=== PATIENT | female | born 1955 | race Caucasian/White ===

== ENCOUNTER → 2017-07-29 | Outpatient (CLI) | payer OTHER | END | disposition home or self-care (01) | LOC: OIH 08:16 | PROVIDERS: ATTEND Family Medicine | DX: I10 Essential (primary) hypertension (principal) | CPT/HCPCS: 71046 ==

== ENCOUNTER → 2019-12-27 | Outpatient (CLI) | payer OTHER | END | disposition home or self-care (01) | LOC: SHCH 14:41 | PROVIDERS: ATTEND Internal Medicine Cardiovascular Disease | DX: I87.2 Venous insufficiency (chronic) (peripheral) (principal); R06.00 Dyspnea, unspecified | CPT/HCPCS: 93306; 93356; 93970 ==

== ENCOUNTER → 2024-03-01 | Outpatient (CLI) | payer OTHER ==
[~2024-03-01] MED LIST: ATOR10 PO; CHOL200074 PO; CYAN-35 PO; HYDR12.54 PO; LOSA100T59 PO; MU-V1TAB28 PO; VITA-348 PO
--- NOTE | 2024-03-01 15:57 | HMCIMG ---
CT CORONARY CALCIFICATION SCORING: Anatomic images were reviewed. The calcium score is being generated and reported separately. This report is for the visualized anatomy only. Visualized portions of the lungs are clear. Hilar and mediastinal structures appear normal. Osseous structures are unremarkable. Impression: 1. Negative noncardiac anatomic findings. 2. The calcium score is 38.9 consistent with a mild degree of calcified plaque. This is 50th percentile for a patient this age. CT was performed with one or more following dose reduction techniques: automated exposure control, adjustment of the mA and kv according to patient's size, or use of a iterative reconstruction technique.
== END | disposition home or self-care (01) ==
LOC: RAH 14:52
PROVIDERS: ATTEND Internal Medicine Cardiovascular Disease
DX: Z13.6 Encounter for screening for cardiovascular disorders (principal)
CPT/HCPCS: 75571

== ENCOUNTER → 2024-10-05 | Outpatient (CLI) | payer OTHER ==
[2024-10-05 13:57] LABS: CREATININE 0.7 mg/dL (0.5-1.0); GLOMERULAR FILTR. RATE CALC 92.0 mL/min (>90); UREA NITROGEN, BLOOD 23.0 mg/dL (7-18)
== END | disposition home or self-care (01) ==
LOC: LAB 13:01
PROVIDERS: ATTEND Internal Medicine Gastroenterology
DX: R19.04 Left lower quadrant abdominal swelling, mass and lump (principal)
CPT/HCPCS: 36415; 82565; 84520

== ENCOUNTER → 2024-10-12 | Outpatient (CLI) | payer OTHER ==
[~2024-10-12] MED LIST changes: +IOHEXOL-350 75 ML VIAL IV ONE
--- NOTE | 2024-10-12 12:20 | HMCIMG ---
EXAM: CT Abdomen and Pelvis with Intravenous Contrast CLINICAL HISTORY: Left lower abdominal swelling mass and lump. TECHNIQUE: Axial computed tomography images of the abdomen and pelvis with intravenous contrast. Dose reduction technique was used including one or more of the following: automated exposure control, adjustment of mA and kV according to patient size, and/or iterative reconstruction. CONTRAST: With 75.0 mL of IV contrast; COMPARISON: 01/23/2024 FINDINGS: LUNG BASES: No basilar airspace consolidation or pleural effusion. LIVER: Unremarkable. GALLBLADDER AND BILE DUCTS: Cholecystectomy clips seen. PANCREAS: Unremarkable. SPLEEN: Unremarkable. ADRENAL GLANDS: Bilateral adrenal hyperplasia seen. KIDNEYS, URETERS, AND BLADDER: Delayed images demonstrate symmetric excretion of contrast from both kidneys. No hydronephrosis or nephrolithiasis. No ureteral or bladder calculi. STOMACH AND BOWEL: Postsurgical changes of small bowels are seen. Sigmoid and left colon diverticulosis seen without diverticulitis. No obstruction. No wall thickening. No CT evidence of colitis. APPENDIX: No CT evidence for appendicitis. PERITONEUM: No free fluid. No free air. LYMPH NODES: No lymphadenopathy. REPRODUCTIVE: Unremarkable as visualized. VASCULATURE: Atherosclerotic aorta iliac bifurcation. ABDOMINAL WALL AND SOFT TISSUES: There is a left lower quadrant anterior abdominal wall hernia containing mesenteric fat and loops of small bowel without obstruction. New compared to prior CT Abdomen and pelvis 01/23/2024. BONES: Mildly degenerative lumbar spine. No fracture or suspicious osseous abnormality. IMPRESSION: 1. Left lower quadrant anterior abdominal wall hernia containing mesenteric fat and loops of small bowel without obstruction, new compared to prior CT Abdomen and pelvis 01/23/2024. 2. Sigmoid and left colon diverticulosis without diverticulitis. 3. Bilateral adrenal hyperplasia. /[place]
== END | disposition home or self-care (01) ==
LOC: RAH 09:32
PROVIDERS: ATTEND Internal Medicine Gastroenterology
DX: K43.9 Ventral hernia without obstruction or gangrene (principal); K57.30 Diverticulosis of large intestine without perforation or abscess without bleeding; E27.8 Other specified disorders of adrenal gland; I70.0 Atherosclerosis of aorta; R19.04 Left lower quadrant abdominal swelling, mass and lump
CPT/HCPCS: 74177; Q9967

== ENCOUNTER 2024-11-16 13:33 | Inpatient (IN) | payer OTHER ==
[~2024-11-16] VITALS: Ht 172.7 cm; Wt 107.9 kg
[~2024-11-16 13:33] MED LIST changes: -IOHEXOL-350 75 ML VIAL IV ONE
--- NOTE | 2024-11-16 13:43 | ERN ---
ED Note History of Present Illness Stated Complaint: ABD PAIN Chief Complaint: Abdominal Pain Time Seen by MD: 13:36 Dictation: PATIENT IS A 69-YEAR-OLD FEMALE COMING IN TODAY WITH COMPLAINTS OF LEFT LOWER QUADRANT PAIN NAUSEA VOMITING ONSET ONE MONTH PRIOR TO ARRIVAL. SHE HAS ALREADY BEEN EVALUATED WITH TWO DIFFERENT PRIOR CTS [facility]OLOG[facility] AND HAS A KNOWN LEFT LOWER QUADRANT HERNIA WITH MESENTERIC FAT AND INTESTINE WITHOUT OBSTRUCTION OR INCARCERATION. SHE IS SCHEDULED FOR A HERNIA REPAIR BY DR. HIPOLITO NEWMAN IN COMSTOCK HOWEVER IS PENDING CARDIAC CLEARANCE. SHE CAME IN TODAY GET SHE STARTED VOMITING LAST NIGHT HER DOCTOR WARNED HER THAT COULD BE STRANGULATION OR INCARCERATION. Allergies: Coded Allergies: No Known Allergies (Unverified Allergy, Unknown, 01/20/24) Home Meds Reported Medications Cholecalciferol (Vitamin D3) (Vitamin D3) 50 Mcg (2000 Unit) Capsule, 1 CAP PO DAILY for 30 Days, #30 CAP 0 Refills 01/20/24 Vitamin E Mixed (Vitamin E) 400 Unit Capsule, 1 CAP PO DAILY for 30 Days, #60 CAP 0 Refills 01/20/24 Cyanocobalamin (Vitamin B-12) (Vitamin B-12) 1,000 Mcg Capsule, 500 MCG PO DAILY, CAP 01/20/24 Atorvastatin Calcium (LIPITOR) 20 Mg Tab, 1 TAB PO HS for 30 Days, #30 TAB 0 Refills 01/20/24 Losartan Potassium (Losartan Potassium) 100 Mg Tablet, 1 TAB PO DAILY for 30 Days, #30 TAB 0 Refills 01/20/24 Hydrochlorothiazide (Hydrochlorothiazide) 12.5 Mg Tablet, 1 TAB PO DAILY for 30 Days, #30 TAB 0 Refills 01/20/24 Multivits-Min/FA/Lycopene/Lut (S[place] Senior Tablet) 0.4 Mg-300 Mcg-250 Mcg Tablet, 1 EACH PO DAILY, TAB 01/20/24 Past Medical History Past Medical History: COPD, High Cholesterol, Hypertension Additional Past Medical Hx: ABD HERNIA Surgical History: Appendectomy, Hysterectomy, Cholecystectomy, Other, Surgical History Other: ABD SX Social History: Smokers History: Not Applicable RN Note Reviewed/Agreed w/PFSH: Yes Review of System Dictation CONSTITUTIONAL: NEGATIVE EXCEPT FOR HPI HEAD/FACE: NEGATIVE EXCEPT FOR HPI EENT: NEGATIVE EXCEPT FOR HPI RESPIRATORY: NEGATIVE EXCEPT FOR HPI GASTROINTESTINAL/ABDOMINAL: NEGATIVE EXCEPT FOR HPI LEFT LOWER QUADRANT PAIN WITH NAUSEA VOMITING GENITOURINARY: NEGATIVE EXCEPT FOR HPI MUSCULOSKELETAL: NEGATIVE EXCEPT FOR HPI INTEGUMENTARY: NEGATIVE EXCEPT FOR HPI NEUROLOGICAL/PSYCH: NEGATIVE EXCEPT FOR HPI HEMATOLOGIC/LYMPHATIC: NEGATIVE EXCEPT FOR HPI ALL SYSTEMS NEGATIVE, EXCEPT NOTED ABOVE. 13 POINT REVIEW OF SYSTEMS ASSESSED AND ALL NEGATIVE EXCEPT FOR ABOVE. Initial Vital Sign VS Vital Signs Date Time Temp Pulse Resp B/P (MAP) Pulse Ox O2 Delivery O2 Flow Rate FiO2 11/16/24 13:35 98.1 83 18 173/103 95 Room Air 0 11/16/24 14:18 32 Physical Exam Dictation VITAL SIGNS REVIEWED GENERAL APPEARANCE: ALERT, ORIENTED X 3, MODERATE ACUTE DISTRESS, WELL DEVELOPED, NOURISHED. HEAD AND FACE: NON-TRAUMATIC. EYES: PERRL, PINK CONJUNCTIVAS, EYELID NO TRAUMA, ANTERIOR CHAMBER WITH ARCUS SENILIS. EARS: PINNAS INTACT AND NO SIGNS OF TRAUMA OR ERYTHEMA EAR CANALS CLEAR AND NO DISCHARGE TM NO ERYTHEMA NOSE: NO DISCHARGE, NO BLEEDING. OROPHARYNX: MOUTH NORMAL, TONGUE PINK, PHARYNX CLEAR,NO ERYTHEMA, TONSILS NO EXUDATES, NO ABSCESSES NOTED, MUCOUS MEMBRANE MOIST NECK: SUPPLE, NON-TENDER, NO THYROMEGALY, NO MASSES, NO JVD, NO BRUITS BREAST:DEFERRED CHEST:NO TENDERNESS, NO CREPITUS, NO PARADOXICAL MOVEMENT, NO RETRACTIONS LUNGS:CLEAR, WELL-VENTILATED, SYMMETRIC, NO RALES, NO WHEEZING, NO RHONCHI, NO STRIDOR, GOOD BREATH SOUNDS BILATERALLY HEART: REGULAR RATE, REGULAR RHYTHM, NO MURMUR, NO GALLOPS VASCULAR: NO PERIPHERAL EDEMA, ABDOMEN: SOFT, POSITIVE BOWEL SOUNDS, NONDISTENDED, NO GUARDING, [id number] LEFT LOWER QUADRANT PAIN TENDERNESS. RECTAL: DEFERRED GENITAL: DEFERRED NEUROLOGICAL: NORMAL SPEECH, MOTOR FUNCTION INTACT, SENSORY FUNCTION INTACT MUSCULOSKELETAL: NECK NONTENDER, FULL RANGE OF MOTION, BACK NONTENDER, FULL RANGE OF MOTION, EXTREMITIES: NONTENDER, FULL RANGE OF MOTION SKIN: COLOR PINK, DRY, NO TURGOR, NO RASH, NO LACERATIONS, NO ABRASIONS, NO CONTUSIONS. LYMPHATIC: DEFERRED Results (Laboratory/Radiology) Laboratory/Radiology Laboratory Tests Test 11/16/24 13:53 11/16/24 16:19 White Blood Count 10.3 K/uL (4.8-10.8) Red Blood Count 6.36 MIL/uL (4.00-5.50) H Hemoglobin 17.5 g/dL (12.0-16.0) H Hematocrit 51.7 % (36-48) H Mean Corpuscular Volume 81.3 fL (79-99) Mean Corpuscular Hemoglobin 27.5 pg (27.0-33.0) Mean Corpuscular Hemoglobin Concent 33.8 g/dL (32.0-36.0) Red Cell Distribution Width 18.0 % (11.0-15.5) H Platelet Count 305 K/uL (130-400) Mean Platelet Volume 8.9 fL (7.5-10.5) Immature Granulocyte % (Auto) 0.5 % (0-1) Neutrophils (%) (Auto) 86.3 % (40.0-77.0) H Lymphocytes (%) (Auto) 11.2 % (21.0-51.0) L Monocytes (%) (Auto) 1.8 % (3.0-13.0) L Eosinophils (%) (Auto) 0.0 % (0.0-8.0) Basophils (%) (Auto) 0.2 % (0.0-5.0) Neutrophils # (Auto) 8.9 K/uL (1.8-7.7) H Lymphocytes # (Auto) 1.2 K/uL (1.0-4.8) Monocytes # (Auto) 0.2 K/uL (0.1-1.0) Eosinophils # (Auto) 0.00 K/uL (0.00-0.70) Basophils # (Auto) 0.02 K/uL (0.00-0.20) Absolute Immature Granulocyte (auto 0.05 K/uL (0-1) Nucleated Red Blood Cells 0.0 % (0.0-0.19) Red Blood Cell Morphology See comments Sodium Level 136 mmol/L (136-145) Potassium Level 3.7 mmol/L (3.5-5.1) Chloride Level 100 mmol/L (101-111) L Carbon Dioxide Level 27 mmol/L (21-32) Blood Urea Nitrogen 14 mg/dL (7-18) Creatinine 0.6 mg/dL (0.5-1.0) Glomerular Filtration Rate Calc 96 mL/min (>90) Random Glucose 157 mg/dL (70-105) H Total Calcium 9.4 mg/dL (8.5-10.1) Lipase 27 U/L (16-77) Urine Color LIGHT-YELLOW (YELLOW) Urine Appearance CLEAR (CLEAR) Urine pH 7.0 (5.0-8.0) Urine Specific [place] OVER (1.001-1.031) Urine Protein 50 mg/dL (NEGATIVE) H Urine Glucose (UA) NEGATIVE mg/dL (NEGATIVE) Urine Ketones 20 mg/dL (NEGATIVE) H Urine Occult Blood MODERATE (NEGATIVE) H Urine Nitrate NEGATIVE (NEGATIVE) Urine Bilirubin NEGATIVE mg/dL (NEGATIVE) Urine Urobilinogen 0.2 mg/dL (0.2-1.0) Urine Leukocyte Esterase NEGATIVE [place]/uL Urine RBC 0-1 /HPF (0-1) Urine WBC 6-10 /HPF (0-1) H Urine Squamous Epithelial Cells RARE /HPF (0-2) Urine Bacteria RARE /HPF (None Seen) KIDNEYS, URETERS, AND BLADDER: The kidneys appear within normal limits. There is no hydronephrosis or hydroureter. No urinary calculi are seen. STOMACH AND BOWEL: Postsurgical changes of the small bowels are seen. No bowel obstruction. Bowel wall thickening in the descending colon and proximal sigmoid colon which is consistent with colitis. APPENDIX: No evidence of acute appendicitis on CT examination. PERITONEUM: No free fluid. No free air. LYMPH NODES: No lymphadenopathy is evident. REPRODUCTIVE: Unremarkable as visualized. VASCULATURE: No evidence of abdominal aortic aneurysm. Atherosclerotic aorta iliac bifurcation. ABDOMINAL WALL AND SOFT TISSUES: No significant interval change in the left lower quadrant anterior abdominal wall hernia containing mesenteric fat and loops of small bowel without obstruction. BONES: No significant interval change in the destructive lytic lesion involving the body and posterior elements of T11 vertebra can be a neoplastic etiology. An associated enhancing soft tissue component is seen at the left paravertebral region with a maximum thickness of 9 mm. Stable lytic lesion with sclerotic margins in L4 vertebra. Mildly degenerative lumbar spine. IMPRESSION: Bowel wall thickening in the descending colon and proximal sigmoid colon which is consistent with colitis. Stable left lower quadrant anterior abdominal wall hernia containing mesenteric fat and small bowel loops, without obstruction. Stable destructive lytic lesion involving T11 vertebra with associated left paravertebral soft tissue component, suspicious for neoplasm. Stable lytic lesion with sclerotic margins in L4 vertebra. /[facility] Reviewed?: Yes EKG Comment: EKG SINUS RHYTHM/HEART RATE 78/AXIS NORMAL/OCCASIONAL PVCS ED Course ED Course Orders Procedure Category Date Status Time Cbc With Differential LAB 11/16/24 Complete 13:38 Urinalysis Profile LAB 11/16/24 Complete 13:38 Ct Abdomen/Pelvis CT 11/16/24 Resulted W/Contrast 13:38 12 Lead Ekg Tracing- EKG 11/16/24 Complete Technical 13:38 0.9%Nacl 1000ml (Ns PHA 11/16/24 Complete 1000ml) 14:00 Morphine 2mg Syg PHA 11/16/24 Complete (Morphine 2mg Syg) 14:00 Ondansetron 4mg Inj PHA 11/16/24 Complete (Zofran 4mg Inj) 14:00 Lipase LAB 11/16/24 Complete 13:38 Basic Metabolic Panel LAB 11/16/24 Complete 13:38 Iohexol (Omnipaque) PHA 11/16/24 Complete 14:29 Morphine 2mg Syg PHA 11/16/24 Complete (Morphine 2mg Syg) 17:00 Culture Urine TIA 11/16/24 In Process 17:00 General Surgery CONPHYSVC 11/16/24 Transmitted Consult 17:04 Gastroenterology CONPHYSVC 11/16/24 Transmitted Consult 17:57 Current Medications Medications (Trade) Dose Ordered Sig/Liz Route PRN Reason Start Time Stop Time Status Last Admin Dose Admin Iohexol (Omnipaque) 75 ml STK-MED ONCE IV 11/16/24 14:29 11/16/24 14:30 DC Morphine Sulfate (morPHINE 2MG SYG) 2 mg ONCE ONCE IVP 11/16/24 14:00 11/16/24 14:01 DC 11/16/24 14:06 Morphine Sulfate (morPHINE 2MG SYG) 2 mg ONCE ONCE IVP 11/16/24 17:00 11/16/24 17:02 DC 11/16/24 17:31 Ondansetron HCl (zoFRAN 4MG INJ) 4 mg ONCE ONCE IVP 11/16/24 14:00 11/16/24 14:01 DC 11/16/24 14:05 Sodium Chloride 1,000 ml @ 0 mls/hr ONCE ONCE IV 11/16/24 14:00 11/16/24 14:01 DC 11/16/24 14:05 Vital Signs Date Time Temp Pulse Resp B/P (MAP) Pulse Ox O2 Delivery O2 Flow Rate FiO2 11/16/24 17:26 82 22 126/70 92 Room Air* 0 21 11/16/24 15:13 58 12 168/90 95 Nasal Cannula* 3 32 11/16/24 14:18 98.2 58 12 159/77 96 Nasal Cannula* 3 32 11/16/24 13:35 98.1 83 18 173/103 95 Room Air 0 1700/spoke with patient and family at length regarding lab findings and CAT scan report. Patient and daughter all aware that she has a lytic lesion to her T11 with a edema suspicious for neoplasm and was shown A CAT scan report. She continues having abdominal pain with nausea we will be given additional Zofran and morphine She would like me to consult Dr. Hipolito Newman her surgeon who was going to perform the hernia repair. All questions answered. 1750/spoke with Dr. Reji Newman and reviewed CT labs. He said he was most concerned regarding the colitis in the lytic lesions To patient's thoracic spine. He said he would see patient in the morning, he did request a consultation with [place] [facility]. Consult sent for Dr. Major Urias 1745/spoke with Dr. Jerry MILLER and reviewed CT labs my consultation with Dr. Reji Newman. All questions answered he agreed to admit patient. Medical Decision Making MDM MDM: Differential diagnosis: Incarcerated versus strangulated hernia, diverticulitis/UTI/electrolyte imbalance/dehydration/ACS/mi Rationale: Tests considered and ordered secondary to shared decision making include: labs, ECG and radiology Previous outside records reviewed: Old ER visits. Risk of complication and/or morbidity or mortality of patient management: None Medications-Per medication reconciliation Need for hospitalization: Patient does meet criteria for hospitalization. We will be admitted for intractable abdominal pain nausea vomiting and lower a bdominal wall hernia Need for emergency major/minor surgery: No we will need surgical consultation with Dr. Hipolito Newman There are no social concerns with this patient. Tobacco abuse Prescription drug management Prescriptions will include symptomatic care Patient's prior external medical records from other ER visits were reviewed by me as indicated. Prior testing and results from previous visits were reviewed. Prior tests were taken into account with medical decision making and resource utilization, independent historian/historians were used to obtain complete medical history. I independently interpreted the test that were performed, results were reviewed by me and considered findings on radiology if ordered. Medical management and examination interpretation discussions were had by me with other qualified healthcare professionals as indicated for the patient's care. DX & DISP Disposition: Inpatient Decision to Admit Time: 17:05 Departure Impression: Primary Impression: Intractable abdominal pain Additional Impressions: Nausea & vomiting, Abdominal wall hernia, Hypochloremia, Hyperglycemia, Acute colitis, Lesion of thoracic vertebra Condition: Stable Referrals: ASHIA DONOVAN M.D. (PCP) Time of Disposition: 17:05 I have reviewed the case, and I agree with, Diagnosis and Plan ABBI JIANG NP Nov 16, 2024 13:43
[2024-11-16] MEDS: 0.9%NACL 1000ML 1,000 ML IV ONE (14:05)
[2024-11-16 14:09] LABS: IMMATURE GRANULOCYTE ABSOLUTE 0.05 K/uL (0-1); NUCLEATED RED BLOOD CELLS 0.0 % (0.0-0.19); PLATELET COUNT (AUTO) 305 K/uL (130-400); RED BLOOD CELL COUNT(AUTO) 6.36 MIL/uL (4.00-5.50); RED CELL DISTRIBUTION WIDTH 18.0 % (11.0-15.5); WHITE BLOOD COUNT (AUTO) 10.3 K/uL (4.8-10.8)
[2024-11-16 14:13] LABS: CREATININE 0.6 mg/dL (0.5-1.0); GLOMERULAR FILTR. RATE CALC 96.0 mL/min (>90); GLUCOSE,RANDOM 157.0 mg/dL (70-105); SODIUM SERUM 136.0 mmol/L (136-145); UREA NITROGEN, BLOOD 14.0 mg/dL (7-18)
[2024-11-16] MEDS ORDERED: IOHEXOL-350 75 ML VIAL IV ONE (14:29)
--- NOTE | 2024-11-16 14:30 | EKG ---
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
--- NOTE | 2024-11-16 15:50 | HMCIMG ---
EXAM: CT Abdomen and Pelvis with IV contrast CLINICAL HISTORY: LEFT LOWER QUADRANT/PELVIC PAIN. NAUSEA VOMITING. HISTORY OF HERNIA TECHNIQUE: Axial computed tomography images of the abdomen and pelvis with intravenous contrast. CONTRAST: with intravenous contrast. COMPARISON: Compared with the previous CT dated 10/12 FINDINGS: LUNG BASES: The lung bases appear clear. No pleural effusions are seen. LIVER: Stable small hypodensity in segment VII, too small to characterize. The liver is enlarged in size. The right hepatic lobe measures up to 21.2 cm. GALLBLADDER AND BILE DUCTS: Post cholecystectomy status with surgical clips in situ.. No biliary ductal dilatation is evident. PANCREAS: Unremarkable. SPLEEN: Unremarkable. ADRENAL GLANDS: No significant interval change in the bulky limbs of the bilateral adrenal glands. KIDNEYS, URETERS, AND BLADDER: The kidneys appear within normal limits. There is no hydronephrosis or hydroureter. No urinary calculi are seen. STOMACH AND BOWEL: Postsurgical changes of the small bowels are seen. No bowel obstruction. Bowel wall thickening in the descending colon and proximal sigmoid colon which is consistent with colitis. APPENDIX: No evidence of acute appendicitis on CT examination. PERITONEUM: No free fluid. No free air. LYMPH NODES: No lymphadenopathy is evident. REPRODUCTIVE: Unremarkable as visualized. VASCULATURE: No evidence of abdominal aortic aneurysm. Atherosclerotic aorta iliac bifurcation. ABDOMINAL WALL AND SOFT TISSUES: No significant interval change in the left lower quadrant anterior abdominal wall hernia containing mesenteric fat and loops of small bowel without obstruction. BONES: No significant interval change in the destructive lytic lesion involving the body and posterior elements of T11 vertebra can be a neoplastic etiology. An associated enhancing soft tissue component is seen at the left paravertebral region with a maximum thickness of 9 mm. Stable lytic lesion with sclerotic margins in L4 vertebra. Mildly degenerative lumbar spine. IMPRESSION: Bowel wall thickening in the descending colon and proximal sigmoid colon which is consistent with colitis. Stable left lower quadrant anterior abdominal wall hernia containing mesenteric fat and small bowel loops, without obstruction. Stable destructive lytic lesion involving T11 vertebra with associated left paravertebral soft tissue component, suspicious for neoplasm. Stable lytic lesion with sclerotic margins in L4 vertebra. /[place]
[2024-11-16 16:34] LABS: APPEARANCE,URINE CLEAR (CLEAR); GLUCOSE, URINE (UA) NEGATIVE (NEGATIVE); LEUKOCYTE ESTERASE ,URINE NEGATIVE Leu/uL (NEGATIVE); NITRATE,URINE NEGATIVE (NEGATIVE); OCCULT BLOOD,URINE MODERATE (NEGATIVE)
[2024-11-16 16:35] LABS: ADD UA MICROSCOPIC YES
[2024-11-16 16:59] LABS: SQUAMOUS EPITHELIAL CELL,UR RARE /HPF (0-2)
--- NOTE | 2024-11-16 17:46 | NUR ---
PT DOES NOT HAVE MEDICATION WITH HER, UNABLE TO RECALL ACCURATE NAMES/DOSING. WAS ADVISED TO BRING MEDS AT EARLIEST OPPORTUNITY
[2024-11-16 19:00] VITALS: BP 138/72; PULSE 76; RESP 12; TEMP 99
[2024-11-16] MEDS ORDERED: guaiFENesin-DM 200/20MG 10ML PO PRN (21:00)
[2024-11-16] MEDS ORDERED: MAG/ALUM/SIMETH 30 ML UDCUP PO PRN (21:00)
[2024-11-16] MEDS ORDERED: NITROGLYCERIN 0.4 MG SL TAB SL PRN (21:00)
[2024-11-16] MEDS ORDERED: GLUCAGON 1MG KIT 1 MG ML IM PRN (21:00)
[2024-11-16] MEDS ORDERED: DEXTROSE 50%-WATER 50 ML DISP.SYRIN IV PRN (21:00)
[2024-11-16] MEDS ORDERED: LACTULOSE 20 GM/30 ML UDCUP PO PRN (21:00)
--- NOTE | 2024-11-16 21:25 | HP ---
[facility] HISTORY & PHYSICAL Date Patient Seen: Nov 16, 2024 Time of Visit: 21:16 Supervising Physician: DR. TAVON PANDA Primary Care Physician: DR. CAITY LOAIZA ([facility]) Outpatient Specialists: [ ] Inpatient Consults: [ ] PROBLEM LIST: 1. ACUTE COLITIS 2. ACUTE COMPLICATED CYSTITIS 3. DIABETES TYPE 2 UNCONTROLLED 4. STABLE LEFT LOWER QUADRANT HERNIA 5. NICOTINE DEPENDENCE 6. MORBID OBESITY CHIEF COMPLAINT: Nausea and vomiting, diarrhea HPI: Patient is a 69-year-old female with past medical history significant for diabetes type 2, hypertension, COPD, and a surgical history of abdominal surgery x2, umbilical hernia repair, oophorectomy, presented to the emergency department complaining of diffuse abdominal pain associated with nausea and vomiting and diarrhea that started yesterday. Patient reports that for the past 24 hours, she has been experiencing watery diarrhea associated with nausea and vomiting. Today, patient decided come to the emergency department for further evaluation and treatment. Patient denies fever, chills, chest pain, dizziness, or any other symptoms. The workup in the emergency department shows a glucose of 157, UA shows UTI, CT abdomen and pelvis shows acute colitis with stable left lower quadrant hernia. Patient will be admitted to medical surgical floor for further evaluation and treatment. PAST MEDICAL HX: see above PAST SURGICAL HX: noncontributory SOCIAL HISTORY: No tobacco, ETOH, or illicit drug use Coded Allergies: No Known Allergies (Unverified Allergy, Unknown, 01/20/24) REVIEW OF SYSTEMS: 12 point ROS reviewed with patient. Pertinent positives mentioned above. Otherwise negative. PHYSICAL EXAM: GENERAL: alert, weak, awake oriented x 3 HEENT: EOMI, Sclera non icteric, moist mucosa NECK: Supple, no JVD, trachea midline LUNGS: Clear breath sounds bilaterally. No wheezes HEART: Regular rate and rhythm. Normal S1 and S2, without murmurs ABD: Abdomen soft, nontender. Bowel sounds present EXT: No clubbing cyanosis or edema NEURO: Alert and oriented to person, follows commands Vital Signs (last 8hr) Date Time Temp Pulse Resp B/P (MAP) Pulse Ox O2 Delivery O2 Flow Rate FiO2 11/16/24 19:00 99.0 76 12 138/72 95 Nasal Cannula 3.0 11/16/24 18:35 68 17 137/77 95 Room Air* 3 N/A Nasal Cannula* 11/16/24 17:26 82 22 126/70 92 Room Air* 0 21 11/16/24 15:13 58 12 168/90 95 Nasal Cannula* 3 32 11/16/24 14:18 98.2 58 12 159/77 96 Nasal Cannula* 3 32 11/16/24 13:35 98.1 83 18 173/103 95 Room Air 0 LABS: Hematology Labs: Test 11/16/24 13:53 Range/Units White Blood Count 10.3 4.8-10.8 K/uL Red Blood Count 6.36 H 4.00-5.50 MIL/uL Hemoglobin 17.5 H 12.0-16.0 g/dL Hematocrit 51.7 H 36-48 % Mean Corpuscular Volume 81.3 79-99 fL Mean Corpuscular Hemoglobin 27.5 27.0-33.0 pg Mean Corpuscular Hemoglobin Concent 33.8 32.0-36.0 g/dL Red Cell Distribution Width 18.0 H 11.0-15.5 % Platelet Count 305 130-400 K/uL Mean Platelet Volume 8.9 7.5-10.5 fL Immature Granulocyte % (Auto) 0.5 0-1 % Neutrophils (%) (Auto) 86.3 H 40.0-77.0 % Lymphocytes (%) (Auto) 11.2 L 21.0-51.0 % Monocytes (%) (Auto) 1.8 L 3.0-13.0 % Eosinophils (%) (Auto) 0.0 0.0-8.0 % Basophils (%) (Auto) 0.2 0.0-5.0 % Neutrophils # (Auto) 8.9 H 1.8-7.7 K/uL Lymphocytes # (Auto) 1.2 1.0-4.8 K/uL Monocytes # (Auto) 0.2 0.1-1.0 K/uL Eosinophils # (Auto) 0.00 0.00-0.70 K/uL Basophils # (Auto) 0.02 0.00-0.20 K/uL Absolute Immature Granulocyte (auto 0.05 0-1 K/uL Nucleated Red Blood Cells 0.0 0.0-0.19 % Red Blood Cell Morphology See comments Chemistry Labs: Test 11/16/24 13:53 Range/Units Sodium Level 136 136-145 mmol/L Potassium Level 3.7 3.5-5.1 mmol/L Chloride Level 100 L 101-111 mmol/L Carbon Dioxide Level 27 21-32 mmol/L Blood Urea Nitrogen 14 7-18 mg/dL Creatinine 0.6 0.5-1.0 mg/dL Glomerular Filtration Rate Calc 96 >90 mL/min Random Glucose 157 H 70-105 mg/dL Total Calcium 9.4 8.5-10.1 mg/dL Lipase 27 16-77 U/L DIAGNOSTICS / RADIOLOGY RESULTS: [ ] PLAN NEURO: Minimize central acting medications as possible. Maintain fall precautions, adequate lighting during the day PULMONARY: Supplemental 02 as needed. Maintain aspiration precautions at all times CARDIOVASCULAR: Follow hemodynamics. Vital signs per facility protocol GI & NUTRITION: Continue with nutritional support. Continue stool softeners and laxatives as needed. Clear liquid diet to advance as tolerated Zofran 4 mg IV q.6 hours p.r.n. for nausea and vomiting KIDNEYS & ELECTROLYTES: Strict monitoring of intake, output and overall fluid balance. Avoid nephrotoxic medications to the extent possible. Medications to be dosed according to renal function. Monitor electrolytes and replace as needed NS at 125 mL/hour ENDOCRINE: Maintain blood glucose between 100-180 at all times. Hypoglycemia protocol in place Accu-Chek a.c. HS Insulin coverage per sliding scale Obtain hemoglobin A1c INFECTIOUS DISEASE: Trend temperature, WBC and procalcitonin level Follow cultures, deescalate antibiotics as soon as possible. Panculture if new onset fever Zosyn 3.375 g IV every 8 hours Urine culture Stool for C diff ONCOLOGY/HEMATOLOGY/COAGULATION: Monitor for s/s of bleeding Monitor hemoglobin, coagulation studies as needed SKIN: Pressure ulcer prevention per facility protocol Specialty mattress ORTHO/REHAB: Continue PT/OT Prophylaxis: Continue GI and DVT prophylaxis Code Status: Full Resuscitation Disposition: TBD Other: Total patient care time exceeds 35 minutes excluding all procedures. Case discussed with Dr. Tavon Panda, and the above plan was formulated. MIKKI MIRZA Nov 16, 2024 21:25
[2024-11-16 21:59] VITALS: BP 129/65; PULSE 70; RESP 15; TEMP 98.6
[2024-11-16] MEDS: ZOSYN 3.375GM+NS 50ML 50 ML IV SCH (22:12)
[2024-11-16] MEDS: 0.9%NACL 1000ML 1,000 ML IV SCH (22:12)
[2024-11-16 22:30] VITALS: O2SAT 94
[2024-11-16 22:46] VITALS: BP 137/68; PULSE 79; RESP 20; TEMP 98.4
[2024-11-17 04:00] VITALS: BP 135/74; PULSE 59; RESP 20; TEMP 98.4
[2024-11-17 04:14] LABS: IMMATURE GRANULOCYTE ABSOLUTE 0.05 K/uL (0-1); NUCLEATED RED BLOOD CELLS 0.0 % (0.0-0.19); PLATELET COUNT (AUTO) 255 K/uL (130-400); RED BLOOD CELL COUNT(AUTO) 5.71 MIL/uL (4.00-5.50); RED CELL DISTRIBUTION WIDTH 17.2 % (11.0-15.5); WHITE BLOOD COUNT (AUTO) 11.2 K/uL (4.8-10.8)
[2024-11-17 04:19] LABS: INR 1.01 (0.85-1.15)
[2024-11-17 04:33] LABS: ASPARTATE AMINOTRANSFERASE 13.0 U/L (10-37); CREATININE 0.6 mg/dL (0.5-1.0); GLOMERULAR FILTR. RATE CALC 96.0 mL/min (>90); GLUCOSE,RANDOM 114.0 mg/dL (70-105); SODIUM SERUM 139.0 mmol/L (136-145); TOTAL PROTEIN, SERUM 6.2 g/dL (6.0-8.3); UREA NITROGEN, BLOOD 11.0 mg/dL (7-18)
[2024-11-17 08:00] VITALS: BP 144/82; PULSE 73; RESP 18; TEMP 98.4
[2024-11-17] MEDS: NICOTINE 14 MG/ 24 HR PATCH TD SCH (09:00)
[2024-11-17] MEDS: FAMOTIDINE 20MG TAB PO SCH (09:14)
[2024-11-17 09:17] VITALS: O2SAT 93
--- NOTE | 2024-11-17 10:42 | NUR ---
DCP:HOME Pt currently lives with sps and dgt in their home. Pt does not have any DME, home health, or provider services. Pt states that she is able to complete ADLs independently. PCP is Dr. Carol Briones and uses [facility] for any RX needs. At [place] pt will want to go home and family can assist with transportation. Addendum: 11/17/24 at 1043 by FADIA AMBRIZ SS Amended: Links added.
[2024-11-17 12:00] VITALS: BP 158/89; PULSE 71; RESP 19; TEMP 98.3
[2024-11-17] MEDS ORDERED: PoTASSium chl 10% ELIXIR 20MEQ 20 MEQ/15 ML UDCUP PO PRN (13:30)
[2024-11-17] MEDS: PoTASSium chloRIDE 20MEQ ER 20 MEQ ERTAB PO PRN (14:23)
--- NOTE | 2024-11-17 15:56 | PN ---
[facility] PROGRESS NOTE Date Patient Seen: Nov 17, 2024 Time of Visit: 15:56 Supervising Physician: Dr. Panda Primary Care Physician: DR. CAITY LOAIZA ([facility]) Outpatient Specialists: [ ] Inpatient Consults: [ ] PROBLEM LIST: 1. ACUTE COLITIS 2. ACUTE COMPLICATED CYSTITIS 3. DIABETES TYPE 2 UNCONTROLLED 4. STABLE LEFT LOWER QUADRANT HERNIA 5. NICOTINE DEPENDENCE 6. MORBID OBESITY INTERVAL HISTORY: Patient was seen at bedside today, currently on room air resting comfortably. Patient describes a scenario in which she was feeling so abdominal discomfort an d took some of her laxative which resulted in her having severe episodes of diarrhea and vomiting for approximately 12 hours at home. Patient has pending C diff and stool panel however she states that she does not believe that she would have any sample to give at this time. Patient also with cystitis found incidentally on this admission. She continues on Zosyn at this time with a white count of 11.2. States that she was getting a workup as outpatient for surgery on it and in renal hernia, no strangulation seen on CT scan. Advised that we would defer to GI to see if she would be eligible for surgery on this admission once her infection is cleared. We will restart patient's home medications today. Plan continue antibiotics Pending C diff and stool sample if possible to collect Follow morning labs No nausea or vomiting episodes since admission GI following Patient with large inguinal hernia no sign of strangulation on CT scan. REVIEW OF SYSTEMS: 12 point ROS reviewed with patient. Pertinent positives mentioned above. Otherwise negative. PHYSICAL EXAM: GENERAL: alert, weak, awake oriented x 3 HEENT: EOMI, Sclera non icteric, moist mucosa NECK: Supple, no JVD, trachea midline LUNGS: Clear breath sounds bilaterally. No wheezes HEART: Regular rate and rhythm. Normal S1 and S2, without murmurs ABD: Abdomen soft, nontender. Bowel sounds present EXT: No clubbing cyanosis or edema NEURO: Alert and oriented to person, follows commands Vital Signs (last 8hr) Date Time Temp Pulse Resp B/P (MAP) Pulse Ox O2 Delivery O2 Flow Rate FiO2 11/17/24 12:00 98.2 71 19 158/89 94 Nasal Cannula 3.0 11/17/24 09:17 93 Nasal Cannula* 3 32 11/17/24 08:00 98.4 73 18 144/82 93 Room Air LABS: Hematology Labs: Test 8/28/25 03:23 11/16/24 13:53 Range/Units White Blood Count 11.2 H 4.8-10.8 K/uL Red Blood Count 5.71 H 4.00-5.50 MIL/uL Hemoglobin 15.6 12.0-16.0 g/dL Hematocrit 47.5 36-48 % Mean Corpuscular Volume 83.2 79-99 fL Mean Corpuscular Hemoglobin 27.3 27.0-33.0 pg Mean Corpuscular Hemoglobin Concent 32.8 32.0-36.0 g/dL Red Cell Distribution Width 17.2 H 11.0-15.5 % Platelet Count 255 130-400 K/uL Mean Platelet Volume 9.3 7.5-10.5 fL Immature Granulocyte % (Auto) 0.4 0-1 % Neutrophils (%) (Auto) 74.5 40.0-77.0 % Lymphocytes (%) (Auto) 18.5 L 21.0-51.0 % Monocytes (%) (Auto) 6.3 3.0-13.0 % Eosinophils (%) (Auto) 0.1 0.0-8.0 % Basophils (%) (Auto) 0.2 0.0-5.0 % Neutrophils # (Auto) 8.3 H 1.8-7.7 K/uL Lymphocytes # (Auto) 2.1 1.0-4.8 K/uL Monocytes # (Auto) 0.7 0.1-1.0 K/uL Eosinophils # (Auto) 0.01 0.00-0.70 K/uL Basophils # (Auto) 0.02 0.00-0.20 K/uL Absolute Immature Granulocyte (auto 0.05 0-1 K/uL Nucleated Red Blood Cells 0.0 0.0-0.19 % Red Blood Cell Morphology See comments Chemistry Labs: Test 11/17/24 11:27 11/17/24 03:23 11/16/24 13:53 Range/Units Whole Blood Glucose 137 H 70-110 MG/DL Sodium Level 139 136-145 mmol/L Potassium Level 3.5 3.5-5.1 mmol/L Chloride Level 103 101-111 mmol/L Carbon Dioxide Level 28 21-32 mmol/L Blood Urea Nitrogen 11 7-18 mg/dL Creatinine 0.6 0.5-1.0 mg/dL Glomerular Filtration Rate Calc 96 >90 mL/min Random Glucose 114 H 70-105 mg/dL Hemoglobin A1c 5.7 4.0-6.0 % Estimated Average Glucose (eAG) 117 70-126 mg/dL Total Calcium 8.7 8.5-10.1 mg/dL Total Bilirubin 0.4 0.2-1.0 mg/dL Aspartate Amino Transf (AST/SGOT) 13 10-37 U/L Alanine Aminotransferase (ALT/SGPT) 26 12-78 U/L Alkaline Phosphatase 69 50-136 U/L Total Protein 6.2 6.0-8.3 g/dL Albumin 3.1 L 3.5-5.0 g/dL Lipase 27 16-77 U/L Coagulation Labs: Test 11/17/24 03:23 Range/Units Prothrombin Time 10.7 9.6-11.6 SEC Prothromb Time International Ratio 1.01 0.85-1.15 Activated Partial Thromboplast Time 28.9 26.3-35.5 SEC DIAGNOSTICS / RADIOLOGY RESULTS: [ ] PLAN NEURO: Minimize central acting medications as possible. Maintain fall precautions, adequate lighting during the day PULMONARY: Supplemental 02 as needed. Maintain aspiration precautions at all times CARDIOVASCULAR: Follow hemodynamics. Vital signs per facility protocol GI & NUTRITION: Continue with nutritional support. Continue stool softeners and laxatives as needed. Clear liquid diet to advance as tolerated Zofran 4 mg IV q.6 hours p.r.n. for nausea and vomiting KIDNEYS & ELECTROLYTES: Strict monitoring of intake, output and overall fluid balance. Avoid nephrotoxic medications to the extent possible. Medications to be dosed according to renal function. Monitor electrolytes and replace as needed NS at 125 mL/hour ENDOCRINE: Maintain blood glucose between 100-180 at all times. Hypoglycemia protocol in place Accu-Chek a.c. HS Insulin coverage per sliding scale Obtain hemoglobin A1c INFECTIOUS DISEASE: Trend temperature, WBC and procalcitonin level Follow cultures, deescalate antibiotics as soon as possible. Panculture if new onset fever Zosyn 3.375 g IV every 8 hours Urine culture Stool for C diff ONCOLOGY/HEMATOLOGY/COAGULATION: Monitor for s/s of bleeding Monitor hemoglobin, coagulation studies as needed SKIN: Pressure ulcer prevention per facility protocol Specialty mattress ORTHO/REHAB: Continue PT/OT Prophylaxis: Continue GI and DVT prophylaxis Code Status: Full Resuscitation Disposition: TBD Other: Total patient care time exceeds 35 minutes excluding all procedures. Case discussed with Dr. Jerry Panda, and the above plan was formulated. BAHMAN MORALES Nov 17, 2024 15:56
[2024-11-17 16:00] VITALS: BP 154/87; PULSE 71; RESP 19; TEMP 98.1
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
[2024-11-17] MEDS: PEG 3350/NA SULF,BICARB,CL/KCL 4000 ML SOLN PO ONE (19:32)
[2024-11-17 20:00] VITALS: BP 167/95; PULSE 67; RESP 20; TEMP 98.2; O2SAT 97
--- NOTE | 2024-11-17 20:00 | NUR ---
ENEMA ENEMA GIVEN X 2 PER MD ORDER, FARHEEN ONGOING. PT UNDERSTANDS FOR BEST RESULT WILL NEED TO FINISH FARHEEN.
[2024-11-18] VITALS (19 sets, daily range): BP systolic 119–148; BP diastolic 63–87; PULSE 64–89; RESP 16–20; TEMP 97–98.6; O2SAT 98
--- NOTE | 2024-11-18 05:33 | NUR ---
ENEMA ENEMA GIVEN X 2 PER MD ORDER. TOLERATED WELL.
--- NOTE | 2024-11-18 10:03 | NUR ---
PATIENT OFF UNIT PATIENT OFF UNIT FOR COLONOSCOPY.
--- NOTE | 2024-11-18 11:30 | NUR ---
PATIENT REPORT RECEIVED REPORT FROM COLT IN PACU, PATIENT IN STABLE CONDITION. COLONOSCOPY WITH DR. VILLALPANDO-DIVERTICULOSIS IN SIGMOID AND ASCENDING COLON. BIOPSIES OBTAINED. NO NSAIDS, HIGH FIBER DIET, F/U WITH GI IN ONE WEEK. PATIENT MAY START FULL LIQUID DIET.
--- NOTE | 2024-11-18 12:00 | NUR ---
UNIT ARRIVAL RECEIVED PATIENT FROM PACU NURSE. PATIENT AWAKE AND ALERT. PATIENT REPORTS NO PAIN AT THIS TIME. NO SIGNS OF DISTRESS NOTED VITALS WITHIN NORMAL LIMITS.
[2024-11-18] MEDS ORDERED: METR-172 PO (16:18)
--- NOTE | 2024-11-18 16:18 | DS ---
[facility] DISCHARGE SUMMARY Date Patient Seen: Nov 18, 2024 Time of Visit: 16:18 Supervising Physician: Dr. Klein Primary Care Physician: DR. CAITY LOAIZA ([facility]) Outpatient Specialists: [ ] Inpatient Consults: [ ] HOSPITAL COURSE: HPI (per admitting provider) Patient is a 69-year-old female with past medical history significant for diabetes type 2, hypertension, COPD, and a surgical history of abdominal surgery x2, umbilical hernia repair, oophorectomy, presented to the emergency department complaining of diffuse abdominal pain associated with nausea and vomiting and diarrhea that started yesterday. Patient reports that for the past 24 hours, she has been experiencing watery diarrhea associated with nausea and vomiting. Today, patient decided come to the emergency department for further evaluation and treatment. Patient denies fever, chills, chest pain, dizziness, or any other symptoms. The workup in the emergency department shows a glucose of 157, UA shows UTI, CT abdomen and pelvis shows acute colitis with stable left lower quadrant hernia. Patient will be admitted to medical surgical floor for further evaluation and treatment. The patient was treated for the following problems: Patient was admitted after an episode of severe diarrhea and vomiting with suspicion of colitis on CT scan. Patient underwent colonoscopy which showed diverticulosis without indication of colitis, biopsies were taken. Patient's diet was advanced and she was able to tolerate food. Patient was discharged home with the expectation and meet with GI in two weeks for final results on biopsies as well as prescription for metronidazole to complete at home. Patient was educated on the need to keep hydration. Outpatient hernia intervention to be planned by GI in the clinic. ACTIVE PROBLEM LIST FOR THE HOSPITALIZATION: 1. ACUTE COLITIS 2. ACUTE COMPLICATED CYSTITIS CHRONIC PROBLEMS: continue previous management per PCP unless otherwise indicated 3. DIABETES TYPE 2 UNCONTROLLED 4. STABLE LEFT LOWER QUADRANT HERNIA 5. NICOTINE DEPENDENCE 6. 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 PCP notified of patients admission, hospital course and discharge. PHYSICAL EXAM: GENERAL: alert, weak, awake oriented x 3 HEENT: EOMI, Sclera non icteric, moist mucosa NECK: Supple, no JVD, trachea midline LUNGS: Clear breath sounds bilaterally. No wheezes HEART: Regular rate and rhythm. Normal S1 and S2, without murmurs ABD: Abdomen soft, nontender. Bowel sounds present EXT: No clubbing cyanosis or edema NEURO: Alert and oriented to person, follows commands FOLLOW-UP: Follow-up with PCP in 2-3 days RECOMMENDATIONS: See Discharge Instructions This case was seen and discussed with my supervising physician. More than 30 minutes spent on discharge process, including evaluation of the patient, discussion with nursing staff, medication reconciliation and follow-up appointments BAHMAN MORALES Nov 18, 2024 16:18
--- NOTE | 2024-11-18 17:19 | NUR ---
PATIENT DISCHARGED. PERIPHERAL IV REMOVED, CATHETER INTACT. DISCHARGE INSTRUCTIONS GIVEN. PRESCRIPTIONS FAXED TO PHARMACY. PATIENT AWARE TO F/U WITH PCP. PATIENT AWARE TO KEEP F/U APPOINTMENT WITH GI. ALL QUESTIONS ANSWERED. PATIENT TAKEN DOWN BY WHEELCHAIR.
== END 2024-11-18 17:30 | disposition home or self-care (01) | DRG 392 ==
LOC: EDH 13:33 → EDHIP 18:02 → 4DH 22:30
PROVIDERS: ADMIT Internal Medicine; ATTEND Internal Medicine
PROC: 0DBG8ZX Excision of Left Large Intestine, Via Natural or Artificial Opening Endoscopic, Diagnostic (ICD-10-PCS; principal; 2024-11-18)
PROC: 0DBN8ZZ Excision of Sigmoid Colon, Via Natural or Artificial Opening Endoscopic (ICD-10-PCS; 2024-11-18)
PROC: 0DBF8ZX Excision of Right Large Intestine, Via Natural or Artificial Opening Endoscopic, Diagnostic (ICD-10-PCS; 2024-11-18)
DX: K52.9 Noninfective gastroenteritis and colitis, unspecified (principal); N30.00 Acute cystitis without hematuria; K57.30 Diverticulosis of large intestine without perforation or abscess without bleeding; E11.65 Type 2 diabetes mellitus with hyperglycemia; K46.9 Unspecified abdominal hernia without obstruction or gangrene; K43.9 Ventral hernia without obstruction or gangrene; E66.01 Morbid (severe) obesity due to excess calories; E78.00 Pure hypercholesterolemia, unspecified; D12.5 Benign neoplasm of sigmoid colon; E87.8 Other disorders of electrolyte and fluid balance, not elsewhere classified; F17.200 Nicotine dependence, unspecified, uncomplicated; I10 Essential (primary) hypertension; J44.9 Chronic obstructive pulmonary disease, unspecified; Z90.710 Acquired absence of both cervix and uterus; Z68.36 Body mass index [BMI] 36.0-36.9, adult
CPT/HCPCS: 36415; 45380; 45385; 74177; 80048; 80053; 81001; 82948; 83036; 83690; 85025; 85610; 85730; 86850; 86870; 86900; 86901; 86905; 86922; 87086; 87186; 88305; 93005; 96374; 96375; 96376; 99285; G0378; J0360; J2270; J2405; J2543; J2704; J7030; Q9967; A4215; A4222; A4223; A4620; J3490

== ENCOUNTER → 2024-12-14 | Outpatient (CLI) | payer OTHER ==
[~2024-12-14] MED LIST changes: +GADOTERATE MEGLUMINE 10 MMOL/20 ML VIAL IV ONE; -HYDR12.54 PO; +METR-172 PO
--- NOTE | 2024-12-16 05:44 | HMCIMG ---
EXAM: MR Lumbar Spine with and without Intravenous Contrast. CLINICAL HISTORY: Lytic lesion on x-ray. TECHNIQUE: Magnetic resonance images of the lumbar spine in multiple planes without and with IV contrast. COMPARISON: None. FINDINGS: For this examination, spinal levels were labeled assuming five [id number], lumbar-type vertebrae, with the inferior labeled L5. No acute fracture. Normal lordotic curvature. Normal vertebral body height. There are enhancing altered signal intensity lesions involving the T11 thoracic vertebra and L4 vertebra, appearing hypertensive T1 T1-weighted images, and hyperintense on T2/STIR images. Altered signal intensity and postcontrast enhancement also involves the left pedicle of the T11 vertebra with extraosseous component, extending to the adjacent left paraspinal soft tissue, which measures about 3.3 x 2.8 cm with surrounding soft tissue edema (series 6, image 4), there is severe narrowing in the left T11-T12 neural foramina with possible impingement on the corresponding left exiting T11 nerve root. The features concerning for new metastasis. L2 vertebral body hemangioma. Normal vertebral body height of the lumbar vertebra. Multilevel disc desiccation and mild degenerative reduction in disc space at the L2-L3 level and moderate degenerative reduction in disc space at the L5-S1 level. Mild disc bulges at L2-L3, L3-L4, L4-L5, and L5-S1 levels and multilevel degenerative facet arthropathy. Conus medullaris terminates at the T12-L1 level. No abnormal epidural masses. The surrounding soft tissues are unremarkable. Individual spinal levels are described as follows: T12-L1: No disc bulge or herniation. No neural foraminal, lateral recess, or spinal canal stenosis. L1-L2: No disc bulge or herniation. No neural foraminal, lateral recess, or spinal canal stenosis. L2-L3: Mild disc desiccation. Broad-based circumferential 4 mm disc bulge with a greater left-sided component. Minimal bilateral facet joint effusion. No significant lateral recess, neural foraminal narrowing, or nerve impingement. No evidence of spinal canal stenosis. L3-L4: Mild disc desiccation and minimal 2 mm disc bulge and minimal right facet joint effusion. Moderate bilateral facet arthropathy and ligamentum flavum hepatorrhaphy. Mild narrowing of the right neural foramina. Mild ligamentum flavum hypertrophy. Mild narrowing of the right neural foramina. Abutment of the right exiting L3 nerve root. L4-L5: Mild disc desiccation with 4 mm posterior central annular tear. Moderate bilateral facet arthropathy and ligamentum flavum hypertrophy. Moderate narrowing of the right neural foramina and mild narrowing of the left neural foramina, right lateral recess. Abutment of the right exiting L4 and traversing L5 nerve root. No spinal canal stenosis. L5-S1: Disc desiccation. Degenerative reduction in disc space. Broad-based circumferential 5 mm disc osteophyte complex bulge and bilateral facet arthropathy, left more than right. A lobulated 12 mm sclerotic focus in the left iliac bone is probably a bone island; however, the possibility of metastasis is not excluded. 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 A lobulated 12 mm sclerotic focus in the left iliac bone is probably a bone island; however, the possibility of metastasis is not excluded. Normal vertebral body height of the lumbar vertebra. Multilevel disc desiccation and mild degenerative reduction in disc space at the L2-L3 level and moderate degenerative reduction in disc space at the L5-S1 level. Mild disc bulges at L2-L3, L3-L4, L4-L5, and L5-S1 levels and multilevel degenerative facet arthropathy. Mild to moderate degenerative changes in the lumbar spine, most prominent at the L5-S1 level. /[place]
== END | disposition home or self-care (01) ==
LOC: RAH 10:58
PROVIDERS: ATTEND Family Medicine
DX: C79.51 Secondary malignant neoplasm of bone (principal); M47.817 Spondylosis without myelopathy or radiculopathy, lumbosacral region; M51.379 Other intervertebral disc degeneration, lumbosacral region without mention of lumbar back pain or lower extremity pain; M25.78 Osteophyte, vertebrae; M89.9 Disorder of bone, unspecified; M48.061 Spinal stenosis, lumbar region without neurogenic claudication
CPT/HCPCS: 72158; A9575

== ENCOUNTER 2024-12-23 06:30 | Inpatient (IN) | payer OTHER ==
[2024-12-19 09:31] VITALS: BP 139/95; PULSE 96; RESP 14; TEMP 98.2
[2024-12-19 09:33] LABS: IMMATURE GRANULOCYTE ABSOLUTE 0.04 K/uL (0-1); NUCLEATED RED BLOOD CELLS 0.0 % (0.0-0.19); PLATELET COUNT (AUTO) 277 K/uL (130-400); RED BLOOD CELL COUNT(AUTO) 6.10 MIL/uL (4.00-5.50); RED CELL DISTRIBUTION WIDTH 18.7 % (11.0-15.5); WHITE BLOOD COUNT (AUTO) 9.2 K/uL (4.8-10.8)
[2024-12-19 09:34] LABS: APPEARANCE,URINE CLEAR (CLEAR); GLUCOSE, URINE (UA) NEGATIVE (NEGATIVE); LEUKOCYTE ESTERASE ,URINE 25 Leu/uL (NEGATIVE); NITRATE,URINE NEGATIVE (NEGATIVE); OCCULT BLOOD,URINE LARGE (NEGATIVE)
[2024-12-19 09:41] LABS: CREATININE 0.7 mg/dL (0.5-1.0); GLOMERULAR FILTR. RATE CALC 92.0 mL/min (>90); GLUCOSE,RANDOM 118.0 mg/dL (70-105); SODIUM SERUM 140.0 mmol/L (136-145); UREA NITROGEN, BLOOD 17.0 mg/dL (7-18)
[2024-12-19 09:47] LABS: ADD UA MICROSCOPIC YES; INR 0.95 (0.85-1.15)
[2024-12-19 10:03] LABS: SQUAMOUS EPITHELIAL CELL,UR MOD /HPF (0-2)
--- NOTE | 2024-12-19 10:41 | EKG ---
[facility] Test Date: 2024-12-19 Test Time: 09:13:02 Pat Name: TWILA DOMINGUEZ Department: [facility] Room: Gender: F Receiver/Laborer: [id number] : 1955 Requested By: NATHALY NAVARRETE Order Number: [id number] Reading MD: Reji Higginbotham Measurements Intervals [place] Rate: 85 P: 34 RI: 151 QRS: 67 QRSD: 81 T: 70 QT: 369 QTc: 440 Interpretive Statements Sinus rhythm Compared to ECG 11/16/2024 13:55:47 Ventricular premature complex(es) no longer present Electronically Signed On 12-19-2024 13:43:41 CDT by Reji Higginbotham Please click the below link to view image of tracing.
[~2024-12-23] VITALS: Ht 172.7 cm; Wt 109.4 kg
[2024-12-23] VITALS (27 sets, daily range): BP systolic 127–155; BP diastolic 59–90; PULSE 72–92; RESP 13–22; TEMP 97.6–98.1; O2SAT 91–95
[~2024-12-23 06:30] MED LIST changes: -CHOL200074 PO; +ERGO500093 PO; +FISH1CAP63 PO; +FLUT1AER IH; -GADOTERATE MEGLUMINE 10 MMOL/20 ML VIAL IV ONE; +LINA290C PO; -METR-172 PO
[2024-12-23 08:49] LABS: CREATININE 0.5 mg/dL (0.5-1.0); GLOMERULAR FILTR. RATE CALC 100.0 mL/min (>90); GLUCOSE,RANDOM 118.0 mg/dL (70-105); SODIUM SERUM 143.0 mmol/L (136-145); UREA NITROGEN, BLOOD 11.0 mg/dL (7-18)
[2024-12-23] MEDS ORDERED: LIDOCAINE PF 100MG/5ML (2%) SYRINGE 5ML ONE (08:55)
[2024-12-23] MEDS ORDERED: MIDAZOLAM HCL 1 MG/ML 2ML VIAL ONE (08:55)
[2024-12-23] MEDS ORDERED: GLYCOPYRROLATE 0.2 MG/ML 5 ML VIAL ONE (11:18)
[2024-12-23] MEDS ORDERED: NEOSTIGMINE METHYLSULFATE 1MG/ML IV ONE (11:18)
--- NOTE | 2024-12-23 15:46 | OP ---
Operative Note: DATE OF PROCEDURE: 12/23/24 SURGEON: NATHALY NAVARRETE MD VEGETABLE CUTTER: [] ANESTHESIA: General endotracheal ANESTHESIOLOGIST/MACHINE HEEL SPRAYER: Aydin Gibbs CRNA PREOPERATIVE DIAGNOSIS: LOWER ABDOMEN VENTRAL HERNIA POSTOPERATIVE DIAGNOSIS: Large Cambodian cheese defect ventral hernia measuring 20 x 15 cm in size incarcerated SYNOPSIS: [] PROCEDURE: Laparoscopic lysis of adhesions, converted to open ventral hernia repair with mesh of hernia 20 x 15 cm incarcerated ESTIMATED BLOOD LOSS: 10 cc INDICATIONS: Patient with large ventral hernia very symptomatic needing repair Specimens removed: Hernia sac Devices left in place: 10 Slovak flat drain, Phasix mesh25 x 20 cm DESCRIPTION OF PROCEDURE: The patient is brought to the operating room placed on the operating table in a supine position. Once general endotracheal anesthesia was achieved patient's abdomen is prepped and draped in sterile fashion. I created a transverse incision at the left upper quadrant at jauregui's point. Under direct visualization with the Optiview went through the abdominal wall and entered the abdominal cavity. Obtain pneumoperitoneum. We then proceeded to place a 8 mm trocar in the right upper quadrant and one at the epigastrium. Switched out the 5 mm trocar in the left upper quadrant for an8 mm trocar. There was significant amount of omental adhesions to the abdominal wall. We proceeded to dock the robot and We then proceeded to take all the adhesions down with the scissors with cautery. Once all the adhesions were taken down we then evaluated the hernia. There was multiple hernias this was a Cambodian cheese defect. There were multiple smaller hernias of the midline and the larger one in the left lower quadrant. There was some small bowel incarcerated within the hernia in the left lower quadrant that was released with a very careful dissection with the scissors. We then proceeded to measure the defect with a ruler and it measured 20 x 15cm. This defect it was much too big to be able to repair robotically. Decision is made to convert to open hernia repair. We then proceeded to undock the robot. And remove all robotic instruments. I then proceeded to do a midline laparotomy incision dissected through the skin and subcutaneous tissue and entered the hernia sac. Then dissected the hernia sac off of the subcutaneous tissue and off of the fascia. Exposed all the fasc ia edges. And again measured the defect once they were all connected all the Cambodian cheese defects. In the again measured 20 x 15 cm. Because of patient's obesity and smoking she is a high risk for infections. And for recurrence decision is made to use a Phasix mesh and we selected the 25 x 20 cm. I then proceeded to secure the mesh with a trans fascial sutures with 1. Prolene at 12, 3, 9 and 6:00 positions , and then used the absorbable Tacker to secure it in between the sutures. We then proceeded to primarily close the fascia with double-stranded 1. PDS in running fashion and it came together without any tension. I placed a 10 Slovak flat drain within the subcutaneous tissue secured it to the skin in the left lower quadrant with 2-0 nylon suture. We then proceeded to close the subcutaneous tissue with 3-0 Vicryl sutures. Skin was closed with 4-0 Monocryl running subcuticular fashion. Dermabond is applied over the top abdominal binder is placed. Patient tolerated the procedure well all counts correct x2 at the end of the procedure NATHALY NAVARRETE MD Dec 23, 2024 15:46
[2024-12-23] MEDS: LACTATED RINGERS 1000ML 1,000 ML IV ONE (16:25)
[2024-12-23] MEDS: CYCLOBENZAPRINE HCL 10 MG TABLET PO SCH (20:06)
--- NOTE | 2024-12-23 20:10 | NUR ---
MEDS SHIFT ASSESSMENT DONE, PLEASE REFER TO CHART. PT CLAIMS OF POST OP ABDOMINAL PAINS. NO PASSAGE OF GAS YET AT THIS TIME. DUE MEDS ADMINISTERED, TOLERATED WELL. KEPT RESTED AND COMFORTABLE IN BED WITH HOB ELEVATED. CALL LIGHT WITHIN REACH. WILL RE-ASSESS PT. FAMILY AT BEDSIDE.
[2024-12-24] VITALS (13 sets, daily range): BP systolic 115–148; BP diastolic 64–94; PULSE 82–101; RESP 18–22; TEMP 97.7–99.2; O2SAT 90–92
--- NOTE | 2024-12-24 00:39 | NUR ---
PAGED PAGED DYNAMICS AX CONSULTANT [employer]IV[employer]IES COORDINATOR VIA ANSWERING SERVICE TO INFORM OF CONSULT. AT 0045AM, DYNAMICS AX CONSULTANT ALONSO CALLED BACK. INFORMED OF CONSULT AND UPDATED ON PT'S CONDITION. DYNAMICS AX CONSULTANT STATED WILL SEE PT AFTER ER RUN. NEW ORDERS RECEIVED, PLEASE REFER TO CPOE.
[2024-12-24 05:12] LABS: IMMATURE GRANULOCYTE ABSOLUTE 0.07 K/uL (0-1); NUCLEATED RED BLOOD CELLS 0.0 % (0.0-0.19); PLATELET COUNT (AUTO) 291 K/uL (130-400); RED BLOOD CELL COUNT(AUTO) 5.51 MIL/uL (4.00-5.50); RED CELL DISTRIBUTION WIDTH 17.6 % (11.0-15.5); WHITE BLOOD COUNT (AUTO) 16.8 K/uL (4.8-10.8)
[2024-12-24 05:26] LABS: CREATININE 0.6 mg/dL (0.5-1.0); GLOMERULAR FILTR. RATE CALC 96.0 mL/min (>90); GLUCOSE,RANDOM 133.0 mg/dL (70-105); SODIUM SERUM 140.0 mmol/L (136-145); UREA NITROGEN, BLOOD 13.0 mg/dL (7-18)
--- NOTE | 2024-12-24 06:00 | NUR ---
FIELD RECORDER ELIZABETH GUPTA IN TO SEE PT FOR CONSULT. STATED WILL PLACE ORDERS IN.
--- NOTE | 2024-12-24 06:28 | CONS ---
[facility] CONSULTATION NOTE Date of Service: Dec 24, 2024 Reason for Consultation: [ medical management ] Requesting Physician: [ ] HISTORY OF PRESENT ILLNESS: This is a 69-year-old female with past medical history of diabetes, hypertension, hyperlipidemia, Chronic obstructive pulmonary disease on home O2 as needed, nicotine dependence ,morbid obesity and lower abdomen ventral hernia who underwent status post laparoscopic lysis of adhesions converted to open ventral hernia repair with mesh of hernia incarcerated on 12/23/[address] Blanco.Patient seen and examined in [id number] awake,alert and coherent,continue to complain of mild abdominal pain.Patient is on oxygen supplementation.Patient reports her last bowel movement was last 2 days ago, and it was normal.Patient denies nausea,vomiting ,cough,shortness of breath,chest pain and palpitation. Latest vital signs temperature 98.1, heart rate 85, blood pressure 115/64 saturation 93% on 3 L nasal cannula.Spoke to primary nurse no significant event reported.Hospitalist is consulted for medical management. REVIEW OF SYSTEMS CONSTITUTIONAL: Denies fevers, chills, or night sweats. No unintentional weight loss reported. NEUROLOGICAL: Denies headache, amaurosis fugax, motor weakness, sensory deficit, vertigo/spinning sensation, gait abnormalities, or tremors. ENT: No hearing loss, otalgia, otorrhea, rhinitis, rhinorrhea, hoarseness, or sore throat. CARDIOVASCULAR: Denies any exertional angina, dyspnea on exertion, orthopnea, paroxysmal nocturnal dyspnea, palpitations, life-threatening arrhythmias, claudication. PULMONARY: Denies any shortness of breath, cough, phlegm/sputum, hemoptysis, pleuritic chest pain. SLEEP: Denies morning headaches, daytime somnolence or napping. Denies difficulty falling asleep, staying asleep, waking from sleep. Denies knowledge of snoring. GASTROINTESTINAL: complain of mild abdominal pain Denies any type of dysphagia to either liquids or solids. Denies nausea, vomiting, pyrosis, early satiety,diarrhea, constipation, or changes in stool consistency or caliber. Denies coffee-ground emesis, hematemesis, hematochezia, or melanotic stools. GENITOURINARY: Denies frequency, urgency, nocturia, hematuria or incontinence (Storage/Irritative symptoms.) Low urinary stream, straining to void, urinary intermittency or hesitancy, splitting of the voiding stream, terminal dribbling. ENDOCRINOLOGIC: Denies polyuria, polydipsia, polyphagia or heat/cold intolerances. HEMATOLOGIC: Denies thrombophilia/previous clots, or coagulopathy/bleeding disorders. ONCOLOGIC: Denies personal history of malignancy. DERMATOLOGIC: Denies rashes or pruritus. PSYCHIATRIC: Denies any suicidal or homicidal ideation. Denies hallucinations. PAST MEDICAL HISTORY: [Diabetes, hyperlipidemia, hypertension, Chronic obstructive pulmonary disease on home O2 as needed Morbid obesity, nicotine dependence, left lower quadrant hernia, diabetes type 2, ] PAST SURGICAL HISTORY: [ , hysterectomy, cholecystectomy, appendectomy, hemicolectomy right lap 03/21/2016 ] PAST SOCIAL HISTORY: [ Patient admits to smoking one pack of cigarette per day denies alcohol and recreational drug use. ] FAMILY HISTORY: [ Hypertension, stroke, cardiovascular disease and asthma ] Coded Allergies: codeine (Unverified Allergy, Unknown, 12/19/24) PHYSICAL EXAM GENERAL APPEARANCE: The patient is awake, alert, and oriented, in no acute cardiopulmonary distress. NEUROLOGICAL: Cranial nerves II-XII grossly intact. Motor is 5/5 in bilateral upper and lower extremities proximal to distal. No sensory deficits. HEENT: Face is symmetric. Pupils are equal and reactive. Extraocular movements are intact. NECK: Supple. No JVD. No thyromegaly. No submental, submandibular, pre- /postauricular, occipital or supraclavicular lymphadenopathy. CHEST: Normal chest expansion. No Telemetry. LUNGS: Absence of any rales, rhonchi or any wheezing. CARDIOVASCULAR: Regular. S1 and S2 normal. No appreciable rubs, murmurs or gallops. ABDOMEN: + MATEO Soft and nondistended. There is no rebound, voluntary guarding, or rigidity. : Deferred. No Palomo. EXTREMITIES: Non-edematous and not cyanotic. No clubbing. Good capillary refill. SKIN: No skin breakdown. Vital Sign (Last 24 Hours) 12/23/24 12/24/24 12/24/24 20:10 00:00 04:00 Temp 98.1 Pulse 85 Resp 18 B/P (MAP) 115/64 Pulse Ox 93 O2 Delivery Room Air O2 Flow Rate 3.0 FiO2 36 Intake & Output (last 24hrs) 12/23/24 12/23/24 12/24/24 15:00 23:00 07:00 Intake Total 45.0 ml 220 ml 1800 ml Output Total 5 ml 90 ml Balance 40.0 ml 130 ml 1800 ml LABS: Laboratory: Test 12/24/24 05:22 12/24/24 04:49 Range/Units Whole Blood Glucose 141 H 70-110 MG/DL White Blood Count 16.8 H 4.8-10.8 K/uL Red Blood Count 5.51 H 4.00-5.50 MIL/uL Hemoglobin 15.3 12.0-16.0 g/dL Hematocrit 47.0 36-48 % Mean Corpuscular Volume 85.3 79-99 fL Mean Corpuscular Hemoglobin 27.8 27.0-33.0 pg Mean Corpuscular Hemoglobin Concent 32.6 32.0-36.0 g/dL Red Cell Distribution Width 17.6 H 11.0-15.5 % Platelet Count 291 130-400 K/uL Mean Platelet Volume 9.1 7.5-10.5 fL Immature Granulocyte % (Auto) 0.4 0-1 % Neutrophils (%) (Auto) 77.3 H 40.0-77.0 % Lymphocytes (%) (Auto) 13.7 L 21.0-51.0 % Monocytes (%) (Auto) 8.3 3.0-13.0 % Eosinophils (%) (Auto) 0.1 0.0-8.0 % Basophils (%) (Auto) 0.2 0.0-5.0 % Neutrophils # (Auto) 13.0 H 1.8-7.7 K/uL Lymphocytes # (Auto) 2.3 1.0-4.8 K/uL Monocytes # (Auto) 1.4 H 0.1-1.0 K/uL Eosinophils # (Auto) 0.02 0.00-0.70 K/uL Basophils # (Auto) 0.03 0.00-0.20 K/uL Absolute Immature Granulocyte (auto 0.07 0-1 K/uL Nucleated Red Blood Cells 0.0 0.0-0.19 % Sodium Level 140 136-145 mmol/L Potassium Level 4.7 3.5-5.1 mmol/L Chloride Level 103 101-111 mmol/L Carbon Dioxide Level 29 21-32 mmol/L Blood Urea Nitrogen 13 7-18 mg/dL Creatinine 0.6 0.5-1.0 mg/dL Glomerular Filtration Rate Calc 96 >90 mL/min Random Glucose 133 H 70-105 mg/dL Total Calcium 8.7 8.5-10.1 mg/dL DIAGNOSTICS / RADIOLOGY: [ ] ASSESSMENT: Ventral hernia S/P Laparoscopic lysis of adhesions converted to open ventral hernia repair with mesh incarcerated POA Diabetes type 2 POA Hypertension POA Hyperlipidemia POA COPD on home O2 as needed POA Morbid obesity POA Nicotine dependence POA PLAN: We will admit patient in medical surgical Patient on GI soft diet per surgeon's recommendation We will start on Protonix 40 mg po daily for GI prophylaxis We will replace electrolytes as needed per protocol We will start on insulin sliding scale AC & HS with hypoglycemia protocol We will add prn medication for fever,pain,cough , nausea and vomiting May continue oxygen supplementation to keep Sat above 92% Continue IS Q1H x10 while awake Counseled on smoking cessation Further orders to follow depending on above results Case discussed with attending physician and came up with above treatment and plan of care. ADVANCED CARE PLANNING 1. Which of the following were discussed? Hospice Care - No Therapeutic options - Yes Advance Directives - No Other discussions - 2. Discussed with who? Patient 3. Voluntary nature of this service was explained to the patient? Yes 4. Amount of time spent - _23 min 5. Reviewed by Physician? (if this service was performed by NPP) Yes Patient seen and examined by me. Agree with note by CREDIT ADJUSTER SEE ADDITIONAL ORDERS PER CHART DISCUSSED WITH NURSING STAFF ALONSO GREEN Dec 24, 2024 06:28
[2024-12-24] MEDS ORDERED: GLUCAGON 1MG KIT 1 MG ML IM PRN (07:00)
[2024-12-24] MEDS ORDERED: PoTASSium chl 10% ELIXIR 20MEQ 20 MEQ/15 ML UDCUP PO PRN (07:00)
[2024-12-24] MEDS ORDERED: DEXTROSE 50%-WATER 50 ML DISP.SYRIN IV PRN (07:00)
[2024-12-24] MEDS: CYANOCOBALAMIN (VITAMIN B-12) 1,000 MCG TABLET PO SCH (08:03)
[2024-12-24] MEDS: NICOTINE 21 MG/ 24 HR PATCH TD SCH (08:04)
[2024-12-24] MEDS: ERGOCALCIFEROL (VITAMIN D2) 50,000 UNIT CAPSULE PO SCH (08:16)
[2024-12-24] MEDS: MULTIVITS MIN PO SCH (09:00)
[2024-12-24] MEDS: VILANTEROL IH SCH (09:00)
[2024-12-24] MEDS: LUT PO SCH (09:00)
[2024-12-24] MEDS: [UNRECOGNIZED DRUG - OTHER] PO SCH (09:00)
[2024-12-24] MEDS: LYCOPENE PO SCH (09:00)
[2024-12-24] MEDS: FISH OIL PO SCH (09:00)
[2024-12-24] MEDS: Linaclotide (Linzess) 1 CAP) PO SCH (09:00)
[2024-12-24] MEDS: EPA PO SCH (09:00)
[2024-12-24] MEDS: DHA PO SCH (09:00)
[2024-12-24] MEDS: FLUTICASONE IH SCH (09:00)
[2024-12-24] MEDS: VITAMIN E MIXED PO SCH (09:00)
[2024-12-24 12:48] LABS: ABG BASE EXCESS 1.5 mmol/L (-2.0-3.0); ABG HCO3 25.8 mmol/L (21.0-28.0); ABG OXYGEN SATURATION 91.5 % (94.0-98.0); ABG PCO2 40 mmHg (32-45); ABG PH 7.431 (7.350-7.450); DEVICE COMMENT LR RN; PO2, ARTERIAL BG 59.4 mmHg (83.0-108.0); TEMPERATURE, CELSIUS BG 37.0 CELSIUS (35.5-37.0); VENT MODE, BG OXY (ROOM AIR)
--- NOTE | 2024-12-24 14:04 | HMCIMG ---
EXAM: CR Chest, 1 View. CLINICAL HISTORY: copd COMPARISON: None provided. FINDINGS: LUNGS: Mild bibasilar airspace disease may reflect pneumonia (right greater than left). Suspected small right pleural effusion. PLEURAL SPACES: No pleural effusion or pneumothorax. MEDIASTINUM: The cardiomediastinal silhouette is within normal limits. BONES: No acute osseous abnormality. IMPRESSION: 1. Mild bibasilar airspace disease, right greater than left, may reflect pneumonia. Suspected small right pleural effusion. /[place]
--- NOTE | 2024-12-24 14:58 | PN ---
This is a 69-year-old female POD # one from open ventral hernia repair with mesh. Patient reports she is not passing any gas. She is having a lot of epigastric pain which makes it difficult for her to breathe. Patient is on O2 at home. Continues on nasal cannula O2. Abdomen is soft, nondistended, appropriately tender to palpation. Incisions are clean dry and intact. We will adjust patient's pain medications to see if that helps with the breathing. Hospitalist this is assisting managing patient's medical problems. PT and OT to see the patient. Surgery will follow up. Vitals/Labs Vital Signs Date Time Temp Pulse Resp B/P (MAP) Pulse Ox O2 Delivery O2 Flow Rate FiO2 12/24/24 12:00 98.4 90 20 142/69 91 Room Air 12/24/24 11:27 5.0 40 Laboratory Tests 12/24/24 04:49 RAH SMITH DO Dec 24, 2024 14:58
--- NOTE | 2024-12-24 15:18 | NUR ---
INITIAL/DCP HOME Met w pt w pt this afternoon to discuss dcp. Pt mentions that she lives w her spouse and children. She is independent w ambulation and ADLs. She is able to drive where needed. Pt owns a rollator, bsc, sh chair and O2 supplied by [employer]. Her preferred pharmacy is [facility]. Pt does not report any insecurities with food, senior living, and/or utilities. Discharge goal is to return home. Addendum: 12/24/24 at 1520 by MIGDALIA DONG CM Amended: Links added.
[2024-12-25] VITALS (14 sets, daily range): BP systolic 141–162; BP diastolic 82–95; PULSE 74–107; RESP 18–22; TEMP 97.4–98.4; O2SAT 90–98
[2024-12-25 05:18] LABS: NUCLEATED RED BLOOD CELLS 0.0 % (0.0-0.19); PLATELET COUNT (AUTO) 241.0 K/uL (130-400); RED BLOOD CELL COUNT(AUTO) 5.31 MIL/uL (4.00-5.50); RED CELL DISTRIBUTION WIDTH 17.5 % (11.0-15.5); WHITE BLOOD COUNT (AUTO) 12.3 K/uL (4.8-10.8)
[2024-12-25 05:41] LABS: ASPARTATE AMINOTRANSFERASE 16.0 U/L (10-37); CREATININE 0.6 mg/dL (0.5-1.0); GLOMERULAR FILTR. RATE CALC 96.0 mL/min (>90); GLUCOSE,RANDOM 116.0 mg/dL (70-105); SODIUM SERUM 139.0 mmol/L (136-145); TOTAL PROTEIN, SERUM 6.3 g/dL (6.0-8.3); UREA NITROGEN, BLOOD 11.0 mg/dL (7-18)
--- NOTE | 2024-12-25 10:12 | PN ---
[facility] PROGRESS NOTE Date of Service: Dec 25, 2024 Time of Service: 10:09 SUBJECTIVE: 12/25 patient is seen and examined at bedside, case discussed with the RN, no acute events overnight, during my visit patient alert oriented x3, on supplemental oxygen via nasal cannula at 3 L, saturating 98%. Patient has a history of COPD, on chronic home oxygen at 3 L at home. Patient is status post laparoscopic lysis of adhesions, converted to open ventral hernia repair with mesh of hernia incarcerated 12/23/2024, tolerated the procedure well. Continue current pain medication with adjustment as needed. Continue supplemental oxygen via nasal cannula. Chest x-ray showing mild bibasilar airspace disease right greater than left, may reflect pneumoniae, suspect small right pleural effusion. Start the patient on Zosyn IV, we will request Pulmonary consult, monitor WBC in a.m.. Lovenox 40 mg subcutaneously daily, follow CBC transfuse as needed. Continue DuoNeb. Discussed with the patient, in agreement. REVIEW OF SYSTEMS CONSTITUTIONAL: Denies fevers, chills, or night sweats. No unintentional weight loss reported. NEUROLOGICAL: Denies headache, amaurosis fugax, motor weakness, sensory deficit, vertigo/spinning sensation, gait abnormalities, or tremors. ENT: No hearing loss, otalgia, otorrhea, rhinitis, rhinorrhea, hoarseness, or sore throat. CARDIOVASCULAR: Denies any exertional angina, dyspnea on exertion, orthopnea, paroxysmal nocturnal dyspnea, palpitations, life-threatening arrhythmias, claudication. PULMONARY: Denies any shortness of breath, cough, phlegm/sputum, hemoptysis, p leuritic chest pain. SLEEP: Denies morning headaches, daytime somnolence or napping. Denies difficulty falling asleep, staying asleep, waking from sleep. Denies knowledge of snoring. GASTROINTESTINAL: complain of mild abdominal pain Denies any type of dysphagia to either liquids or solids. Denies nausea, vomiting, pyrosis, early satiety,diarrhea, constipation, or changes in stool consistency or caliber. Denies coffee-ground emesis, hematemesis, hematochezia, or melanotic stools. GENITOURINARY: Denies frequency, urgency, nocturia, hematuria or incontinence (Storage/Irritative symptoms.) Low urinary stream, straining to void, urinary intermittency or hesitancy, splitting of the voiding stream, terminal dribbling. ENDOCRINOLOGIC: Denies polyuria, polydipsia, polyphagia or heat/cold intolerances. HEMATOLOGIC: Denies thrombophilia/previous clots, or coagulopathy/bleeding diso rders. ONCOLOGIC: Denies personal history of malignancy. DERMATOLOGIC: Denies rashes or pruritus. PSYCHIATRIC: Denies any suicidal or homicidal ideation. Denies hallucinations. PHYSICAL EXAM GENERAL APPEARANCE: The patient is awake, alert, and oriented, in no acute cardiopulmonary distress. NEUROLOGICAL: Cranial nerves II-XII grossly intact. Motor is 5/5 in bilateral upper and lower extremities proximal to distal. No sensory deficits. HEENT: Face is symmetric. Pupils are equal and reactive. Extraocular movements are intact. NECK: Supple. No JVD. No thyromegaly. No submental, submandibular, pre- /postauricular, occipital or supraclavicular lymphadenopathy. CHEST: Normal chest expansion. No Telemetry. LUNGS: Absence of any rales, rhonchi or any wheezing. CARDIOVASCULAR: Regular. S1 and S2 normal. No appreciable rubs, murmurs or gallops. ABDOMEN: + MATEO Soft and nondistended. There is no rebound, voluntary guarding, or rigidity. : Deferred. No Palomo. EXTREMITIES: Non-edematous and not cyanotic. No clubbing. Good capillary refill. SKIN: No skin breakdown. Vital Signs (last 8hr) Date Time Temp Pulse Resp B/P (MAP) Pulse Ox O2 Delivery O2 Flow Rate FiO2 12/25/24 08:00 97.5 107 20 158/91 90 Nasal Cannula 3.0 12/25/24 06:57 100 22 N/Cannula Oximizer Hi LPM 5.0 40 12/25/24 06:56 100 20 12/25/24 04:00 98.2 98 20 141/82 92 Nasal Cannula 3.0 LABS: Laboratory: Test 12/25/24 05:20 12/25/24 04:58 12/24/24 12:46 12/24/24 04:49 Range/Units Whole Blood Glucose 123 H 70-110 MG/DL White Blood Count 12.3 H 4.8-10.8 K/uL Red Blood Count 5.31 4.00-5.50 MIL/uL Hemoglobin 14.8 12.0-16.0 g/dL Hematocrit 46.1 36-48 % Mean Corpuscular Volume 86.8 79-99 fL Mean Corpuscular Hemoglobin 27.9 27.0-33.0 pg Mean Corpuscular Hemoglobin Concent 32.1 32.0-36.0 g/dL Red Cell Distribution Width 17.5 H 11.0-15.5 % Platelet Count 241 130-400 K/uL Mean Platelet Volume 8.9 7.5-10.5 fL Nucleated Red Blood Cells 0.0 0.0-0.19 % Sodium Level 139 136-145 mmol/L Potassium Level 4.0 3.5-5.1 mmol/L Chloride Level 102 101-111 mmol/L Carbon Dioxide Level 31 21-32 mmol/L Blood Urea Nitrogen 11 7-18 mg/dL Creatinine 0.6 0.5-1.0 mg/dL Glomerular Filtration Rate Calc 96 >90 mL/min Random Glucose 116 H 70-105 mg/dL Total Calcium 9.0 8.5-10.1 mg/dL Magnesium Level 1.90 1.80-2.40 mg/dL Total Bilirubin 0.5 0.2-1.0 mg/dL Aspartate Amino Transf (AST/SGOT) 16 10-37 U/L Alanine Aminotransferase (ALT/SGPT) 20 12-78 U/L Alkaline Phosphatase 71 50-136 U/L Total Protein 6.3 6.0-8.3 g/dL Albumin 2.9 L 3.5-5.0 g/dL Blood Gas Specimen Type Arterial Arterial Blood pH 7.431 7.350-7.450 Arterial Blood Partial Pressure CO2 40 32-45 mmHg Arterial Blood Partial Pressure O2 59.4 L 83.0-108.0 mmHg Arterial Blood HCO3 25.8 21.0-28.0 mmol/L Arterial Blood Oxygen Saturation 91.5 L 94.0-98.0 % Arterial Blood Base Excess 1.5 -2.0-3.0 mmol/L Blood Gas Temperature 37.0 35.5-37.0 CELSIUS Blood Gas Flow-by 5.00 0.00-15.00 L/min Blood Gas Vent Mode OXY ROOM AIR FiO2 40.0 % Blood Gas Specimen Comment LR RN Immature Granulocyte % (Auto) 0.4 0-1 % Neutrophils (%) (Auto) 77.3 H 40.0-77.0 % Lymphocytes (%) (Auto) 13.7 L 21.0-51.0 % Monocytes (%) (Auto) 8.3 3.0-13.0 % Eosinophils (%) (Auto) 0.1 0.0-8.0 % Basophils (%) (Auto) 0.2 0.0-5.0 % Neutrophils # (Auto) 13.0 H 1.8-7.7 K/uL Lymphocytes # (Auto) 2.3 1.0-4.8 K/uL Monocytes # (Auto) 1.4 H 0.1-1.0 K/uL Eosinophils # (Auto) 0.02 0.00-0.70 K/uL Basophils # (Auto) 0.03 0.00-0.20 K/uL Absolute Immature Granulocyte (auto 0.07 0-1 K/uL Current Medications Medications (Trade) Dose Ordered Sig/Liz Route PRN Reason Start Time Stop Time Status Last Admin Dose Admin Acetaminophen/ Codeine Phosphate (TYLenol-coDEINE TAB) 1 tab Q6H PRN PO MODERATE PAIN (4-6) 12/23/24 15:00 12/23/24 14:54 DC Albuterol (DUOneb) 1 UDVIAL Q6H PRN IH SHORTNESS OF BREATH 12/23/24 13:00 01/22/25 12:59 Albuterol (DUOneb) 1 UDVIAL [id number] IH 12/23/24 18:00 01/22/25 17:59 12/25/24 06:55 1 UDVIAL Albuterol (DUOneb) 1 UDVIAL [id number] IH 12/24/24 13:00 12/24/24 12:52 DC Atorvastatin Calcium (LIPItor 10MG) 10 mg HS PO 12/24/24 21:00 01/23/25 20:59 12/24/24 20:09 10 MG Cyclobenzaprine HCl (Cyclobenzaprine HCl) 10 mg TID PO 12/23/24 21:00 01/22/25 20:59 12/25/24 09:36 10 MG Dextrose (D50w) 50 ml AD PRN IV HYPOGLYCEMIA PROTOCOL 12/24/24 07:00 01/23/25 06:59 Ergocalciferol (Drisdol) 50,000 unit QWEEK PO 12/24/24 09:00 01/23/25 08:59 12/25/24 09:36 50,000 UNIT Glucagon (Glucagon 1mg Kit) 1 mg AD PRN IM HYPOGLYCEMIA PROTOCOL 12/24/24 07:00 01/23/25 06:59 Home Med (Home Medication) DAILY IH 12/24/24 09:00 01/23/25 08:59 12/25/24 09:35 1 EACH Home Med (Home Medication) DAILY PO 12/24/24 09:00 01/23/25 08:59 12/25/24 09:35 1 EACH Home Med (Home Medication) DAILY PO 12/24/24 09:00 01/23/25 08:59 12/25/24 09:35 1 EACH Home Med (Home Medication) DAILY PO 12/24/24 09:00 01/23/25 08:59 12/25/24 09:35 1 EACH Home Med (Home Medication) DAILY PO 12/24/24 09:00 01/23/25 08:59 Hydralazine HCl (APRESOLine 20MG INJ) 5 mg Q6H PRN IV ADMINISTER FOR SBP > 160 12/25/24 08:30 01/24/25 08:29 Hydromorphone HCl (DiLAUDid 0.5MG INJ) 0.5 mg Q4H PRN IVP SEVERE PAIN (7-10) 12/24/24 14:00 12/29/24 13:59 12/25/24 09:33 0.5 MG Insulin Human Regular (humuLIN R 100 UNIT/ML 3ML) INSULIN SLIDING SCAL... ACHS SQ 12/24/24 07:30 01/23/25 07:29 Ketorolac Tromethamine (toRADol) 15 mg Q6H PRN IV MODERATE PAIN (4-6) IF NPO 12/23/24 15:00 12/28/24 14:59 12/24/24 18:14 15 MG Losartan Potassium (CozAAR 100MG TAB) 100 mg DAILY PO 12/24/24 09:00 01/23/25 08:59 12/25/24 09:36 100 MG Magnesium Sulfate 50 ml @ 0 mls/hr PROTOCOL PRN IV OTHER [SEE ORDER COMMENTS] 12/24/24 07:00 01/23/25 06:59 Morphine Sulfate (morPHINE 4MG SYG) 4 mg Q4H PRN IVP SEVERE PAIN (7-10) 12/23/24 15:00 12/24/24 13:46 DC 12/24/24 08:04 4 MG Nicotine (Nicoderm) 21 mg DAILY TD 12/24/24 09:00 01/23/25 08:59 Pantoprazole Sodium (PROTonix 40MG TAB) 40 mg DAILY PO 12/24/24 09:00 01/23/25 08:59 12/25/24 09:36 40 MG Potassium Chloride 100 ml @ 100 mls/hr AD PRN IV POTASSIUM PROTOCOL 12/24/24 07:00 01/23/25 06:59 Potassium Chloride (K-Dur/Klor-Con 20meq) 20 meq AD PRN PO POTASSIUM PROTOCOL 12/24/24 07:00 01/23/25 06:59 Potassium Chloride (KCl 10% Elixir 20meq/15ml) 20 meq AD PRN PO POTASSIUM PROTOCOL 12/24/24 07:00 01/23/25 06:59 Tramadol HCl (UltRAM) 50 mg Q6H PRN PO MODERATE PAIN (4-6) 12/24/24 01:00 12/29/24 00:59 12/24/24 13:02 50 MG Vitamin B Complex (Vitamin B-12) 500 mcg DAILY PO 12/24/24 09:00 01/23/25 08:59 12/25/24 09:36 500 MCG DIAGNOSTICS / RADIOLOGY: [ ] ASSESSMENT: Ventral hernia S/P Laparoscopic lysis of adhesions converted to open ventral hernia repair with mesh incarcerated POA Diabetes type 2 POA Hypertension POA Hyperlipidemia POA COPD on home O2 as needed POA Morbid obesity POA Nicotine dependence POA Possible developing pneumoniae PLAN: patient is seen and examined at bedside, case discussed with the RN, no acute events overnight, during my visit patient alert oriented x3, on supplemental oxygen via nasal cannula at 3 L, saturating 98%. Patient has a history of COPD, on chronic home oxygen at 3 L at home. Patient is status post laparoscopic lysis of adhesions, converted to open ventral hernia repair with mesh of hernia incarcerated 12/23/2024, tolerated the procedure well. Continue current pain medication with adjustment as needed. Continue supplemental oxygen via nasal cannula. Chest x-ray showing mild bibasilar airspace disease right greater than left, may reflect pneumoniae, suspect small right pleural effusion. Start the patient on Zosyn IV, we will request Pulmonary consult, monitor WBC in a.m.. Lovenox 40 mg subcutaneously daily, follow CBC transfuse as needed. Continue DuoNeb. Discussed with the patient, in agreement. NEURO: Minimize central acting medications as possible. Fall Precautions. Well lighted room through the day and minimize interruptions through the night to prevent acute delirium. PULMONARY: Supplemental 02 as needed BiPAP as necessary, for respiratory distress Titrate Fio2 to keep Spo2 > or = 90% DuoNebs and CPT as needed IS hourly while awake for pulmonary hygiene prn Out of bed to chair as tolerated Maintain aspiration precautions at all times CARDIOVASCULAR: Follow hemodynamics. Vital signs per facility protocol GI & NUTRITION: Continue nutritional support Aspirations precautions Prokinetic agents and laxatives as needed KIDNEYS & ELECTROLYTES: Strict monitoring of intake and output Daily weights Avoid nephrotoxic agents Monitor electrolytes and replace as needed Goal urine output of 30mL/hr or 0.5mL/kg/hr Medications to be dosed according to renal function. Avoid contrast if possible ENDOCRINE: Maintain blood glucose between 100-180 at all times. Insulin sliding scale for blood glucose management Hypoglycemia and hyperglycemia protocol in place INFECTIOUS DISEASE: Trend temperature, WBC and procalcitonin level Follow cultures, deescalate antibiotics as soon as possible. Panculture if new onset fever HEMATOLOGY & COAGULATION: Monitor H&H. Keep Hgb > 7 Transfuse 1 unit of PRBC for Hgb < 7 Transfuse 1 pack of platelets of platelets < 20, 000 Watch for any signs and symptoms of bleeding SKIN: Pressure ulcer prevention per facility protocol Specialty mattress as needed ORTHO/REHAB Continue PT/OT PRN: MEDICATIONS Tylenol 650 mg po every 4 hrs for fever zofran 4 mg IV every 6 hrs for n/v Hydralazine 5 mg IV every 4 hrs systolic pressure > 160 bowel regiment: lactulose 20 gm PO BID PRN constipation Supportive measures: Continue GI and DVT prophylaxis All questions answered time spent: > 35 min JORDYN URBINA MD Dec 25, 2024 10:12
[2024-12-25] MEDS: ZOSYN 3.375GM +NS 50ML IV SCH (12:00)
[2024-12-25] MEDS: ENOXAPARIN SODIUM 40 MG/0.4 ML SYRINGE SQ SCH (12:01)
--- NOTE | 2024-12-25 16:45 | CONS ---
[facility] CONSULTATION NOTE Date Patient Seen: Dec 25, 2024 Time of Visit: 16:45 Supervising Physician: Dr. Sanchez Draper Reason for Consultation: Acute hypoxic respiratory failure, right lower lobe atelectasis verse right lower lobe pneumonia Primary Care Physician: [ ] Outpatient Specialists: [ ] Inpatient Consults: [ ] PROBLEM LIST: 1. Acute hypoxic respiratory failure 2. Right lower lobe atelectasis verse pneumonia 3. COPD on home O2 4. Tobacco abuse 5. Morbid obesity 6. Obstructive sleep apnea undiagnosed & untreated -STOP-BANG SCORE 5 Point, High Risk of KEN RECOMMENDATIONS: CT chest without contrast ABG A.m. labs CPAP, settings: 8 cm 30% FiO2. Lovenox adjusted 30 mg subQ q.12 hours for morbid obesity increasing risk pulmonary emboli GI prophylaxis Smoking sensation, Nicoderm 21 mcg patch daily MRI cervical spine with contrast Consult Neurosurgery HPI: Carline Ford is a 69-year-old lady status post day two ventral hernia repair requested pulmonary consult by primary team because of acute hypoxic respiratory failure chest x-ray indicating right lower lobe atelectasis verse pneumonia. Diagnosed on admission acute complicated cystitis. Vital signs: Temperature 97.5, pulse 99, respirations 20, blood pressure 150/90, oxygen saturation 95% 5 L high-flow nasal cannula. Lab results: WBC 10.6, previous day 12.3, trending down, hemoglobin 13.8, hematocrit 41 0.8%, platelets 258, sodium 138, potassium 3.9, BUN 11, creatinine 0.5, and magnesium 1.8. Chest x-ray reviewed results atelectasis right lower lobe, possible pneumonia Patient was seen and assess in the patient's room awake, alert, and oriented on high flow nasal cannula. Lung sounds clear over diminished with rales and rhonchi present. No stridor present. Patient requiring supplemental oxygen. Patient reports home O2 his previous history of smoking cigarettes 20+ years. Bilateral lower extremity edema. Abdomen round soft distended with bowel sounds present in all four quadrants. CT abdomen/pelvis without contrast results: There is a soft tissue mass within the left side of T12 vertebrae body resulting in moderate bony erosive changes. The mass extends into the spinal canal and posterior elements as well within the left paraspinal soft tissue. Impressions: Moderate right lung consolidation and small left lower lung consolidation concerning for pneumonia verse other neoplastic process not excluded. Small right-sided pleural effusion mediastinal lymphadenopathy. Few small abnormal airspace opacities in the right upper lung. Small consolidation or atelectasis in the right middle lobe. New soft tissue mass and T12 vertebrae body with moderate erosive change pathologic fracture spinal canal extension and left paraspinal involvement metastasize. Consider MRI thoracic spine with and without IV contrast for further evaluation. This report was dictated by Dr. Mari Baer on 12/25/2024 at 1915. PAST MEDICAL HX: see above PAST SURGICAL HX: noncontributory SOCIAL HISTORY: No tobacco, ETOH, or illicit drug use Coded Allergies: codeine (Unverified Allergy, Unknown, 12/19/24) REVIEW OF SYSTEMS: 12 point ROS reviewed with patient. Pertinent positives mentioned above. Otherwise negative. PHYSICAL EXAM: GENERAL: alert, weak, awake oriented x 3 HEENT: EOMI, Sclera non icteric, moist mucosa NECK: Supple, no JVD, trachea midline LUNGS: Clear breath sounds bilaterally. No wheezes HEART: Regular rate and rhythm. Normal S1 and S2, without murmurs ABD: Abdomen soft, nontender. Bowel sounds present EXT: No clubbing cyanosis or edema NEURO: Alert and oriented to person, follows commands Vital Signs (last 8hr) Date Time Temp Pulse Resp B/P (MAP) Pulse Ox O2 Delivery O2 Flow Rate FiO2 12/25/24 16:30 99 162/95 12/25/24 16:00 97.3 99 20 162/95 92 Room Air 12/25/24 12:00 97.5 74 20 150/90 95 Nasal Cannula 5.0 12/25/24 11:41 100 22 N/Cannula Oximizer Hi LPM 4.0 36 12/25/24 11:40 100 20 LABS: Hematology Labs: Test 12/25/24 04:58 12/24/24 04:49 Range/Units White Blood Count 12.3 H 4.8-10.8 K/uL Red Blood Count 5.31 4.00-5.50 MIL/uL Hemoglobin 14.8 12.0-16.0 g/dL Hematocrit 46.1 36-48 % Mean Corpuscular Volume 86.8 79-99 fL Mean Corpuscular Hemoglobin 27.9 27.0-33.0 pg Mean Corpuscular Hemoglobin Concent 32.1 32.0-36.0 g/dL Red Cell Distribution Width 17.5 H 11.0-15.5 % Platelet Count 241 130-400 K/uL Mean Platelet Volume 8.9 7.5-10.5 fL Nucleated Red Blood Cells 0.0 0.0-0.19 % Immature Granulocyte % (Auto) 0.4 0-1 % Neutrophils (%) (Auto) 77.3 H 40.0-77.0 % Lymphocytes (%) (Auto) 13.7 L 21.0-51.0 % Monocytes (%) (Auto) 8.3 3.0-13.0 % Eosinophils (%) (Auto) 0.1 0.0-8.0 % Basophils (%) (Auto) 0.2 0.0-5.0 % Neutrophils # (Auto) 13.0 H 1.8-7.7 K/uL Lymphocytes # (Auto) 2.3 1.0-4.8 K/uL Monocytes # (Auto) 1.4 H 0.1-1.0 K/uL Eosinophils # (Auto) 0.02 0.00-0.70 K/uL Basophils # (Auto) 0.03 0.00-0.20 K/uL Absolute Immature Granulocyte (auto 0.07 0-1 K/uL Chemistry Labs: Test 12/25/24 15:53 12/25/24 04:58 Range/Units Whole Blood Glucose 127 H 70-110 MG/DL Sodium Level 139 136-145 mmol/L Potassium Level 4.0 3.5-5.1 mmol/L Chloride Level 102 101-111 mmol/L Carbon Dioxide Level 31 21-32 mmol/L Blood Urea Nitrogen 11 7-18 mg/dL Creatinine 0.6 0.5-1.0 mg/dL Glomerular Filtration Rate Calc 96 >90 mL/min Random Glucose 116 H 70-105 mg/dL Total Calcium 9.0 8.5-10.1 mg/dL Magnesium Level 1.90 1.80-2.40 mg/dL Total Bilirubin 0.5 0.2-1.0 mg/dL Aspartate Amino Transf (AST/SGOT) 16 10-37 U/L Alanine Aminotransferase (ALT/SGPT) 20 12-78 U/L Alkaline Phosphatase 71 50-136 U/L Total Protein 6.3 6.0-8.3 g/dL Albumin 2.9 L 3.5-5.0 g/dL DIAGNOSTICS / RADIOLOGY RESULTS: [ ] PLAN NEURO: Minimize central acting medications as possible. Maintain fall precautions, adequate lighting during the day PULMONARY: Supplemental 02 as needed. Maintain aspiration precautions at all times CARDIOVASCULAR: Follow hemodynamics. Vital signs per facility protocol GI & NUTRITION: Continue with nutritional support. Continue stool softeners and laxatives as needed. KIDNEYS & ELECTROLYTES: Strict monitoring of intake, output and overall fluid balance. Avoid nephrotoxic medications to the extent possible. Medications to be dosed according to renal function. Monitor electrolytes and replace as needed ENDOCRINE: Maintain blood glucose between 100-180 at all times. Hypoglycemia protocol in place INFECTIOUS DISEASE: Trend temperature, WBC and procalcitonin level Follow cultures, deescalate antibiotics as soon as possible. Panculture if new onset fever ONCOLOGY/HEMATOLOGY/COAGULATION: Monitor for s/s of bleeding Monitor hemoglobin, coagulation studies as needed SKIN: Pressure ulcer prevention per facility protocol Specialty mattress ORTHO/REHAB: Continue PT/OT Prophylaxis: Continue GI and DVT prophylaxis Code Status: Full Resuscitation Disposition: TBD Other: Total patient care time exceeds 35 minutes excluding all procedures. Reviewed and discussed with supervising physician Dr. Sanchez Draper, assessment findings, laboratory results, vital signs, diagnostic tests including chest x-ray, health history all his information was discussed in the treatment plan was formulated. GORGE LOWE NP Dec 25, 2024 16:45
--- NOTE | 2024-12-25 18:06 | HMCIMG ---
EXAM: CT Chest Without IV contrast. CLINICAL HISTORY: Clinically workup atelectasis TECHNIQUE: Axial computed tomography images of the chest without intravenous contrast. COMPARISON: None provided. CT abdomen and pelvis 10/12/2024 FINDINGS: LUNGS: Moderate area of consolidation right lower lung and small area of consolidation left lower lung. Small right-sided pleural effusion. There are a few small abnormal airspace opacities within the right upper lung. There is a small area of consolidation versus atelectasis medial segment of the right middle lobe. PLEURAL SPACES: No evidence of pneumothorax. No pleural effusion. HEART: No cardiomegaly. No significant pericardial effusion. LYMPH NODES: Mediastinal lymphadenopathy anterior to the trachea UPPER ABDOMEN: The upper abdominal solid organs are unremarkable. BONES: There is a soft tissue mass within the left side of the T12 vertebral body resulting in moderate bony erosive changes. The mass extends into the spinal canal and posterior elements as well as within the left paraspinal soft tissues IMPRESSION: 1. Moderate right lower lung consolidation and small left lower lung consolidation, concerning for pneumonia versus other/neoplastic process not excluded.. Recommend repeat CT scan with IV contrast 2. Small right-sided pleural effusion. Mediastinal lymphadenopathy. 3. Few small abnormal airspace opacities in the right upper lung. 4. Small consolidation or atelectasis in the right middle lobe. 5. New soft tissue mass in T12 vertebral body with moderate erosive changes/pathologic fracture, spinal canal extension, and left paraspinal involvement/bony metastases. Consider MRI thoracic spine with and without IV contrast for further evaluation. /[place]
--- NOTE | 2024-12-25 19:39 | PN ---
This is a 69-year-old female POD # two from open ventral hernia repair with mesh. Patient reports that her pain is better controlled today. She has ambulated a little bit. She is passing gas. Tolerating diet. Drains with serosanguineous output that is decreasing. Abdomen is soft, nondistended, nontender, no rebound, no guarding. She is pending a CT scan of the chest for workup of possible pneumonia with small pleural effusion. Continue present management. Encourage ambulation and incentive spirometry. Continue antibiotics. Vitals/Labs Vital Signs Date Time Temp Pulse Resp B/P (MAP) Pulse Ox O2 Delivery O2 Flow Rate FiO2 12/25/24 19:32 98 20 12/25/24 19:30 N/Cannula Oximizer Hi LPM 4.0 36 12/25/24 16:30 162/95 12/25/24 16:00 97.3 92 Laboratory Tests 12/25/24 04:58 RAH SMITH DO Dec 25, 2024 19:39
[2024-12-25] MEDS: ENOXAPARIN SODIUM 30 MG/0.3 ML SQ SCH (21:00)
[2024-12-26] VITALS (13 sets, daily range): BP systolic 130–161; BP diastolic 70–97; PULSE 86–100; RESP 18–28; TEMP 98–99; O2SAT 93–97
[2024-12-26 05:14] LABS: NUCLEATED RED BLOOD CELLS 0.0 % (0.0-0.19); PLATELET COUNT (AUTO) 258.0 K/uL (130-400); RED BLOOD CELL COUNT(AUTO) 4.89 MIL/uL (4.00-5.50); RED CELL DISTRIBUTION WIDTH 17.2 % (11.0-15.5); WHITE BLOOD COUNT (AUTO) 10.6 K/uL (4.8-10.8)
[2024-12-26 05:44] LABS: ASPARTATE AMINOTRANSFERASE 16.0 U/L (10-37); CREATININE 0.5 mg/dL (0.5-1.0); GLOMERULAR FILTR. RATE CALC 100.0 mL/min (>90); GLUCOSE,RANDOM 110.0 mg/dL (70-105); SODIUM SERUM 139.0 mmol/L (136-145); TOTAL PROTEIN, SERUM 5.9 g/dL (6.0-8.3); UREA NITROGEN, BLOOD 11.0 mg/dL (7-18)
[2024-12-26 07:44] LABS: ABG BASE EXCESS 3.7 mmol/L (-2.0-3.0); ABG HCO3 28.7 mmol/L (21.0-28.0); ABG OXYGEN SATURATION 91.0 % (94.0-98.0); ABG PCO2 44 mmHg (32-45); ABG PH 7.428 (7.350-7.450); DEVICE COMMENT RR, MARY,LVN; PO2, ARTERIAL BG 58.8 mmHg (83.0-108.0); TEMPERATURE, CELSIUS BG 37.0 CELSIUS (35.5-37.0); VENT MODE, BG NC 4L (ROOM AIR)
[2024-12-26] MEDS: MAGNESIUM 2GM PREMIX 50ML 50 ML IV PRN (08:51)
--- NOTE | 2024-12-26 11:39 | PN ---
[facility] PROGRESS NOTE Date Patient Seen: Dec 26, 2024 Time of Visit: 11:39 Supervising Physician: Dr. Booker Ace Primary Care Physician: [ ] Outpatient Specialists: [ ] Inpatient Consults: [ ] PROBLEM LIST: 1. Acute hypoxic respiratory failure 2. Right lower lobe atelectasis verse pneumonia 3. COPD on home O2 4. Tobacco abuse 5. Morbid obesity 6. Obstructive sleep apnea undiagnosed & untreated -STOP-BANG SCORE 5 Point, High Risk of KEN 7. 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 RECOMMENDATIONS: CT chest without contrast results retrieval body T12 erosive changes/pathologic fracture and paraspinal involvement, metastasis. -patient is aware of this, has begun the clinical workup with primary care provider as an outpatient. MRI cervical spine with contrast Consult Neurosurgery CPAP, settings: 8 cm 30% FiO2. Lovenox adjusted 30 mg subQ q.12 hours for morbid obesity increasing risk pulmonary emboli GI prophylaxis Protonix 40 mg p.o. daily Continue with antibiotics Zosyn 3.375 g IV q.8 hours. Smoking sensation, Nicoderm 21 mcg patch daily 50 minutes critical care time based on patient's criteria involving pulmonary, spinal, cardiovascular systems. Reviewed and discussed with supervising physician, Dr. Booker Ace, assessment findings, diagnostic tests, CT chest without contrast, and laboratory results with vital signs for formulating recommendations. INTERVAL HISTORY: 12/26-patient assess and examined while resting on top of her bed with the head of the bed elevated, with spouse present. Patient is awake alert and oriented as well as in no acute distress. Reviewed and discussed updates from patient's chart with bedside nurse. Reviewed and discussed with patient and spouse findings from CT chest without contrast. Patient reports knowing vertebral T12 abnormality, has begun clinical workup with PCP as an outpatient. Patient at this time is not interested in spinal surgery. Patient reports after hernia surgery chest pain is continuous. Patient denies shortness of breath, fever, chills, nauseousness, diarrhea and constipation currently. VSS. Afebrile REVIEW OF SYSTEMS: 12 point ROS reviewed with patient. Pertinent positives mentioned above. Otherwise negative. PHYSICAL EXAM: GENERAL: alert, weak, awake oriented x 3 HEENT: EOMI, Sclera non icteric, moist mucosa NECK: Supple, no JVD, trachea midline LUNGS: Clear breath sounds bilaterally. No wheezes HEART: Regular rate and rhythm. Normal S1 and S2, without murmurs ABD: Abdomen soft, nontender. Bowel sounds present EXT: No clubbing cyanosis or edema NEURO: Alert and oriented to person, follows commands Vital Signs (last 8hr) Date Time Temp Pulse Resp B/P (MAP) Pulse Ox O2 Delivery O2 Flow Rate FiO2 12/26/24 11:24 97 Nasal Cannula* 3 N/A Aerosol Mask+ 12/26/24 07:50 94 22 N/Cannula Oximizer Hi LPM 4.0 36 12/26/24 07:34 99.0 98 18 159/97 97 Nasal Cannula 4.0 12/26/24 06:59 89 20 12/26/24 04:00 98.2 90 18 161/82 94 Nasal Cannula 4.0 LABS: Hematology Labs: Test 12/26/24 04:11 Range/Units White Blood Count 10.6 4.8-10.8 K/uL Red Blood Count 4.89 4.00-5.50 MIL/uL Hemoglobin 13.8 12.0-16.0 g/dL Hematocrit 41.8 36-48 % Mean Corpuscular Volume 85.5 79-99 fL Mean Corpuscular Hemoglobin 28.2 27.0-33.0 pg Mean Corpuscular Hemoglobin Concent 33.0 32.0-36.0 g/dL Red Cell Distribution Width 17.2 H 11.0-15.5 % Platelet Count 258 130-400 K/uL Mean Platelet Volume 9.0 7.5-10.5 fL Nucleated Red Blood Cells 0.0 0.0-0.19 % Chemistry Labs: Test 12/26/24 11:18 12/26/24 04:11 Range/Units Whole Blood Glucose 126 H 70-110 MG/DL Bedside Glucose Comment Notified Nurse Sodium Level 139 136-145 mmol/L Potassium Level 3.9 3.5-5.1 mmol/L Chloride Level 101 101-111 mmol/L Carbon Dioxide Level 29 21-32 mmol/L Blood Urea Nitrogen 11 7-18 mg/dL Creatinine 0.5 0.5-1.0 mg/dL Glomerular Filtration Rate Calc 100 >90 mL/min Random Glucose 110 H 70-105 mg/dL Total Calcium 8.6 8.5-10.1 mg/dL Magnesium Level 1.80 1.80-2.40 mg/dL Total Bilirubin 0.6 0.2-1.0 mg/dL Direct Bilirubin 0.2 0.0-0.3 mg/dL Aspartate Amino Transf (AST/SGOT) 16 10-37 U/L Alanine Aminotransferase (ALT/SGPT) 20 12-78 U/L Alkaline Phosphatase 60 50-136 U/L Total Protein 5.9 L 6.0-8.3 g/dL Albumin 2.6 L 3.5-5.0 g/dL DIAGNOSTICS / RADIOLOGY RESULTS: REASON: Clinically workup atelectasis ORDERING PHYSICIAN: GORGE LOWE NP PROCEDURE: CHEST WO - CT CHEST W/O CONTRAST ADDENDUM REPORT ADDENDUM: Results were shared by telephone at 07:14 pm on 12/25/24 and acknowledged by Charge Nurse Mr.Thomas Dean. /[facility] EXAM: CT Chest Without IV contrast. CLINICAL HISTORY: Clinically workup atelectasis TECHNIQUE: Axial computed tomography images of the chest without intravenous contrast. COMPARISON: None provided. CT abdomen and pelvis 10/12/2024 FINDINGS: LUNGS: Moderate area of consolidation right lower lung and small area of consolidation left lower lung. Small right-sided pleural effusion. There are a few small abnormal airspace opacities within the right upper lung. There is a small area of consolidation versus atelectasis medial segment of the right middle lobe. PLEURAL SPACES: No evidence of pneumothorax. No pleural effusion. HEART: No cardiomegaly. No significant pericardial effusion. LYMPH NODES: Mediastinal lymphadenopathy anterior to the trachea UPPER ABDOMEN: The upper abdominal solid organs are unremarkable. BONES: There is a soft tissue mass within the left side of the T12 vertebral body resulting in moderate bony erosive changes. The mass extends into the spinal canal and posterior elements as well as within the left paraspinal soft tissues IMPRESSION: 1. Moderate right lower lung consolidation and small left lower lung consolidation, concerning for pneumonia versus other/neoplastic process not excluded.. Recommend repeat CT scan with IV contrast 2. Small right-sided pleural effusion. Mediastinal lymphadenopathy. 3. Few small abnormal airspace opacities in the right upper lung. 4. Small consolidation or atelectasis in the right middle lobe. 5. New soft tissue mass in T12 vertebral body with moderate erosive changes/pathologic fracture, spinal canal extension, and left paraspinal involvement/bony metastases. Consider MRI thoracic spine with and without IV contrast for further evaluation. /[place] DICTATED BY: FADIA GALVAN MD DATE: 12/25/241914 ELECTRONICALLY SIGNED BY: DATE: EXAM: CT Chest Without IV contrast. CLINICAL HISTORY: Clinically workup atelectasis TECHNIQUE: Axial computed tomography images of the chest without intravenous contrast. COMPARISON: None provided. CT abdomen and pelvis 10/12/2024 FINDINGS: LUNGS: Moderate area of consolidation right lower lung and small area of consolidation left lower lung. Small right-sided pleural effusion. There are a few small abnormal airspace opacities within the right upper lung. There is a small area of consolidation versus atelectasis medial segment of the right middle lobe. PLEURAL SPACES: No evidence of pneumothorax. No pleural effusion. HEART: No cardiomegaly. No significant pericardial effusion. LYMPH NODES: Mediastinal lymphadenopathy anterior to the trachea UPPER ABDOMEN: The upper abdominal solid organs are unremarkable. BONES: There is a soft tissue mass within the left side of the T12 vertebral body resulting in moderate bony erosive changes. The mass extends into the spinal canal and posterior elements as well as within the left paraspinal soft tissues IMPRESSION: 1. Moderate right lower lung consolidation and small left lower lung consolidation, concerning for pneumonia versus other/neoplastic process not excluded.. Recommend repeat CT scan with IV contrast 2. Small right-sided pleural effusion. Mediastinal lymphadenopathy. 3. Few small abnormal airspace opacities in the right upper lung. 4. Small consolidation or atelectasis in the right middle lobe. 5. New soft tissue mass in T12 vertebral body with moderate erosive changes/pathologic fracture, spinal canal extension, and left paraspinal involvement/bony metastases. Consider MRI thoracic spine with and without IV contrast for further evaluation. /[place] DICTATED BY: FADIA GALVAN MD DATE: 12/25/241904 ELECTRONICALLY SIGNED BY: FADIA GALVAN MD DATE: 12/25/241904 PLAN NEURO: Minimize central acting medications as possible. Maintain fall precautions, adequate lighting during the day PULMONARY: Supplemental 02 as needed. Maintain aspiration precautions at all times CARDIOVASCULAR: Follow hemodynamics. Vital signs per facility protocol GI & NUTRITION: Continue with nutritional support. Continue stool softeners and laxatives as needed. KIDNEYS & ELECTROLYTES: Strict monitoring of intake, output and overall fluid balance. Avoid nephrotoxic medications to the extent possible. Medications to be dosed according to renal function. Monitor electrolytes and replace as needed ENDOCRINE: Maintain blood glucose between 100-180 at all times. Hypoglycemia protocol in place INFECTIOUS DISEASE: Trend temperature, WBC and procalcitonin level Follow cultures, deescalate antibiotics as soon as possible. Panculture if new onset fever ONCOLOGY/HEMATOLOGY/COAGULATION: Monitor for s/s of bleeding Monitor hemoglobin, coagulation studies as needed SKIN: Pressure ulcer prevention per facility protocol Specialty mattress ORTHO/REHAB: Continue PT/OT Prophylaxis: Continue GI and DVT prophylaxis Code Status: Full Resuscitation Disposition: TBD Other: Total patient care time exceeds 35 minutes excluding all procedures. Reviewed and discussed with supervising physician Dr. Sanchez Draper, assessme nt findings, laboratory results, vital signs, diagnostic tests including chest x-ray, health history all his information was discussed in the treatment plan was formulated. GORGE LOWE NP Dec 26, 2024 11:39
--- NOTE | 2024-12-26 12:57 | PN ---
Postop day three from robotic ventral hernia repair 20 x 15 cm in size Tolerating a soft GI got diet and passing gas. On oxygen. Not as short of breath today. Able to do her incentive spirometer better Incisions are clean dry and intact. MATEO drain serosanguineous Assessment and plan Work with physical therapy today. Start working on placement. Patient will not have any support at home might need placement SNF. We will wait on recommendations from physical therapy. [facility] to discuss patient's CT of the chest with her. Vitals/Labs Vital Signs Date Time Temp Pulse Resp B/P (MAP) Pulse Ox O2 Delivery O2 Flow Rate FiO2 12/26/24 12:00 98.2 100 18 156/81 93 Nasal Cannula 4.0 12/26/24 11:24 N/A Laboratory Tests 12/26/24 04:11 Medications Current Medications Cefazolin Sodium 1 gm STK-MED ONCE .ROUTE; Start 12/23/24 at 07:25; Stop 12/23/24 at 07:25; Status DC Cefazolin Sodium 2 gm STK-MED ONCE .ROUTE; Start 12/23/24 at 07:25; Stop 12/23/24 at 07:25; Status DC Lactated Ringer's 1,000 ml @ As Directed STK-MED ONCE IV; Start 12/23/24 at 07:25; Stop 12/23/24 at 07:26; Status DC Albuterol 1 UDVIAL ONCE ONCE IH Last administered on 12/23/24at 13:51; Start 12/23/24 at 09:00; Stop 12/23/24 at 09:01; Status DC Albuterol 1 UDVIAL ONCE ONCE IH; Start 12/23/24 at 09:00; Stop 12/23/24 at 09:01; Status DC Lidocaine HCl 100 mg STK-MED ONCE .ROUTE; Start 12/23/24 at 08:55; Stop 12/23/24 at 08:55; Status DC Propofol 200 mg STK-MED ONCE IV; Start 12/23/24 at 08:55; Stop 12/23/24 at 08:55; Status DC Midazolam HCl 2 mg STK-MED ONCE .ROUTE; Start 12/23/24 at 08:55; Stop 12/23/24 at 08:55; Status DC Rocuronium Wiley 50 mg STK-MED ONCE .ROUTE; Start 12/23/24 at 08:55; Stop 12/23/24 at 08:56; Status DC Fentanyl Citrate 100 mcg STK-MED ONCE .ROUTE; Start 12/23/24 at 08:57; Stop 12/23/24 at 08:57; Status DC Dexamethasone Sodium Phosphate 10 mg STK-MED ONCE .ROUTE; Start 12/23/24 at 09:16; Stop 12/23/24 at 09:16; Status DC Ondansetron HCl 4 mg STK-MED ONCE .ROUTE; Start 12/23/24 at 09:16; Stop 12/23/24 at 09:16; Status DC Rocuronium Wiley 50 mg STK-MED ONCE .ROUTE; Start 12/23/24 at 09:21; Stop 12/23/24 at 09:21; Status DC Cefazolin Sodium 3 gm STK-MED ONCE IVPB Last administered on 12/23/24at 09:12; Start 12/23/24 at 09:12; Stop 12/23/24 at 09:43; Status DC Bupivacaine HCl 10 mg STK-MED ONCE IJ Last administered on 12/23/24at 08:47; Start 12/23/24 at 08:47; Stop 12/23/24 at 09:43; Status DC Fentanyl Citrate 100 mcg STK-MED ONCE .ROUTE; Start 12/23/24 at 09:46; Stop 12/23/24 at 09:46; Status DC Glycopyrrolate 1 mg STK-MED ONCE .ROUTE; Start 12/23/24 at 11:18; Stop 12/23/24 at 11:18; Status DC Neostigmine Methylsulfate 10 mg STK-MED ONCE IV; Start 12/23/24 at 11:18; Stop 12/23/24 at 11:19; Status DC Fentanyl Citrate 100 mcg STK-MED ONCE .ROUTE Last administered on 12/23/24at 11:41; Start 12/23/24 at 11:38; Stop 12/23/24 at 11:38; Status DC Fentanyl Citrate 100 mcg STK-MED ONCE .ROUTE Last administered on 12/23/24at 11:53; Start 12/23/24 at 11:49; Stop 12/23/24 at 11:50; Status DC Albuterol 1 UDVIAL ONCE ONCE IH Last administered on 12/23/24at 13:50; Start 12/23/24 at 12:30; Stop 12/23/24 at 12:31; Status DC Albuterol 1 UDVIAL [id number] IH Last administered on 12/26/24at 11:43; Start 12/23/24 at 18:00; Stop 01/22/25 at 17:59 Albuterol 1 UDVIAL Q6H PRN IH; Start 12/23/24 at 13:00; Stop 01/22/25 at 12:59 Nicotine 21 mg DAILY TD Last administered on 12/26/24at 08:52; Start 12/24/24 at 09:00; Stop 01/23/25 at 08:59 Morphine Sulfate 4 mg Q4H PRN IVP Last administered on 12/24/24at 08:04; Start 12/23/24 at 15:00; Stop 12/24/24 at 13:46; Status DC Ketorolac Tromethamine 15 mg Q6H PRN IV Last administered on 12/24/24at 18:14; Start 12/23/24 at 15:00; Stop 12/25/24 at 10:28; Status DC Acetaminophen/ Codeine Phosphate 1 tab Q6H PRN PO; Start 12/23/24 at 15:00; Stop 12/23/24 at 14:54; Status DC Cyclobenzaprine HCl 10 mg TID PO Last administered on 12/26/24at 08:53; Start 12/23/24 at 21:00; Stop 01/22/25 at 20:59 Atorvastatin Calcium 10 mg HS PO Last administered on 12/25/24at 20:59; Start 12/24/24 at 21:00; Stop 01/23/25 at 20:59 Ergocalciferol 50,000 unit QWEEK PO Last administered on 12/26/24at 08:53; Start 12/24/24 at 09:00; Stop 01/23/25 at 08:59 Losartan Potassium 100 mg DAILY PO Last administered on 12/26/24 08:53; Start 12/24/24 at 09:00; Stop 01/23/25 at 08:59 Vitamin B Complex 500 mcg DAILY PO Last administered on 12/26/24at 08:53; Start 12/24/24 at 09:00; Stop 01/23/25 at 08:59 Home Med DAILY PO Last administered on 10/6/25at 08:48; Start 12/24/24 at 09:00; Stop 01/23/25 at 08:59 Home Med DAILY IH Last administered on 12/26/24at 08:48; Start 12/24/24 at 09:00; Stop 01/23/25 at 08:59 Home Med DAILY PO Last administered on 12/26/24at 08:49; Start 12/24/24 at 09:00; Stop 01/23/25 at 08:59 Home Med DAILY PO Last administered on 12/26/24at 08:50; Start 12/24/24 at 09:00; Stop 01/23/25 at 08:59 Home Med DAILY PO; Start 12/24/24 at 09:00; Stop 01/23/25 at 08:59 Tramadol HCl 50 mg Q6H PRN PO Last administered on 12/25/24at 11:44; Start 12/24/24 at 01:00; Stop 12/29/24 at 00:59 Pantoprazole Sodium 40 mg DAILY PO Last administered on 12/26/24at 08:53; Start 12/24/24 at 09:00; Stop 01/23/25 at 08:59 Magnesium Sulfate 50 ml @ 0 mls/hr PROTOCOL PRN IV Last administered on 12/26/24at 08:51; Start 12/24/24 at 07:00; Stop 01/23/25 at 06:59 Potassium Chloride 100 ml @ 100 mls/hr AD PRN IV; Start 12/24/24 at 07:00; Stop 01/23/25 at 06:59 Potassium Chloride 20 meq AD PRN PO; Start 12/24/24 at 07:00; Stop 01/23/25 at 06:59 Potassium Chloride 20 meq AD PRN PO; Start 12/24/24 at 07:00; Stop 01/23/25 at 06:59 Insulin Human Regular INSULIN SLIDING SCAL... ACHS SQ; Start 12/24/24 at 07:30; Stop 01/23/25 at 07:29 Dextrose 50 ml AD PRN IV; Start 12/24/24 at 07:00; Stop 01/23/25 at 06:59 Glucagon 1 mg AD PRN IM; Start 12/24/24 at 07:00; Stop 01/23/25 at 06:59 Albuterol 1 UDVIAL [id number] IH; Start 12/24/24 at 13:00; Stop 12/24/24 at 12:52; Status DC Hydromorphone HCl 0.5 mg Q4H PRN IVP Last administered on 12/26/24at 08:54; Start 12/24/24 at 14:00; Stop 12/29/24 at 13:59 Hydralazine HCl 5 mg Q6H PRN IV Last administered on 12/25/24at 16:30; Start 12/25/24 at 08:30; Stop 01/24/25 at 08:29 Enoxaparin Sodium 40 mg DAILY SQ Last administered on 12/25/24at 12:01; Start 12/25/24 at 10:30; Stop 12/25/24 at 16:39; Status DC Piperacillin Sod/ Tazobactam Sod 3.375 gm Q8H IV Last administered on 12/26/24at 12:22; Start 12/25/24 at 10:30; Stop 01/04/25 at 10:29 Ketorolac Tromethamine 30 mg Q6H PRN IV Last administered on 12/25/24at 14:36; Start 12/25/24 at 15:00; Stop 12/30/24 at 14:59 Enoxaparin Sodium 30 mg BID SQ Last administered on 12/26/24at 08:52; Start 12/25/24 at 21:00; Stop 01/24/25 at 20:59 NATHALY NAVARRETE MD Dec 26, 2024 12:57
--- NOTE | 2024-12-26 14:48 | PN ---
[facility] PROGRESS NOTE Date of Service: Dec 26, 2024 Time of Service: 14:39 SUBJECTIVE: 12/25 patient is seen and examined at bedside, case discussed with the RN, no acute events overnight, during my visit patient alert oriented x3, on supplemental oxygen via nasal cannula at 3 L, saturating 98%. Patient has a history of COPD, on chronic home oxygen at 3 L at home. Patient is status post laparoscopic lysis of adhesions, converted to open ventral hernia repair with mesh of hernia incarcerated 12/23/2024, tolerated the procedure well. Continue current pain medication with adjustment as needed. Continue supplemental oxygen via nasal cannula. Chest x-ray showing mild bibasilar airspace disease right greater than left, may reflect pneumoniae, suspect small right pleural effusion. Start the patient on Zosyn IV, we will request Pulmonary consult, monitor WBC in a.m.. Lovenox 40 mg subcutaneously daily, follow CBC transfuse as needed. Continue DuoNeb. Discussed with the patient, in agreement. 12/[address] chest without contrast concerning for pneumonia as well as a new soft tissue mass at T12 with moderate erosion, recommendations are to proceed with MRI of the thoracic spine with and without IV contrast REVIEW OF SYSTEMS CONSTITUTIONAL: Denies fevers, chills, or night sweats. No unintentional weight loss reported. NEUROLOGICAL: Denies headache, amaurosis fugax, motor weakness, sensory deficit, vertigo/spinning sensation, gait abnormalities, or tremors. ENT: No hearing loss, otalgia, otorrhea, rhinitis, rhinorrhea, hoarseness, or sore throat. CARDIOVASCULAR: Denies any exertional angina, dyspnea on exertion, orthopnea, paroxysmal nocturnal dyspnea, palpitations, life-threatening arrhythmias, claudication. PULMONARY: Denies any shortness of breath, cough, phlegm/sputum, hemoptysis, pleuritic chest pain. SLEEP: Denies morning headaches, daytime somnolence or napping. Denies difficulty falling asleep, staying asleep, waking from sleep. Denies knowledge of snoring. GASTROINTESTINAL: complain of mild abdominal pain Denies any type of dysphagia to either liquids or solids. Denies nausea, vomiting, pyrosis, early satiety,diarrhea, constipation, or changes in stool consistency or caliber. Denies coffee-ground emesis, hematemesis, hematochezia, or melanotic stools. GENITOURINARY: Denies frequency, urgency, nocturia, hematuria or incontinence (Storage/Irritative symptoms.) Low urinary stream, straining to void, urinary intermittency or hesitancy, splitting of the voiding stream, terminal dribbling. ENDOCRINOLOGIC: Denies polyuria, polydipsia, polyphagia or heat/cold intolerances. HEMATOLOGIC: Denies thrombophilia/previous clots, or coagulopathy/bleeding disorders. ONCOLOGIC: Denies personal history of malignancy. DERMATOLOGIC: Denies rashes or pruritus. PSYCHIATRIC: Denies any suicidal or homicidal ideation. Denies hallucinations. PHYSICAL EXAM GENERAL APPEARANCE: The patient is awake, alert, and oriented, in no acute cardiopulmonary distress. NEUROLOGICAL: Cranial nerves II-XII grossly intact. Motor is 5/5 in bilateral upper and lower extremities proximal to distal. No sensory deficits. HEENT: Face is symmetric. Pupils are equal and reactive. Extraocular movements are intact. NECK: Supple. No JVD. No thyromegaly. No submental, submandibular, pre- /postauricular, occipital or supraclavicular lymphadenopathy. CHEST: Normal chest expansion. No Telemetry. LUNGS: Absence of any rales, rhonchi or any wheezing. CARDIOVASCULAR: Regular. S1 and S2 normal. No appreciable rubs, murmurs or gallops. ABDOMEN: + MATEO Soft and nondistended. There is no rebound, voluntary guarding, or rigidity. : Deferred. No Palomo. EXTREMITIES: Non-edematous and not cyanotic. No clubbing. Good capillary refill. SKIN: No skin breakdown. Vital Signs (last 8hr) Date Time Temp Pulse Resp B/P (MAP) Pulse Ox O2 Delivery O2 Flow Rate FiO2 12/26/24 12:00 98.2 100 18 156/81 93 Nasal Cannula 4.0 12/26/24 11:43 100 20 12/26/24 11:24 97 Nasal Cannula* 3 N/A Aerosol Mask+ 12/26/24 07:50 94 22 N/Cannula Oximizer Hi LPM 4.0 36 12/26/24 07:34 99.0 98 18 159/97 97 Nasal Cannula 4.0 12/26/24 06:59 89 20 LABS: Laboratory: Test 12/26/24 11:18 12/26/24 07:42 12/26/24 04:11 Range/Units Whole Blood Glucose 126 H 70-110 MG/DL Bedside Glucose Comment Notified Nurse Blood Gas Specimen Type Arterial Arterial Blood pH 7.428 7.350-7.450 Arterial Blood Partial Pressure CO2 44 32-45 mmHg Arterial Blood Partial Pressure O2 58.8 L 83.0-108.0 mmHg Arterial Blood HCO3 28.7 H 21.0-28.0 mmol/L Arterial Blood Oxygen Saturation 91.0 L 94.0-98.0 % Arterial Blood Base Excess 3.7 H -2.0-3.0 mmol/L Blood Gas Temperature 37.0 35.5-37.0 CELSIUS Blood Gas Flow-by 4.00 0.00-15.00 L/min Blood Gas Vent Mode NC 4L ROOM AIR FiO2 36.0 % Blood Gas Specimen Comment RR, SRINATH,[employer] White Blood Count 10.6 4.8-10.8 K/uL Red Blood Count 4.89 4.00-5.50 MIL/uL Hemoglobin 13.8 12.0-16.0 g/dL Hematocrit 41.8 36-48 % Mean Corpuscular Volume 85.5 79-99 fL Mean Corpuscular Hemoglobin 28.2 27.0-33.0 pg Mean Corpuscular Hemoglobin Concent 33.0 32.0-36.0 g/dL Red Cell Distribution Width 17.2 H 11.0-15.5 % Platelet Count 258 130-400 K/uL Mean Platelet Volume 9.0 7.5-10.5 fL Nucleated Red Blood Cells 0.0 0.0-0.19 % Sodium Level 139 136-145 mmol/L Potassium Level 3.9 3.5-5.1 mmol/L Chloride Level 101 101-111 mmol/L Carbon Dioxide Level 29 21-32 mmol/L Blood Urea Nitrogen 11 7-18 mg/dL Creatinine 0.5 0.5-1.0 mg/dL Glomerular Filtration Rate Calc 100 >90 mL/min Random Glucose 110 H 70-105 mg/dL Total Calcium 8.6 8.5-10.1 mg/dL Magnesium Level 1.80 1.80-2.40 mg/dL Total Bilirubin 0.6 0.2-1.0 mg/dL Direct Bilirubin 0.2 0.0-0.3 mg/dL Aspartate Amino Transf (AST/SGOT) 16 10-37 U/L Alanine Aminotransferase (ALT/SGPT) 20 12-78 U/L Alkaline Phosphatase 60 50-136 U/L Total Protein 5.9 L 6.0-8.3 g/dL Albumin 2.6 L 3.5-5.0 g/dL Current Medications Medications (Trade) Dose Ordered Sig/Liz Route PRN Reason Start Time Stop Time Status Last Admin Dose Admin Acetaminophen/ Codeine Phosphate (TYLenol-coDEINE TAB) 1 tab Q6H PRN PO MODERATE PAIN (4-6) 12/23/24 15:00 12/23/24 14:54 DC Albuterol (DUOneb) 1 UDVIAL Q6H PRN IH SHORTNESS OF BREATH 12/23/24 13:00 01/22/25 12:59 Albuterol (DUOneb) 1 UDVIAL [id number] IH 12/23/24 18:00 01/22/25 17:59 12/26/24 11:43 1 UDVIAL Albuterol (DUOneb) 1 UDVIAL [id number] IH 12/24/24 13:00 12/24/24 12:52 DC Atorvastatin Calcium (LIPItor 10MG) 10 mg HS PO 12/24/24 21:00 01/23/25 20:59 12/25/24 20:59 10 MG Cyclobenzaprine HCl (Cyclobenzaprine HCl) 10 mg TID PO 12/23/24 21:00 01/22/25 20:59 12/26/24 08:53 10 MG Dextrose (D50w) 50 ml AD PRN IV HYPOGLYCEMIA PROTOCOL 12/24/24 07:00 01/23/25 06:59 Enoxaparin Sodium (Lovenox) 30 mg BID SQ 12/25/24 21:00 01/24/25 20:59 12/26/24 08:52 30 MG Enoxaparin Sodium (Lovenox) 40 mg DAILY SQ 12/25/24 10:30 12/25/24 16:39 DC 12/25/24 12:01 40 MG Ergocalciferol (Drisdol) 50,000 unit QWEEK PO 12/24/24 09:00 01/23/25 08:59 12/26/24 08:53 50,000 UNIT Glucagon (Glucagon 1mg Kit) 1 mg AD PRN IM HYPOGLYCEMIA PROTOCOL 12/24/24 07:00 01/23/25 06:59 Home Med (Home Medication) DAILY IH 12/24/24 09:00 01/23/25 08:59 12/26/24 08:48 1 EACH Home Med (Home Medication) DAILY PO 12/24/24 09:00 01/23/25 08:59 12/26/24 08:48 1 EACH Home Med (Home Medication) DAILY PO 12/24/24 09:00 01/23/25 08:59 12/26/24 08:49 1 EACH Home Med (Home Medication) DAILY PO 12/24/24 09:00 01/23/25 08:59 12/26/24 08:50 1 EACH Home Med (Home Medication) DAILY PO 12/24/24 09:00 01/23/25 08:59 Hydralazine HCl (APRESOLine 20MG INJ) 5 mg Q6H PRN IV ADMINISTER FOR SBP > 160 12/25/24 08:30 01/24/25 08:29 12/25/24 16:30 5 MG Hydromorphone HCl (DiLAUDid 0.5MG INJ) 0.5 mg Q4H PRN IVP SEVERE PAIN (7-10) 12/24/24 14:00 12/29/24 13:59 12/26/24 08:54 0.5 MG Insulin Human Regular (humuLIN R 100 UNIT/ML 3ML) INSULIN SLIDING SCAL... ACHS SQ 12/24/24 07:30 01/23/25 07:29 Ketorolac Tromethamine (toRADol) 15 mg Q6H PRN IV MODERATE PAIN (4-6) IF NPO 12/23/24 15:00 12/25/24 10:28 DC 12/24/24 18:14 15 MG Ketorolac Tromethamine (toRADol) 30 mg Q6H PRN IV MODERATE PAIN (4-6) IF NPO 12/25/24 15:00 12/30/24 14:59 12/25/24 14:36 30 MG Losartan Potassium (CozAAR 100MG TAB) 100 mg DAILY PO 12/24/24 09:00 01/23/25 08:59 12/26/24 08:53 100 MG Magnesium Sulfate 50 ml @ 0 mls/hr PROTOCOL PRN IV OTHER [SEE ORDER COMMENTS] 12/24/24 07:00 01/23/25 06:59 12/26/24 08:51 25 MLS/HR Morphine Sulfate (morPHINE 4MG SYG) 4 mg Q4H PRN IVP SEVERE PAIN (7-10) 12/23/24 15:00 12/24/24 13:46 DC 12/24/24 08:04 4 MG Nicotine (Nicoderm) 21 mg DAILY TD 12/24/24 09:00 01/23/25 08:59 12/26/24 08:52 21 MG Pantoprazole Sodium (PROTonix 40MG TAB) 40 mg DAILY PO 12/24/24 09:00 01/23/25 08:59 12/26/24 08:53 40 MG Piperacillin Sod/ Tazobactam Sod (Zosyn 3.375gm+NS 50ml) 3.375 gm Q8H IV 12/25/24 10:30 01/04/25 10:29 12/26/24 12:22 3.375 GM Potassium Chloride 100 ml @ 100 mls/hr AD PRN IV POTASSIUM PROTOCOL 12/24/24 07:00 01/23/25 06:59 Potassium Chloride (K-Dur/Klor-Con 20meq) 20 meq AD PRN PO POTASSIUM PROTOCOL 12/24/24 07:00 01/23/25 06:59 Potassium Chloride (KCl 10% Elixir 20meq/15ml) 20 meq AD PRN PO POTASSIUM PROTOCOL 12/24/24 07:00 01/23/25 06:59 Tramadol HCl (UltRAM) 50 mg Q6H PRN PO MODERATE PAIN (4-6) 12/24/24 01:00 12/29/24 00:59 12/25/24 11:44 50 MG Vitamin B Complex (Vitamin B-12) 500 mcg DAILY PO 12/24/24 09:00 01/23/25 08:59 12/26/24 08:53 500 MCG DIAGNOSTICS / RADIOLOGY: [ ] ASSESSMENT: Ventral hernia S/P Laparoscopic lysis of adhesions converted to open ventral hernia repair with mesh incarcerated POA Diabetes type 2 POA Hypertension POA Hyperlipidemia POA COPD on home O2 as needed POA Morbid obesity POA Nicotine dependence POA Possible developing pneumoniae PLAN: Patient is status post laparoscopic lysis of adhesions, converted to open ventral hernia repair with mesh of hernia incarcerated 12/23/2024, tolerated the procedure well. Chest x-ray showing mild bibasilar airspace disease right greater than left, may reflect pneumoniae, suspect small right pleural effusion. Start the patient on Zosyn IV. Pulmonary is on board. CT chest concerning for pneumonia versus other non malignant process as well as a small mass at T12 with recommendations for MRI with and without contrast. NEURO: Minimize central acting medications as possible. Fall Precautions. Well lit room through the day and minimize interruptions through the night to prevent acute delirium. Obtain MRI of the thoracic spine with and without IV contrast PULMONARY: Supplemental 02 as needed Maintain aspiration precautions at all times Follow up with Pulmonary Medicine, appreciate assistance CARDIOVASCULAR: Follow hemodynamics. Vital signs per facility protocol GI & NUTRITION: Continue nutritional support Aspirations precautions Prokinetic agents and laxatives as needed KIDNEYS & ELECTROLYTES: Strict monitoring of intake and output Daily weights Avoid nephrotoxic agents Monitor electrolytes and replace as needed ENDOCRINE: Maintain blood glucose between 100-180 at all times. Insulin sliding scale for blood glucose management Hypoglycemia and hyperglycemia protocol in place INFECTIOUS DISEASE: Trend temperature, WBC Continue Zosyn for now HEMATOLOGY & COAGULATION: Monitor H&H. Keep Hgb > 7 Transfuse 1 unit of PRBC for Hgb < 7 Transfuse 1 pack of platelets of platelets < 20, 000 Watch for any signs and symptoms of bleeding SKIN: Pressure ulcer prevention per facility protocol ORTHO/REHAB Continue PT/OT Supportive measures: Continue GI and DVT prophylaxis with pantoprazole and Lovenox respectively All questions answered time spent: > 35 min CHARLINE SERRANO IV, MD Dec 26, 2024 14:48
[2024-12-27] VITALS (17 sets, daily range): BP systolic 125–153; BP diastolic 63–90; PULSE 73–101; RESP 19–28; TEMP 97.8–98.7; O2SAT 92–97
[2024-12-27 06:00] LABS: NUCLEATED RED BLOOD CELLS 0.0 % (0.0-0.19); PLATELET COUNT (AUTO) 248.0 K/uL (130-400); RED BLOOD CELL COUNT(AUTO) 4.97 MIL/uL (4.00-5.50); RED CELL DISTRIBUTION WIDTH 17.0 % (11.0-15.5); WHITE BLOOD COUNT (AUTO) 8.7 K/uL (4.8-10.8)
[2024-12-27 06:15] LABS: ASPARTATE AMINOTRANSFERASE 14.0 U/L (10-37); CREATININE 0.6 mg/dL (0.5-1.0); GLOMERULAR FILTR. RATE CALC 96.0 mL/min (>90); GLUCOSE,RANDOM 105.0 mg/dL (70-105); SODIUM SERUM 140.0 mmol/L (136-145); TOTAL PROTEIN, SERUM 6.0 g/dL (6.0-8.3); UREA NITROGEN, BLOOD 13.0 mg/dL (7-18)
--- NOTE | 2024-12-27 08:29 | HMCIMG ---
EXAMINATION: SPECTRAL DOPPLER ULTRASOUND EXAMINATION OF THE BILATERAL LOWER EXTREMITY VEINS. CLINICAL HISTORY: To rule out DVT. COMPARISON: Duplex lower extremity veins date 12/27/2019. TECHNIQUE: Real-time ultrasound scan of the veins of the bilateral lower extremity with color Doppler flow, spectral waveform analysis and compression. FINDINGS: DEEP VEINS: The common femoral, superficial femoral, and popliteal veins are echolucent and compressible. There is normal color Doppler flow throughout. The visualized calf veins appear patent. SUPERFICIAL VEINS: The greater saphenous veins are patent and compressible. SOFT TISSUES: No popliteal fossa cyst or other abnormalities. IMPRESSION: No deep venous thrombosis evident in the bilateral lower extremity. No superficial thrombophlebitis in the bilateral lower extremity. /Anita
--- NOTE | 2024-12-27 11:13 | PN ---
[facility] PROGRESS NOTE Date of Service: Dec 27, 2024 Time of Service: 11:11 SUBJECTIVE: 12/25 patient is seen and examined at bedside, case discussed with the RN, no acute events overnight, during my visit patient alert oriented x3, on supplemental oxygen via nasal cannula at 3 L, saturating 98%. Patient has a history of COPD, on chronic home oxygen at 3 L at home. Patient is status post laparoscopic lysis of adhesions, converted to open ventral hernia repair with mesh of hernia incarcerated 12/23/2024, tolerated the procedure well. Continue current pain medication with adjustment as needed. Continue supplemental oxygen via nasal cannula. Chest x-ray showing mild bibasilar airspace disease right greater than left, may reflect pneumoniae, suspect small right pleural effusion. Start the patient on Zosyn IV, we will request Pulmonary consult, monitor WBC in a.m.. Lovenox 40 mg subcutaneously daily, follow CBC transfuse as needed. Continue DuoNeb. Discussed with the patient, in agreement. 12/[address] chest without contrast concerning for pneumonia as well as a new soft tissue mass at T12 with moderate erosion, recommendations are to proceed with MRI of the thoracic spine with and without IV contrast 12/27 T12 mass is known to the patient. She would like heme oncology evaluation. We agreed heme oncology evaluation can be performed inpatient or outpatient/SNF. Patient is pending SNF placement. REVIEW OF SYSTEMS CONSTITUTIONAL: Denies fevers, chills, or night sweats. No unintentional weight loss reported. NEUROLOGICAL: Denies headache, amaurosis fugax, motor weakness, sensory deficit, vertigo/spinning sensation, gait abnormalities, or tremors. ENT: No hearing loss, otalgia, otorrhea, rhinitis, rhinorrhea, hoarseness, or sore throat. CARDIOVASCULAR: Denies any exertional angina, dyspnea on exertion, orthopnea, paroxysmal nocturnal dyspnea, palpitations, life-threatening arrhythmias, claudication. PULMONARY: Denies any shortness of breath, cough, phlegm/sputum, hemoptysis, pleuritic chest pain. SLEEP: Denies morning headaches, daytime somnolence or napping. Denies difficulty falling asleep, staying asleep, waking from sleep. Denies knowledge of snoring. GASTROINTESTINAL: complain of mild abdominal pain Denies any type of dysphagia to either liquids or solids. Denies nausea, vomiting, pyrosis, early satiety,diarrhea, constipation, or changes in stool consistency or caliber. Den ies coffee-ground emesis, hematemesis, hematochezia, or melanotic stools. GENITOURINARY: Denies frequency, urgency, nocturia, hematuria or incontinence (Storage/Irritative symptoms.) Low urinary stream, straining to void, urinary intermittency or hesitancy, splitting of the voiding stream, terminal dribbling. ENDOCRINOLOGIC: Denies polyuria, polydipsia, polyphagia or heat/cold intolerances. HEMATOLOGIC: Denies thrombophilia/previous clots, or coagulopathy/bleeding disorders. ONCOLOGIC: Denies personal history of malignancy. DERMATOLOGIC: Denies rashes or pruritus. PSYCHIATRIC: Denies any suicidal or homicidal ideation. Denies hallucinations. PHYSICAL EXAM GENERAL APPEARANCE: The patient is awake, alert, and oriented, in no acute cardiopulmonary distress. NEUROLOGICAL: Cranial nerves II-XII grossly intact. Motor is 5/5 in bilateral upper and lower extremities proximal to distal. No sensory deficits. HEENT: Face is symmetric. Pupils are equal and reactive. Extraocular movements are intact. NECK: Supple. No JVD. No thyromegaly. No submental, submandibular, pre- /postauricular, occipital or supraclavicular lymphadenopathy. CHEST: Normal chest expansion. No Telemetry. LUNGS: Absence of any rales, rhonchi or any wheezing. CARDIOVASCULAR: Regular. S1 and S2 normal. No appreciable rubs, murmurs or gallops. ABDOMEN: + MATEO Soft and nondistended. There is no rebound, voluntary guarding, or rigidity. : Deferred. No Palomo. EXTREMITIES: Non-edematous and not cyanotic. No clubbing. Good capillary refill. SKIN: No skin breakdown. Vital Signs (last 8hr) Date Time Temp Pulse Resp B/P (MAP) Pulse Ox O2 Delivery O2 Flow Rate FiO2 12/27/24 11:10 95 22 N/Cannula Oximizer Hi LPM 4.0 36 12/27/24 08:00 97.9 93 20 144/88 93 Nasal Cannula 4.0 12/27/24 06:35 82 22 12/27/24 06:34 82 22 N/Cannula Oximizer Hi LPM 4.0 36 12/27/24 04:00 98.4 84 22 125/63 98 CPAP LABS: Laboratory: Test 12/27/24 05:50 12/27/24 05:19 12/26/24 15:20 12/26/24 07:42 Range/Units White Blood Count 8.7 4.8-10.8 K/uL Red Blood Count 4.97 4.00-5.50 MIL/uL Hemoglobin 13.8 12.0-16.0 g/dL Hematocrit 43.3 36-48 % Mean Corpuscular Volume 87.1 79-99 fL Mean Corpuscular Hemoglobin 27.8 27.0-33.0 pg Mean Corpuscular Hemoglobin Concent 31.9 L 32.0-36.0 g/dL Red Cell Distribution Width 17.0 H 11.0-15.5 % Platelet Count 248 130-400 K/uL Mean Platelet Volume 8.6 7.5-10.5 fL Nucleated Red Blood Cells 0.0 0.0-0.19 % Sodium Level 140 136-145 mmol/L Potassium Level 4.3 3.5-5.1 mmol/L Chloride Level 102 101-111 mmol/L Carbon Dioxide Level 32 21-32 mmol/L Blood Urea Nitrogen 13 7-18 mg/dL Creatinine 0.6 0.5-1.0 mg/dL Glomerular Filtration Rate Calc 96 >90 mL/min Random Glucose 105 70-105 mg/dL Total Calcium 9.0 8.5-10.1 mg/dL Magnesium Level 2.00 1.80-2.40 mg/dL Total Bilirubin 0.6 0.2-1.0 mg/dL Direct Bilirubin 0.2 0.0-0.3 mg/dL Aspartate Amino Transf (AST/SGOT) 14 10-37 U/L Alanine Aminotransferase (ALT/SGPT) 18 12-78 U/L Alkaline Phosphatase 65 50-136 U/L Total Protein 6.0 6.0-8.3 g/dL Albumin 2.6 L 3.5-5.0 g/dL Whole Blood Glucose 115 H 70-110 MG/DL Bedside Glucose Comment Notified Nurse Blood Gas Specimen Type Arterial Arterial Blood pH 7.428 7.350-7.450 Arterial Blood Partial Pressure CO2 44 32-45 mmHg Arterial Blood Partial Pressure O2 58.8 L 83.0-108.0 mmHg Arterial Blood HCO3 28.7 H 21.0-28.0 mmol/L Arterial Blood Oxygen Saturation 91.0 L 94.0-98.0 % Arterial Blood Base Excess 3.7 H -2.0-3.0 mmol/L Blood Gas Temperature 37.0 35.5-37.0 CELSIUS Blood Gas Flow-by 4.00 0.00-15.00 L/min Blood Gas Vent Mode NC 4L ROOM AIR FiO2 36.0 % Blood Gas Specimen Comment RR, 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,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 Current Medications Medications (Trade) Dose Ordered Sig/Liz Route PRN Reason Start Time Stop Time Status Last Admin Dose Admin Acetaminophen/ Codeine Phosphate (TYLenol-coDEINE TAB) 1 tab Q6H PRN PO MODERATE PAIN (4-6) 12/23/24 15:00 12/23/24 14:54 DC Albuterol (DUOneb) 1 UDVIAL Q6H PRN IH SHORTNESS OF BREATH 12/23/24 13:00 01/22/25 12:59 Albuterol (DUOneb) 1 UDVIAL [id number] IH 12/23/24 18:00 01/22/25 17:59 12/27/24 11:10 1 UDVIAL Albuterol (DUOneb) 1 UDVIAL [id number] IH 12/24/24 13:00 12/24/24 12:52 DC Atorvastatin Calcium (LIPItor 10MG) 10 mg HS PO 12/24/24 21:00 01/23/25 20:59 12/26/24 20:58 10 MG Cyclobenzaprine HCl (Cyclobenzaprine HCl) 10 mg TID PO 12/23/24 21:00 01/22/25 20:59 12/27/24 09:53 10 MG Dextrose (D50w) 50 ml AD PRN IV HYPOGLYCEMIA PROTOCOL 12/24/24 07:00 01/23/25 06:59 Enoxaparin Sodium (Lovenox) 30 mg BID SQ 12/25/24 21:00 01/24/25 20:59 12/27/24 09:53 30 MG Enoxaparin Sodium (Lovenox) 40 mg DAILY SQ 12/25/24 10:30 12/25/24 16:39 DC 12/25/24 12:01 40 MG Ergocalciferol (Drisdol) 50,000 unit QWEEK PO 12/24/24 09:00 01/23/25 08:59 12/26/24 08:53 50,000 UNIT Glucagon (Glucagon 1mg Kit) 1 mg AD PRN IM HYPOGLYCEMIA PROTOCOL 12/24/24 07:00 01/23/25 06:59 Home Med (Home Medication) DAILY IH 12/24/24 09:00 01/23/25 08:59 12/27/24 09:50 1 EACH Home Med (Home Medication) DAILY PO 12/24/24 09:00 01/23/25 08:59 12/27/24 09:50 1 EACH Home Med (Home Medication) DAILY PO 12/24/24 09:00 01/23/25 08:59 12/27/24 09:51 1 EACH Home Med (Home Medication) DAILY PO 12/24/24 09:00 01/23/25 08:59 12/27/24 09:51 1 EACH Home Med (Home Medication) DAILY PO 12/24/24 09:00 01/23/25 08:59 Hydralazine HCl (APRESOLine 20MG INJ) 5 mg Q6H PRN IV ADMINISTER FOR SBP > 160 12/25/24 08:30 01/24/25 08:29 12/25/24 16:30 5 MG Hydromorphone HCl (DiLAUDid 0.5MG INJ) 0.5 mg Q4H PRN IVP SEVERE PAIN (7-10) 12/24/24 14:00 12/29/24 13:59 12/27/24 09:53 0.5 MG Insulin Human Regular (humuLIN R 100 UNIT/ML 3ML) INSULIN SLIDING SCAL... ACHS SQ 12/24/24 07:30 01/23/25 07:29 Ketorolac Tromethamine (toRADol) 15 mg Q6H PRN IV MODERATE PAIN (4-6) IF NPO 12/23/24 15:00 12/25/24 10:28 DC 12/24/24 18:14 15 MG Ketorolac Tromethamine (toRADol) 30 mg Q6H PRN IV MODERATE PAIN (4-6) IF NPO 12/25/24 15:00 12/30/24 14:59 12/26/24 18:31 30 MG Losartan Potassium (CozAAR 100MG TAB) 100 mg DAILY PO 12/24/24 09:00 01/23/25 08:59 12/27/24 09:51 100 MG Magnesium Sulfate 50 ml @ 0 mls/hr PROTOCOL PRN IV OTHER [SEE ORDER COMMENTS] 12/24/24 07:00 01/23/25 06:59 12/26/24 08:51 25 MLS/HR Morphine Sulfate (morPHINE 4MG SYG) 4 mg Q4H PRN IVP SEVERE PAIN (7-10) 12/23/24 15:00 12/24/24 13:46 DC 12/24/24 08:04 4 MG Nicotine (Nicoderm) 21 mg DAILY TD 12/24/24 09:00 01/23/25 08:59 12/27/24 09:52 21 MG Pantoprazole Sodium (PROTonix 40MG TAB) 40 mg DAILY PO 12/24/24 09:00 01/23/25 08:59 12/27/24 09:54 40 MG Piperacillin Sod/ Tazobactam Sod (Zosyn 3.375gm+NS 50ml) 3.375 gm Q8H IV 12/25/24 10:30 01/04/25 10:29 12/27/24 09:53 3.375 GM Potassium Chloride 100 ml @ 100 mls/hr AD PRN IV POTASSIUM PROTOCOL 12/24/24 07:00 01/23/25 06:59 Potassium Chloride (K-Dur/Klor-Con 20meq) 20 meq AD PRN PO POTASSIUM PROTOCOL 12/24/24 07:00 01/23/25 06:59 Potassium Chloride (KCl 10% Elixir 20meq/15ml) 20 meq AD PRN PO POTASSIUM PROTOCOL 12/24/24 07:00 01/23/25 06:59 Tramadol HCl (UltRAM) 50 mg Q6H PRN PO MODERATE PAIN (4-6) 12/24/24 01:00 12/29/24 00:59 12/25/24 11:44 50 MG Vitamin B Complex (Vitamin B-12) 500 mcg DAILY PO 12/24/24 09:00 01/23/25 08:59 12/27/24 09:53 500 MCG DIAGNOSTICS / RADIOLOGY: [ ] ASSESSMENT: Ventral hernia S/P Laparoscopic lysis of adhesions converted to open ventral hernia repair with mesh incarcerated POA Diabetes type 2 POA Hypertension POA Hyperlipidemia POA COPD on home O2 as needed POA Morbid obesity POA Nicotine dependence POA Possible developing pneumoniae PLAN: Patient is status post laparoscopic lysis of adhesions, converted to open ventral hernia repair with mesh of hernia incarcerated 12/23/2024, tolerated the procedure well. Chest x-ray showing mild bibasilar airspace disease right greater than left, may reflect pneumoniae, suspect small right pleural effusion. Start the patient on Zosyn IV. Pulmonary is on board. CT chest concerning for pneumonia versus other non malignant process as well as a small mass at T12 with recommendations for MRI with and without contrast. NEURO: Minimize central acting medications as possible. Fall Precautions. Well lit room through the day and minimize interruptions through the night to prevent acute delirium. Obtain MRI of the thoracic spine with and without IV contrast PULMONARY: Supplemental 02 as needed Maintain aspiration precautions at all times Follow up with Pulmonary Medicine, appreciate assistance CARDIOVASCULAR: Follow hemodynamics. Vital signs per facility protocol GI & NUTRITION: Continue nutritional support Aspirations precautions Prokinetic agents and laxatives as needed KIDNEYS & ELECTROLYTES: Strict monitoring of intake and output Daily weights Avoid nephrotoxic agents Monitor electrolytes and replace as needed ENDOCRINE: Maintain blood glucose between 100-180 at all times. Insulin sliding scale for blood glucose management Hypoglycemia and hyperglycemia protocol in place INFECTIOUS DISEASE: Trend temperature, WBC Continue Zosyn for now HEMATOLOGY & COAGULATION: Monitor H&H. Keep Hgb > 7 Transfuse 1 unit of PRBC for Hgb < 7 Transfuse 1 pack of platelets of platelets < 20, 000 Watch for any signs and symptoms of bleeding Heme oncology SKIN: Pressure ulcer prevention per facility protocol ORTHO/REHAB Continue PT/OT Supportive measures: Continue GI and DVT prophylaxis with pantoprazole and Lovenox respectively All questions answered time spent: > 35 min CHARLINE SERRANO IV, MD Dec 27, 2024 11:13
--- NOTE | 2024-12-27 13:14 | NUR ---
DR QUIROGA CAME BY NEW ORDER FOR MRI THORACIC WITH CONTRAST AND FOR LSO BRACE
[2024-12-27] MEDS ORDERED: HYDROcodone/APAP 5/325 1 TAB TABLET PO PRN (14:30)
--- NOTE | 2024-12-27 15:20 | PN ---
GENERAL SURGERY PROGRESS NOTE Date/Time Patient Seen: [ 12/27/2024 11:45 AM] Interval History: [69-year-old female, postop day # 4, laparoscopic lysis of adhesions, converted to open ventral hernia repair with mesh of hernia 20 x [address] Blanco Patient only complaining of soreness over surgical incisions Output from MATEO drain was reported at 130 cc last night Using abdominal binder Tolerating soft diet without any complaints of nausea or vomiting Patient has been passing gas but no bowel movement yet WBCs 8.7 H&H 13.8 and 43.3 ] Current Medications Medications (Trade) Dose Ordered Sig/Liz Route Start Time Stop Time Status Last Admin Dose Admin Albuterol (DUOneb) 1 UDVIAL [id number] IH 12/23/24 18:00 01/22/25 17:59 12/27/24 11:10 1 UDVIAL Albuterol (DUOneb) 1 UDVIAL [id number] IH 12/24/24 13:00 12/24/24 12:52 DC Atorvastatin Calcium (LIPItor 10MG) 10 mg HS PO 12/24/24 21:00 01/23/25 20:59 12/26/24 20:58 10 MG Cyclobenzaprine HCl (Cyclobenzaprine HCl) 10 mg TID PO 12/23/24 21:00 01/22/25 20:59 12/27/24 14:01 10 MG Enoxaparin Sodium (Lovenox) 30 mg BID SQ 12/25/24 21:00 01/24/25 20:59 12/27/24 09:53 30 MG Enoxaparin Sodium (Lovenox) 40 mg DAILY SQ 12/25/24 10:30 12/25/24 16:39 DC 12/25/24 12:01 40 MG Ergocalciferol (Drisdol) 50,000 unit QWEEK PO 12/24/24 09:00 01/23/25 08:59 12/26/24 08:53 50,000 UNIT Home Med (Home Medication) DAILY IH 12/24/24 09:00 01/23/25 08:59 12/27/24 09:50 1 EACH Home Med (Home Medication) DAILY PO 12/24/24 09:00 01/23/25 08:59 12/27/24 09:50 1 EACH Home Med (Home Medication) DAILY PO 12/24/24 09:00 01/23/25 08:59 12/27/24 09:51 1 EACH Home Med (Home Medication) DAILY PO 12/24/24 09:00 01/23/25 08:59 12/27/24 09:51 1 EACH Home Med (Home Medication) DAILY PO 12/24/24 09:00 01/23/25 08:59 Insulin Human Regular (humuLIN R 100 UNIT/ML 3ML) INSULIN SLIDING SCAL... ACHS SQ 12/24/24 07:30 01/23/25 07:29 Losartan Potassium (CozAAR 100MG TAB) 100 mg DAILY PO 12/24/24 09:00 01/23/25 08:59 12/27/24 09:51 100 MG Nicotine (Nicoderm) 21 mg DAILY TD 12/24/24 09:00 01/23/25 08:59 12/27/24 09:52 21 MG Pantoprazole Sodium (PROTonix 40MG TAB) 40 mg DAILY PO 12/24/24 09:00 01/23/25 08:59 12/27/24 09:54 40 MG Piperacillin Sod/ Tazobactam Sod (Zosyn 3.375gm+NS 50ml) 3.375 gm Q8H IV 12/25/24 10:30 01/04/25 10:29 12/27/24 09:53 3.375 GM Vitamin B Complex (Vitamin B-12) 500 mcg DAILY PO 12/24/24 09:00 01/23/25 08:59 12/27/24 09:53 500 MCG Physical Examination: GENERAL: [No acute distress, elderly female, comfortably resting in bed.] HEAD: [Normocephalic.] EYES: [Normal conjunctiva.] ENT: [Hearing grossly intact.] NECK: [Supple.] LUNGS: [Clear breath sounds bilaterally.] HEART: [Normal rate and rhythm.] VASC: [Peripheral pulses +2 bilaterally.] ABD: [Midabdominal surgical incision with edges well approximated with Dermabond, no erythema, ecchymosis or drainage, abdomen is soft, nondistended, positive bowel sounds.] : [Not examined] EXT: [No edema.] SKIN: [No rashes or lesions noted.] NEURO: [Awake, alert, and oriented x3. No focal sensory or strength deficits noted.] Vital Signs (last 8hr) Date Time Temp Pulse Resp B/P (MAP) Pulse Ox O2 Delivery O2 Flow Rate FiO2 12/27/24 14:28 92 Room Air* 0 21 12/27/24 11:17 98.4 91 19 137/85 92 Room Air 21 12/27/24 11:11 95 22 12/27/24 11:10 95 22 N/Cannula Oximizer Hi LPM 4.0 36 12/27/24 08:00 97.9 93 20 144/88 93 Nasal Cannula 4.0 Laboratory: [ ] Hematology Labs: Test 12/27/24 05:50 Range/Units White Blood Count 8.7 4.8-10.8 K/uL Red Blood Count 4.97 4.00-5.50 MIL/uL Hemoglobin 13.8 12.0-16.0 g/dL Hematocrit 43.3 36-48 % Mean Corpuscular Volume 87.1 79-99 fL Mean Corpuscular Hemoglobin 27.8 27.0-33.0 pg Mean Corpuscular Hemoglobin Concent 31.9 L 32.0-36.0 g/dL Red Cell Distribution Width 17.0 H 11.0-15.5 % Platelet Count 248 130-400 K/uL Mean Platelet Volume 8.6 7.5-10.5 fL Nucleated Red Blood Cells 0.0 0.0-0.19 % Chemistry Labs: Test 12/27/24 11:11 12/27/24 05:50 12/26/24 15:20 Range/Units Whole Blood Glucose 131 H 70-110 MG/DL Sodium Level 140 136-145 mmol/L Potassium Level 4.3 3.5-5.1 mmol/L Chloride Level 102 101-111 mmol/L Carbon Dioxide Level 32 21-32 mmol/L Blood Urea Nitrogen 13 7-18 mg/dL Creatinine 0.6 0.5-1.0 mg/dL Glomerular Filtration Rate Calc 96 >90 mL/min Random Glucose 105 70-105 mg/dL Total Calcium 9.0 8.5-10.1 mg/dL Magnesium Level 2.00 1.80-2.40 mg/dL Total Bilirubin 0.6 0.2-1.0 mg/dL Direct Bilirubin 0.2 0.0-0.3 mg/dL Aspartate Amino Transf (AST/SGOT) 14 10-37 U/L Alanine Aminotransferase (ALT/SGPT) 18 12-78 U/L Alkaline Phosphatase 65 50-136 U/L Total Protein 6.0 6.0-8.3 g/dL Albumin 2.6 L 3.5-5.0 g/dL Bedside Glucose Comment Notified Nurse Diagnostics / Radiology: [Copy/Paste Echos/Imaging Report here] Impression and Plan: [69-year-old female postop day 4.,laparoscopic lysis of adhesions, converted to open ventral hernia repair with mesh of hernia 20 x [address] Blanco Pending acceptance as to SNF unit Continue using abdominal binder / Continue closely monitoring output from MATEO drain Start weaning off Dilaudid Start Colace 100 mg p.o. b.i.d. Repeat labs in a.m. Surgical team will continue to follow Dr. Blanco updated on patient's status Surgical case has been discussed with my supervising physician Plan of care was formulated and agreed upon Greater than 45 minutes spent examining patient, reviewing chart and working on documentation] ATTESTATION BY PHYSICIAN I have seen and examined the patient. I reviewed the documentation, medical decision making, and treatment plan as noted by the mid-level provider above. I agree with the findings and plan of care. MD JOSÉ MOORE LETICIA [facility] Dec 27, 2024 15:20
--- NOTE | 2024-12-27 18:55 | PN ---
[facility] PROGRESS NOTE Date Patient Seen: Dec 27, 2024 Time of Visit: 1347 Supervising Physician: Dr. Johnson Inpatient Consults: BIS PROBLEM LIST: 1. Acute hypoxic respiratory failure 2. Right lower lobe pneumonia 3. COPD on home O2 4. Tobacco abuse 5. Morbid obesity 6. Obstructive sleep apnea undiagnosed & untreated -STOP-BANG SCORE 5 Point, High Risk of KEN 7. 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 RECOMMENDATIONS: Consult Neurosurgery CPAP, settings: 8 cm 30% FiO2. Continue breathing treatments Continue IS Continue Solu-Medrol 40 mg Q six hours Continue with antibiotics Zosyn 3.375 g IV q.8 hours. Smoking sensation, Nicoderm 21 mcg patch daily Continue to monitor respiratory status closely Maintain adequate oxygenation Keep O2 sats greater or equal to 90% Aspiration precautions Dispo per primary team INTERVAL HISTORY: 12/27 patient was seen and examined by bedside with no family present. Patient's labs this morning unremarkable. At time of visit patient has no specific complaints. Patient denies any chest pain or shortness of breadth at this time. Patient denies any nausea vomiting or abdominal pain. Patient currently on4 L nasal cannula appears to be tolerating well patient does use home oxygen. CT chest reviewed by supervising physician and noted to have pneumonia recommendations continue with current IV antibiotics we will start patient on Solu-Medrol 40 Q six patient will continue with IS and nebs. We will continue to monitor patient closely. Dispo per primary team REVIEW OF SYSTEMS: 12 point ROS reviewed with patient. Pertinent positives mentioned above. Otherwise negative. PHYSICAL EXAM: GENERAL: alert, weak, awake oriented x 3 HEENT: EOMI, Sclera non icteric, moist mucosa NECK: Supple, no JVD, trachea midline LUNGS: Diminished breath sounds bilaterally. wheezes upper lobes HEART: Regular rate and rhythm. Normal S1 and S2, without murmurs ABD: Abdomen soft, nontender. Bowel sounds present EXT: No clubbing cyanosis or edema NEURO: Alert and oriented to person, follows commands Vital Signs (last 8hr) Date Time Temp Pulse Resp B/P (MAP) Pulse Ox O2 Delivery O2 Flow Rate FiO2 12/27/24 16:00 98.2 88 20 148/88 96 Nasal Cannula 4.0 12/27/24 14:28 92 Room Air* 0 21 12/27/24 11:17 98.4 91 19 137/85 92 Room Air 21 12/27/24 11:11 95 22 12/27/24 11:10 95 22 N/Cannula Oximizer Hi LPM 4.0 36 LABS: Hematology Labs: Test 12/27/24 05:50 Range/Units White Blood Count 8.7 4.8-10.8 K/uL Red Blood Count 4.97 4.00-5.50 MIL/uL Hemoglobin 13.8 12.0-16.0 g/dL Hematocrit 43.3 36-48 % Mean Corpuscular Volume 87.1 79-99 fL Mean Corpuscular Hemoglobin 27.8 27.0-33.0 pg Mean Corpuscular Hemoglobin Concent 31.9 L 32.0-36.0 g/dL Red Cell Distribution Width 17.0 H 11.0-15.5 % Platelet Count 248 130-400 K/uL Mean Platelet Volume 8.6 7.5-10.5 fL Nucleated Red Blood Cells 0.0 0.0-0.19 % Chemistry Labs: Test 12/27/24 15:24 12/27/24 05:50 12/26/24 15:20 Range/Units Whole Blood Glucose 114 H 70-110 MG/DL Sodium Level 140 136-145 mmol/L Potassium Level 4.3 3.5-5.1 mmol/L Chloride Level 102 101-111 mmol/L Carbon Dioxide Level 32 21-32 mmol/L Blood Urea Nitrogen 13 7-18 mg/dL Creatinine 0.6 0.5-1.0 mg/dL Glomerular Filtration Rate Calc 96 >90 mL/min Random Glucose 105 70-105 mg/dL Total Calcium 9.0 8.5-10.1 mg/dL Magnesium Level 2.00 1.80-2.40 mg/dL Total Bilirubin 0.6 0.2-1.0 mg/dL Direct Bilirubin 0.2 0.0-0.3 mg/dL Aspartate Amino Transf (AST/SGOT) 14 10-37 U/L Alanine Aminotransferase (ALT/SGPT) 18 12-78 U/L Alkaline Phosphatase 65 50-136 U/L Total Protein 6.0 6.0-8.3 g/dL Albumin 2.6 L 3.5-5.0 g/dL Bedside Glucose Comment Notified Nurse DIAGNOSTICS / RADIOLOGY RESULTS: na PLAN NEURO: Minimize central acting medications as possible. Maintain fall precautions, adequate lighting during the day PULMONARY: Supplemental 02 as needed. Maintain aspiration precautions at all times CARDIOVASCULAR: Follow hemodynamics. Vital signs per facility protocol GI & NUTRITION: Continue with nutritional support. Continue stool softeners and laxatives as needed. KIDNEYS & ELECTROLYTES: Strict monitoring of intake, output and overall fluid balance. Avoid nephrotoxic medications to the extent possible. Medications to be dosed according to renal function. Monitor electrolytes and replace as needed ENDOCRINE: Maintain blood glucose between 100-180 at all times. Hypoglycemia protocol in place INFECTIOUS DISEASE: Trend temperature, WBC and procalcitonin level Follow cultures, deescalate antibiotics as soon as possible. Panculture if new onset fever ONCOLOGY/HEMATOLOGY/COAGULATION: Monitor for s/s of bleeding Monitor hemoglobin, coagulation studies as needed SKIN: Pressure ulcer prevention per facility protocol Specialty mattress ORTHO/REHAB: Continue PT/OT Prophylaxis: Continue GI and DVT prophylaxis Code Status: Full Resuscitation Disposition: TBD Other: Case discussed with supervising physician plan of care agreed upon YA ARMENDARIZ Dec 27, 2024 18:54
--- NOTE | 2024-12-27 22:08 | DS ---
The patient is a 69-year-old female patient with history of diabetes and hypertension who is in chronic use of O2 due to obstructive pulmonary disease, morbidly obese, who had just had a ventral hernia repair by Dr. Blanco. She reported having had back pain since she had the procedure at [facility] for a gynecologic procedure. She has been ambulating with minimal assistance using the walker. She denies any numbness or tingling in the lower extremities. She is voiding spontaneously. No neck tenderness. No cranial nerve palsies noted. The chest is symmetrical. In abdomen, she has a MATEO with about 50 mL right after the surgery. Again, she is moving the lower extremities without any problems. She has tenderness in the lower mid back. The MRI was reviewed and this is a lumbar MRI that reveals some lesion at T12. She would benefit from a dedicated MRI of the thoracic spine. She was explained, addressed with the family members in her room. TID: [id number] RECEIPT: [id number]
[2024-12-27] MEDS: Solu-medROL 40MG VIAL IVP SCH (22:39)
[2024-12-28] VITALS (10 sets, daily range): BP systolic 144–167; BP diastolic 75–97; PULSE 85–102; RESP 18–21; TEMP 97.5–98.8; O2SAT 92–95
[2024-12-28] MEDS: Solu-medROL 40MG VIAL IVP SCH (05:11)
[2024-12-28 06:01] LABS: IMMATURE GRANULOCYTE ABSOLUTE 0.06 K/uL (0-1); NUCLEATED RED BLOOD CELLS 0.0 % (0.0-0.19); PLATELET COUNT (AUTO) 288 K/uL (130-400); RED BLOOD CELL COUNT(AUTO) 5.13 MIL/uL (4.00-5.50); RED CELL DISTRIBUTION WIDTH 16.5 % (11.0-15.5); WHITE BLOOD COUNT (AUTO) 7.9 K/uL (4.8-10.8)
[2024-12-28 06:12] LABS: CREATININE 0.5 mg/dL (0.5-1.0); GLOMERULAR FILTR. RATE CALC 100.0 mL/min (>90); GLUCOSE,RANDOM 132.0 mg/dL (70-105); SODIUM SERUM 139.0 mmol/L (136-145); UREA NITROGEN, BLOOD 13.0 mg/dL (7-18)
--- NOTE | 2024-12-28 12:52 | PN ---
SUBJECTIVE: The patient was seen by Dr. Valencia yesterday. He recommended MRI and also recommended a biopsy, says destructive lesion of T12 and also has some other lesions visible on that MRI consistent with metastatic disease. PHYSICAL EXAMINATION: GENERAL: Shows an elderly woman. VITAL SIGNS: Blood pressure 169/64, pulse 93, respirations 20. HEENT: Benign. CHEST: Clear. ABDOMEN: Soft. EXTREMITIES: ____ edema. NEUROLOGIC: Alert and oriented. IMPRESSION: 1. Status post ventral hernia repair. 2. Postoperative issues, resolving. 3. 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 PLAN: 1. I agree totally with getting the MRI. I agree with the biopsy as well. She told me that Dr. Valencia says he wants to make it okay, make sure it is okay to lie on her stomach for the procedure. We will clarify that with Dr. Blanco. I do not see any issue with that. 2. The patient is very concerned about "spreading the cancer if we do a biopsy" and I told her that is very low risk, it is already metastatic, it looks like there are other bones involved. I do not think that would change anything. We absolutely need to know what it is to know how to proceed. 3. Proceed with a thoracic MRI as ordered by Dr. Valencia. Proceed with his biopsy as soon as possible. We will go from there. TID: [id number] RECEIPT: [id number]
--- NOTE | 2024-12-28 13:15 | NUR ---
DC PLAN UPDATES SENT TO [facility]. PAIN IMPROVED. Addendum: 12/28/24 at 1322 by MUKUND NGUYEN RN CM Amended: Links added.
--- NOTE | 2024-12-28 13:42 | PN ---
[facility] PROGRESS NOTE Date of Service: Dec 28, 2024 Time of Service: 13:38 SUBJECTIVE: 12/25 patient is seen and examined at bedside, case discussed with the RN, no acute events overnight, during my visit patient alert oriented x3, on supplemental oxygen via nasal cannula at 3 L, saturating 98%. Patient has a history of COPD, on chronic home oxygen at 3 L at home. Patient is status post laparoscopic lysis of adhesions, converted to open ventral hernia repair with mesh of hernia incarcerated 12/23/2024, tolerated the procedure well. Continue current pain medication with adjustment as needed. Continue supplemental oxygen via nasal cannula. Chest x-ray showing mild bibasilar airspace disease right greater than left, may reflect pneumoniae, suspect small right pleural effusion. Start the patient on Zosyn IV, we will request Pulmonary consult, monitor WBC in a.m.. Lovenox 40 mg subcutaneously daily, follow CBC transfuse as needed. Continue DuoNeb. Discussed with the patient, in agreement. 12/[address] chest without contrast concerning for pneumonia as well as a new soft tissue mass at T12 with moderate erosion, recommendations are to proceed with MRI of the thoracic spine with and without IV contrast 12/27 T12 mass is known to the patient. She would like heme oncology evaluation. We agreed heme oncology evaluation can be performed inpatient or outpatient/SNF. Patient is pending SNF placement. 12/28 patient continues to be in pain as expected due to her spinal mass. We are transitioning to oral pain regimen and she will be discharged soon. Spoke with the nurse about giving oral pain medications REVIEW OF SYSTEMS CONSTITUTIONAL: Denies fevers, chills, or night sweats. No unintentional weight loss reported. NEUROLOGICAL: Denies headache, amaurosis fugax, motor weakness, sensory deficit, vertigo/spinning sensation, gait abnormalities, or tremors. ENT: No hearing loss, otalgia, otorrhea, rhinitis, rhinorrhea, hoarseness, or sore throat. CARDIOVASCULAR: Denies any exertional angina, dyspnea on exertion, orthopnea, paroxysmal nocturnal dyspnea, palpitations, life-threatening arrhythmias, claudication. PULMONARY: Denies any shortness of breath, cough, phlegm/sputum, hemoptysis, pleuritic chest pain. SLEEP: Denies morning headaches, daytime somnolence or napping. Denies difficulty falling asleep, staying asleep, waking from sleep. Denies knowledge of snoring. GASTROINTESTINAL: complain of mild abdominal pain Denies any type of dysphagia to either liquids or solids. Denies nausea, vomiting, pyrosis, early satiety,diarrhea, constipation, or changes in stool consistency or caliber. Denies coffee-ground emesis, hematemesis, hematochezia, or melanotic stools. GENITOURINARY: Denies frequency, urgency, nocturia, hematuria or incontinence (Storage/Irritative symptoms.) Low urinary stream, straining to void, urinary intermittency or hesitancy, splitting of the voiding stream, terminal dribbling. ENDOCRINOLOGIC: Denies polyuria, polydipsia, polyphagia or heat/cold intolerances. HEMATOLOGIC: Denies thrombophilia/previous clots, or coagulopathy/bleeding disorders. ONCOLOGIC: Denies personal history of malignancy. DERMATOLOGIC: Denies rashes or pruritus. PSYCHIATRIC: Denies any suicidal or homicidal ideation. Denies hallucinations. PHYSICAL EXAM GENERAL APPEARANCE: The patient is awake, alert, and oriented, in no acute cardiopulmonary distress. NEUROLOGICAL: Cranial nerves II-XII grossly intact. Motor is 5/5 in bilateral upper and lower extremities proximal to distal. No sensory deficits. HEENT: Face is symmetric. Pupils are equal and reactive. Extraocular movements are intact. NECK: Supple. No JVD. No thyromegaly. No submental, submandibular, pre- /postauricular, occipital or supraclavicular lymphadenopathy. CHEST: Normal chest expansion. No Telemetry. LUNGS: Absence of any rales, rhonchi or any wheezing. CARDIOVASCULAR: Regular. S1 and S2 normal. No appreciable rubs, murmurs or gallops. ABDOMEN: + MATEO Soft and nondistended. There is no rebound, voluntary guarding, or rigidity. : Deferred. No Palomo. EXTREMITIES: Non-edematous and not cyanotic. No clubbing. Good capillary refill. SKIN: No skin breakdown. Vital Signs (last 8hr) Date Time Temp Pulse Resp B/P (MAP) Pulse Ox O2 Delivery O2 Flow Rate FiO2 12/28/24 11:54 97.9 102 19 153/90 91 Nasal Cannula 4.0 12/28/24 11:28 99 18 12/28/24 07:57 97.7 95 21 162/96 90 Nasal Cannula 4.0 12/28/24 06:51 93 20 N/Cannula Oximizer Hi LPM 3.0 32 12/28/24 06:48 93 18 LABS: Laboratory: Test 12/28/24 11:48 12/28/24 05:44 12/27/24 05:50 12/26/24 15:20 Range/Units Whole Blood Glucose 164 H 70-110 MG/DL White Blood Count 7.9 4.8-10.8 K/uL Red Blood Count 5.13 4.00-5.50 MIL/uL Hemoglobin 14.2 12.0-16.0 g/dL Hematocrit 43.5 36-48 % Mean Corpuscular Volume 84.8 79-99 fL Mean Corpuscular Hemoglobin 27.7 27.0-33.0 pg Mean Corpuscular Hemoglobin Concent 32.6 32.0-36.0 g/dL Red Cell Distribution Width 16.5 H 11.0-15.5 % Platelet Count 288 130-400 K/uL Mean Platelet Volume 8.7 7.5-10.5 fL Immature Granulocyte % (Auto) 0.8 0-1 % Neutrophils (%) (Auto) 77.9 H 40.0-77.0 % Lymphocytes (%) (Auto) 17.7 L 21.0-51.0 % Monocytes (%) (Auto) 2.5 L 3.0-13.0 % Eosinophils (%) (Auto) 0.6 0.0-8.0 % Basophils (%) (Auto) 0.5 0.0-5.0 % Neutrophils # (Auto) 6.2 1.8-7.7 K/uL Lymphocytes # (Auto) 1.4 1.0-4.8 K/uL Monocytes # (Auto) 0.2 0.1-1.0 K/uL Eosinophils # (Auto) 0.05 0.00-0.70 K/uL Basophils # (Auto) 0.04 0.00-0.20 K/uL Absolute Immature Granulocyte (auto 0.06 0-1 K/uL Nucleated Red Blood Cells 0.0 0.0-0.19 % Sodium Level 139 136-145 mmol/L Potassium Level 4.0 3.5-5.1 mmol/L Chloride Level 101 101-111 mmol/L Carbon Dioxide Level 29 21-32 mmol/L Blood Urea Nitrogen 13 7-18 mg/dL Creatinine 0.5 0.5-1.0 mg/dL Glomerular Filtration Rate Calc 100 >90 mL/min Random Glucose 132 H 70-105 mg/dL Total Calcium 9.2 8.5-10.1 mg/dL Magnesium Level 2.00 1.80-2.40 mg/dL Total Bilirubin 0.6 0.2-1.0 mg/dL Direct Bilirubin 0.2 0.0-0.3 mg/dL Aspartate Amino Transf (AST/SGOT) 14 10-37 U/L Alanine Aminotransferase (ALT/SGPT) 18 12-78 U/L Alkaline Phosphatase 65 50-136 U/L Total Protein 6.0 6.0-8.3 g/dL Albumin 2.6 L 3.5-5.0 g/dL Bedside Glucose Comment Notified Nurse Current Medications Medications (Trade) Dose Ordered Sig/Liz Route PRN Reason Start Time Stop Time Status Last Admin Dose Admin Acetaminophen/ Codeine Phosphate (TYLenol-coDEINE TAB) 1 tab Q6H PRN PO MODERATE PAIN (4-6) 12/23/24 15:00 12/23/24 14:54 DC Acetaminophen/ Hydrocodone Bitart (NORco 5/325MG) 1 tab Q6H PRN PO MODERATE PAIN (4-6) 12/27/24 14:30 12/27/24 14:21 DC Albuterol (DUOneb) 1 UDVIAL Q6H PRN IH SHORTNESS OF BREATH 12/23/24 13:00 01/22/25 12:59 Albuterol (DUOneb) 1 UDVIAL [id number] IH 12/23/24 18:00 01/22/25 17:59 12/28/24 11:28 1 UDVIAL Albuterol (DUOneb) 1 UDVIAL [id number] IH 12/24/24 13:00 12/24/24 12:52 DC Atorvastatin Calcium (LIPItor 10MG) 10 mg HS PO 12/24/24 21:00 01/23/25 20:59 12/27/24 22:38 10 MG Cyclobenzaprine HCl (Cyclobenzaprine HCl) 10 mg TID PO 12/23/24 21:00 01/22/25 20:59 12/28/24 13:31 10 MG Dextrose (D50w) 50 ml AD PRN IV HYPOGLYCEMIA PROTOCOL 12/24/24 07:00 01/23/25 06:59 Docusate Sodium (COLace 100MG CAP) 100 mg BID PO 12/27/24 21:00 01/26/25 20:59 12/28/24 08:05 100 MG Enoxaparin Sodium (Lovenox) 30 mg BID SQ 12/25/24 21:00 01/24/25 20:59 12/28/24 08:05 30 MG Enoxaparin Sodium (Lovenox) 40 mg DAILY SQ 12/25/24 10:30 12/25/24 16:39 DC 12/25/24 12:01 40 MG Ergocalciferol (Drisdol) 50,000 unit QWEEK PO 12/24/24 09:00 01/23/25 08:59 12/26/24 08:53 50,000 UNIT Glucagon (Glucagon 1mg Kit) 1 mg AD PRN IM HYPOGLYCEMIA PROTOCOL 12/24/24 07:00 01/23/25 06:59 Home Med (Home Medication) DAILY IH 12/24/24 09:00 01/23/25 08:59 12/28/24 08:07 1 EACH Home Med (Home Medication) DAILY PO 12/24/24 09:00 01/23/25 08:59 12/28/24 08:06 1 EACH Home Med (Home Medication) DAILY PO 12/24/24 09:00 01/23/25 08:59 12/28/24 08:06 1 EACH Home Med (Home Medication) DAILY PO 12/24/24 09:00 01/23/25 08:59 12/28/24 08:07 1 EACH Home Med (Home Medication) DAILY PO 12/24/24 09:00 01/23/25 08:59 Hydralazine HCl (APRESOLine 20MG INJ) 5 mg Q6H PRN IV ADMINISTER FOR SBP > 160 12/25/24 08:30 01/24/25 08:29 12/25/24 16:30 5 MG Hydromorphone HCl (DiLAUDid 0.5MG INJ) 0.2 mg Q6H PRN IVP SEVERE PAIN (7-10) 12/27/24 14:30 12/28/24 13:17 DC 12/27/24 22:45 0.2 MG Hydromorphone HCl (DiLAUDid 0.5MG INJ) 0.5 mg Q4H PRN IVP SEVERE PAIN (7-10) 12/24/24 14:00 12/27/24 14:04 DC 12/27/24 14:01 0.5 MG Insulin Human Regular (humuLIN R 100 UNIT/ML 3ML) INSULIN SLIDING SCAL... ACHS SQ 12/24/24 07:30 01/23/25 07:29 Ketorolac Tromethamine (toRADol) 15 mg Q6H PRN IV MODERATE PAIN (4-6) IF NPO 12/23/24 15:00 12/25/24 10:28 DC 12/24/24 18:14 15 MG Ketorolac Tromethamine (toRADol) 30 mg Q6H PRN IV MODERATE PAIN (4-6) IF NPO 12/25/24 15:00 12/30/24 14:59 12/28/24 01:53 30 MG Losartan Potassium (CozAAR 100MG TAB) 100 mg DAILY PO 12/24/24 09:00 01/23/25 08:59 12/28/24 08:05 100 MG Magnesium Sulfate 50 ml @ 0 mls/hr PROTOCOL PRN IV OTHER [SEE ORDER COMMENTS] 12/24/24 07:00 01/23/25 06:59 12/26/24 08:51 25 MLS/HR Methylprednisolone Sodium Succinate (Solu-medROL 40MG) 40 mg Q6H IVP 12/27/24 19:00 12/28/24 00:52 DC 12/27/24 22:39 40 MG Methylprednisolone Sodium Succinate (Solu-medROL 40MG) 40 mg Q6H IVP 12/28/24 05:00 01/27/25 04:59 12/28/24 10:11 40 MG Morphine Sulfate (morPHINE 4MG SYG) 4 mg Q4H PRN IVP SEVERE PAIN (7-10) 12/23/24 15:00 12/24/24 13:46 DC 12/24/24 08:04 4 MG Nicotine (Nicoderm) 21 mg DAILY TD 12/24/24 09:00 01/23/25 08:59 12/28/24 08:05 21 MG Pantoprazole Sodium (PROTonix 40MG TAB) 40 mg DAILY PO 12/24/24 09:00 01/23/25 08:59 12/28/24 08:05 40 MG Piperacillin Sod/ Tazobactam Sod (Zosyn 3.375gm+NS 50ml) 3.375 gm Q8H IV 12/25/24 10:30 01/04/25 10:29 12/28/24 10:11 3.375 GM Potassium Chloride 100 ml @ 100 mls/hr AD PRN IV POTASSIUM PROTOCOL 12/24/24 07:00 01/23/25 06:59 Potassium Chloride (K-Dur/Klor-Con 20meq) 20 meq AD PRN PO POTASSIUM PROTOCOL 12/24/24 07:00 01/23/25 06:59 Potassium Chloride (KCl 10% Elixir 20meq/15ml) 20 meq AD PRN PO POTASSIUM PROTOCOL 12/24/24 07:00 01/23/25 06:59 Tramadol HCl (UltRAM) 50 mg Q6H PRN PO MODERATE PAIN (4-6) 12/24/24 01:00 12/29/24 00:59 12/25/24 11:44 50 MG Vitamin B Complex (Vitamin B-12) 500 mcg DAILY PO 12/24/24 09:00 01/23/25 08:59 12/28/24 08:05 500 MCG DIAGNOSTICS / RADIOLOGY: [ ] ASSESSMENT: Ventral hernia S/P Laparoscopic lysis of adhesions converted to open ventral hernia repair with mesh incarcerated POA Diabetes type 2 POA Hypertension POA Hyperlipidemia POA COPD on home O2 as needed POA Morbid obesity POA Nicotine dependence POA Possible developing pneumoniae PLAN: Patient is status post laparoscopic lysis of adhesions, converted to open ventral hernia repair with mesh of hernia incarcerated 12/23/2024, tolerated the procedure well. Chest x-ray showing mild bibasilar airspace disease right greater than left, may reflect pneumoniae, suspect small right pleural effusion. Start the patient on Zosyn IV. Pulmonary is on board. CT chest concerning for pneumonia versus other non malignant process as well as a small mass at T12 with recommendations for MRI with and without contrast. NEURO: Minimize central acting medications as possible. Fall Precautions. Well lit room through the day and minimize interruptions through the night to prevent acute delirium. Obtain MRI of the thoracic spine with and without IV contrast Discontinue IV Dilaudid Continue Tylenol, Toradol and Ultram p.r.n. for pain PULMONARY: Supplemental 02 as needed Maintain aspiration precautions at all times Follow up with Pulmonary Medicine, appreciate assistance CARDIOVASCULAR: Follow hemodynamics. Vital signs per facility protocol GI & NUTRITION: Continue nutritional support Aspirations precautions Prokinetic agents and laxatives as needed KIDNEYS & ELECTROLYTES: Strict monitoring of intake and output Daily weights Avoid nephrotoxic agents Monitor electrolytes and replace as needed ENDOCRINE: Maintain blood glucose between 100-180 at all times. Insulin sliding scale for blood glucose management Hypoglycemia and hyperglycemia protocol in place INFECTIOUS DISEASE: Trend temperature, WBC Continue Zosyn for now HEMATOLOGY & COAGULATION: Monitor H&H. Keep Hgb > 7 Transfuse 1 unit of PRBC for Hgb < 7 Transfuse 1 pack of platelets of platelets < 20, 000 Watch for any signs and symptoms of bleeding Follow up with heme oncology -obtain thoracic spinal MRI -obtain biopsy Follow up with Neurosurgery -obtain thoracic MRI SKIN: Pressure ulcer prevention per facility protocol ORTHO/REHAB Continue PT/OT Supportive measures: Continue GI and DVT prophylaxis with pantoprazole and Lovenox respectively All questions answered time spent: > 35 min CHARLINE SERRANO IV, MD Dec 28, 2024 13:42
--- NOTE | 2024-12-28 16:05 | PN ---
[facility] PROGRESS NOTE Date Patient Seen: Dec 28, 2024 Time of Visit: 1112 Supervising Physician: Dr. Carr Inpatient Consults: BIS PROBLEM LIST: 1. Acute hypoxic respiratory failure 2. Bilateral pneumonia worse on the Right 3. COPD on home O2 4. Tobacco abuse 5. Morbid obesity 6. Obstructive sleep apnea undiagnosed & untreated -STOP-BANG SCORE 5 Point, High Risk of KEN 7. 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 RECOMMENDATIONS: We will obtain COVID and flu We will order for sputum culture Consult Neurosurgery CPAP, settings: 8 cm 30% FiO2. Continue breathing treatments Continue IS Continue Solu-Medrol 40 mg Q six hours Continue with antibiotics Zosyn 3.375 g IV q.8 hours. Smoking sensation, Nicoderm 21 mcg patch daily Continue to monitor respiratory status closely Maintain adequate oxygenation Keep O2 sats greater or equal to 90% Aspiration precautions Dispo per primary team INTERVAL HISTORY: 12/27 patient was seen and examined by bedside with no family present. Patient's labs this morning unremarkable. At time of visit patient has no specific complaints. Patient denies any chest pain or shortness of breadth at this time. Patient denies any nausea vomiting or abdominal pain. Patient currently on4 L nasal cannula appears to be tolerating well patient does use home oxygen. CT chest reviewed by supervising physician and noted to have pneumonia recommendations continue with current IV antibiotics we will start patient on Solu-Medrol 40 Q six patient will continue with IS and nebs. We will continue to monitor patient closely. Dispo per primary team 12/28 patient was seen and examined by bedside with family present. At time of visit patient has no specific complaints. Remains on her baseline with FiO2 at 4 L. patient denies any chest pain or shortness of breadth. Patient does report respiratory has improved from yesterday with the initiation of the steroids. At this time we will order a COVID and flu tests along with sputum culture and follow up with results. As per primary nurse no acute events to be reported at this time. Dispo per primary team REVIEW OF SYSTEMS: 12 point ROS reviewed with patient. Pertinent positives mentioned above. Otherwise negative. PHYSICAL EXAM: GENERAL: alert, weak, awake oriented x 3 HEENT: EOMI, Sclera non icteric, moist mucosa NECK: Supple, no JVD, trachea midline LUNGS: Diminished breath sounds bilaterally. wheezes upper lobes HEART: Regular rate and rhythm. Normal S1 and S2, without murmurs ABD: Abdomen soft, nontender. Bowel sounds present EXT: No clubbing cyanosis or edema NEURO: Alert and oriented to person, follows commands Vital Signs (last 8hr) Date Time Temp Pulse Resp B/P (MAP) Pulse Ox O2 Delivery O2 Flow Rate FiO2 12/28/24 15:43 98.8 98 21 157/97 92 Nasal Cannula 4.0 12/28/24 11:54 97.9 102 19 153/90 91 Nasal Cannula 4.0 12/28/24 11:28 99 18 LABS: Hematology Labs: Test 12/28/24 05:44 Range/Units White Blood Count 7.9 4.8-10.8 K/uL Red Blood Count 5.13 4.00-5.50 MIL/uL Hemoglobin 14.2 12.0-16.0 g/dL Hematocrit 43.5 36-48 % Mean Corpuscular Volume 84.8 79-99 fL Mean Corpuscular Hemoglobin 27.7 27.0-33.0 pg Mean Corpuscular Hemoglobin Concent 32.6 32.0-36.0 g/dL Red Cell Distribution Width 16.5 H 11.0-15.5 % Platelet Count 288 130-400 K/uL Mean Platelet Volume 8.7 7.5-10.5 fL Immature Granulocyte % (Auto) 0.8 0-1 % Neutrophils (%) (Auto) 77.9 H 40.0-77.0 % Lymphocytes (%) (Auto) 17.7 L 21.0-51.0 % Monocytes (%) (Auto) 2.5 L 3.0-13.0 % Eosinophils (%) (Auto) 0.6 0.0-8.0 % Basophils (%) (Auto) 0.5 0.0-5.0 % Neutrophils # (Auto) 6.2 1.8-7.7 K/uL Lymphocytes # (Auto) 1.4 1.0-4.8 K/uL Monocytes # (Auto) 0.2 0.1-1.0 K/uL Eosinophils # (Auto) 0.05 0.00-0.70 K/uL Basophils # (Auto) 0.04 0.00-0.20 K/uL Absolute Immature Granulocyte (auto 0.06 0-1 K/uL Nucleated Red Blood Cells 0.0 0.0-0.19 % Chemistry Labs: Test 12/28/24 15:13 12/28/24 05:44 12/27/24 05:50 Range/Units Whole Blood Glucose 148 H 70-110 MG/DL Sodium Level 139 136-145 mmol/L Potassium Level 4.0 3.5-5.1 mmol/L Chloride Level 101 101-111 mmol/L Carbon Dioxide Level 29 21-32 mmol/L Blood Urea Nitrogen 13 7-18 mg/dL Creatinine 0.5 0.5-1.0 mg/dL Glomerular Filtration Rate Calc 100 >90 mL/min Random Glucose 132 H 70-105 mg/dL Total Calcium 9.2 8.5-10.1 mg/dL Magnesium Level 2.00 1.80-2.40 mg/dL Total Bilirubin 0.6 0.2-1.0 mg/dL Direct Bilirubin 0.2 0.0-0.3 mg/dL Aspartate Amino Transf (AST/SGOT) 14 10-37 U/L Alanine Aminotransferase (ALT/SGPT) 18 12-78 U/L Alkaline Phosphatase 65 50-136 U/L Total Protein 6.0 6.0-8.3 g/dL Albumin 2.6 L 3.5-5.0 g/dL DIAGNOSTICS / RADIOLOGY RESULTS: na PLAN NEURO: Minimize central acting medications as possible. Maintain fall precautions, adequate lighting during the day PULMONARY: Supplemental 02 as needed. Maintain aspiration precautions at all times CARDIOVASCULAR: Follow hemodynamics. Vital signs per facility protocol GI & NUTRITION: Continue with nutritional support. Continue stool softeners and laxatives as needed. KIDNEYS & ELECTROLYTES: Strict monitoring of intake, output and overall fluid balance. Avoid nephrotoxic medications to the extent possible. Medications to be dosed according to renal function. Monitor electrolytes and replace as needed ENDOCRINE: Maintain blood glucose between 100-180 at all times. Hypoglycemia protocol in place INFECTIOUS DISEASE: Trend temperature, WBC and procalcitonin level Follow cultures, deescalate antibiotics as soon as possible. Panculture if new onset fever ONCOLOGY/HEMATOLOGY/COAGULATION: Monitor for s/s of bleeding Monitor hemoglobin, coagulation studies as needed SKIN: Pressure ulcer prevention per facility protocol Specialty mattress ORTHO/REHAB: Continue PT/OT Prophylaxis: Continue GI and DVT prophylaxis Code Status: Full Resuscitation Disposition: TBD Other: Case discussed with supervising physician plan of care agreed upon YA ARMENDARIZ Dec 28, 2024 16:05
[2024-12-28] MEDS ORDERED: GADOTERATE MEGLUMINE 10 MMOL/20 ML VIAL IV ONE (16:20)
[2024-12-28 18:28] LABS: COVID19 (SARS ANTIGEN RAPID) PRESUMPTIVE NEGATIVE (NEGATIVE); INFLUENZA TYPE A Negative For Type A (NEGATIVE); INFLUENZA TYPE B Negative For Type B (NEGATIVE)
[2024-12-29] VITALS (15 sets, daily range): BP systolic 138–153; BP diastolic 68–87; PULSE 71–95; RESP 18–20; TEMP 97.7–98.1; O2SAT 91–96
[2024-12-29 05:07] LABS: NUCLEATED RED BLOOD CELLS 0.0 % (0.0-0.19); PLATELET COUNT (AUTO) 318.0 K/uL (130-400); RED BLOOD CELL COUNT(AUTO) 5.03 MIL/uL (4.00-5.50); RED CELL DISTRIBUTION WIDTH 16.4 % (11.0-15.5); WHITE BLOOD COUNT (AUTO) 13.3 K/uL (4.8-10.8)
[2024-12-29 05:35] LABS: CREATININE 0.6 mg/dL (0.5-1.0); GLOMERULAR FILTR. RATE CALC 96.0 mL/min (>90); GLUCOSE,RANDOM 134.0 mg/dL (70-105); SODIUM SERUM 140.0 mmol/L (136-145); UREA NITROGEN, BLOOD 14.0 mg/dL (7-18)
--- NOTE | 2024-12-29 10:26 | PN ---
[facility] PROGRESS NOTE Date of Service: Dec 29, 2024 Time of Service: 10: SUBJECTIVE: 12/25 patient is seen and examined at bedside, case discussed with the RN, no acute events overnight, during my visit patient alert oriented x3, on supplemental oxygen via nasal cannula at 3 L, saturating 98%. Patient has a history of COPD, on chronic home oxygen at 3 L at home. Patient is status post laparoscopic lysis of adhesions, converted to open ventral hernia repair with mesh of hernia incarcerated 12/23/2024, tolerated the procedure well. Continue current pain medication with adjustment as needed. Continue supplemental oxygen via nasal cannula. Chest x-ray showing mild bibasilar airspace disease right greater than left, may reflect pneumoniae, suspect small right pleural effusion. Start the patient on Zosyn IV, we will request Pulmonary consult, monitor WBC in a.m.. Lovenox 40 mg subcutaneously daily, follow CBC transfuse as needed. Continue DuoNeb. Discussed with the patient, in agreement. 12/[address] chest without contrast concerning for pneumonia as well as a new soft tissue mass at T12 with moderate erosion, recommendations are to proceed with MRI of the thoracic spine with and without IV contrast 12/27 T12 mass is known to the patient. She would like heme oncology evaluation. We agreed heme oncology evaluation can be performed inpatient or outpatient/SNF. Patient is pending SNF placement. 12/28 patient continues to be in pain as expected due to her spinal mass. We are transitioning to oral pain regimen and she will be discharged soon. Spoke with the nurse about giving oral pain medications 12/29/24 Patient was seen in the room, she is aware of the incendental findings, MRI of thoracic has been reviewed. We will follow the recommendation from Dr. Fnoseca, pending biopsy. REVIEW OF SYSTEMS CONSTITUTIONAL: Denies fevers, chills, or night sweats. No unintentional weight loss reported. NEUROLOGICAL: Denies headache, amaurosis fugax, motor weakness, sensory deficit, vertigo/spinning sensation, gait abnormalities, or tremors. ENT: No hearing loss, otalgia, otorrhea, rhinitis, rhinorrhea, hoarseness, or sore throat. CARDIOVASCULAR: Denies any exertional angina, dyspnea on exertion, orthopnea, paroxysmal nocturnal dyspnea, palpitations, life-threatening arrhythmias, claudication. PULMONARY: Denies any shortness of breath, cough, phlegm/sputum, hemoptysis, pleuritic chest pain. SLEEP: Denies morning headaches, daytime somnolence or napping. Denies difficulty falling asleep, staying asleep, waking from sleep. Denies knowledge of snoring. GASTROINTESTINAL: complain of mild abdominal pain Denies any type of dysphagia to either liquids or solids. Denies nausea, vomiting, pyrosis, early satiety,diarrhea, constipation, or changes in stool consistency or caliber. Denies coffee-ground emesis, hematemesis, hematochezia, or melanotic stools. GENITOURINARY: Denies frequency, urgency, nocturia, hematuria or incontinence (Storage/Irritative symptoms.) Low urinary stream, straining to void, urinary intermittency or hesitancy, splitting of the voiding stream, terminal dribbling. ENDOCRINOLOGIC: Denies polyuria, polydipsia, polyphagia or heat/cold intolerances. HEMATOLOGIC: Denies thrombophilia/previous clots, or coagulopathy/bleeding disorders. ONCOLOGIC: Denies personal history of malignancy. DERMATOLOGIC: Denies rashes or pruritus. PSYCHIATRIC: Denies any suicidal or homicidal ideation. Denies hallucinations. PHYSICAL EXAM GENERAL APPEARANCE: The patient is awake, alert, and oriented, in no acute cardiopulmonary distress. NEUROLOGICAL: Cranial nerves II-XII grossly intact. Motor is 5/5 in bilateral upper and lower extremities proximal to distal. No sensory deficits. HEENT: Face is symmetric. Pupils are equal and reactive. Extraocular movements are intact. NECK: Supple. No JVD. No thyromegaly. No submental, submandibular, pre- /postauricular, occipital or supraclavicular lymphadenopathy. CHEST: Normal chest expansion. No Telemetry. LUNGS: Absence of any rales, rhonchi or any wheezing. CARDIOVASCULAR: Regular. S1 and S2 normal. No appreciable rubs, murmurs or ga llops. ABDOMEN: + MATEO Soft and nondistended. There is no rebound, voluntary guarding, or rigidity. : Deferred. No Palomo. EXTREMITIES: Non-edematous and not cyanotic. No clubbing. Good capillary refill. SKIN: No skin breakdown. Vital Signs (last 8hr) Date Time Temp Pulse Resp B/P (MAP) Pulse Ox O2 Delivery O2 Flow Rate FiO2 12/29/24 07:48 97.7 81 18 152/68 92 Room Air 12/29/24 06:44 77 18 12/29/24 06:42 77 20 N/Cannula Oximizer Hi LPM 3.0 32 12/29/24 04:00 97.9 76 20 139/80 93 Nasal Cannula 3.0 LABS: Laboratory: Test 12/29/24 06:11 12/29/24 04:57 12/28/24 18:02 12/28/24 05:44 Range/Units Whole Blood Glucose 131 H 70-110 MG/DL White Blood Count 13.3 #H 4.8-10.8 K/uL Red Blood Count 5.03 4.00-5.50 MIL/uL Hemoglobin 14.1 12.0-16.0 g/dL Hematocrit 43.2 36-48 % Mean Corpuscular Volume 85.9 79-99 fL Mean Corpuscular Hemoglobin 28.0 27.0-33.0 pg Mean Corpuscular Hemoglobin Concent 32.6 32.0-36.0 g/dL Red Cell Distribution Width 16.4 H 11.0-15.5 % Platelet Count 318 130-400 K/uL Mean Platelet Volume 8.8 7.5-10.5 fL Nucleated Red Blood Cells 0.0 0.0-0.19 % Sodium Level 140 136-145 mmol/L Potassium Level 4.2 3.5-5.1 mmol/L Chloride Level 103 101-111 mmol/L Carbon Dioxide Level 30 21-32 mmol/L Blood Urea Nitrogen 14 7-18 mg/dL Creatinine 0.6 0.5-1.0 mg/dL Glomerular Filtration Rate Calc 96 >90 mL/min Random Glucose 134 H 70-105 mg/dL Total Calcium 9.2 8.5-10.1 mg/dL Influenza Type A Antigen Negative For Type A NEGATIVE Influenza Type B Antigen Negative For Type B NEGATIVE SARS-CoV-2 Antigen (Rapid) PRESUMPTIVE NEGATIVE NEGATIVE Immature Granulocyte % (Auto) 0.8 0-1 % Neutrophils (%) (Auto) 77.9 H 40.0-77.0 % Lymphocytes (%) (Auto) 17.7 L 21.0-51.0 % Monocytes (%) (Auto) 2.5 L 3.0-13.0 % Eosinophils (%) (Auto) 0.6 0.0-8.0 % Basophils (%) (Auto) 0.5 0.0-5.0 % Neutrophils # (Auto) 6.2 1.8-7.7 K/uL Lymphocytes # (Auto) 1.4 1.0-4.8 K/uL Monocytes # (Auto) 0.2 0.1-1.0 K/uL Eosinophils # (Auto) 0.05 0.00-0.70 K/uL Basophils # (Auto) 0.04 0.00-0.20 K/uL Absolute Immature Granulocyte (auto 0.06 0-1 K/uL Current Medications Medications (Trade) Dose Ordered Sig/Liz Route PRN Reason Start Time Stop Time Status Last Admin Dose Admin Acetaminophen/ Codeine Phosphate (TYLenol-coDEINE TAB) 1 tab Q6H PRN PO MODERATE PAIN (4-6) 12/23/24 15:00 12/23/24 14:54 DC Acetaminophen/ Hydrocodone Bitart (NORco 5/325MG) 1 tab Q6H PRN PO MODERATE PAIN (4-6) 12/27/24 14:30 12/27/24 14:21 DC Albuterol (DUOneb) 1 UDVIAL Q6H PRN IH SHORTNESS OF BREATH 12/23/24 13:00 01/22/25 12:59 Albuterol (DUOneb) 1 UDVIAL I0HCIIF IH 12/23/24 18:00 01/22/25 17:59 12/29/24 06:42 1 UDVIAL Albuterol (DUOneb) 1 UDVIAL G8DOCAT IH 12/24/24 13:00 12/24/24 12:52 DC Atorvastatin Calcium (LIPItor 10MG) 10 mg HS PO 12/24/24 21:00 01/23/25 20:59 12/28/24 20:48 10 MG Cyclobenzaprine HCl (Cyclobenzaprine HCl) 10 mg TID PO 12/23/24 21:00 01/22/25 20:59 12/29/24 09:28 10 MG Dextrose (D50w) 50 ml AD PRN IV HYPOGLYCEMIA PROTOCOL 12/24/24 07:00 01/23/25 06:59 Docusate Sodium (COLace 100MG CAP) 100 mg BID PO 12/27/24 21:00 01/26/25 20:59 12/29/24 09:28 100 MG Enoxaparin Sodium (Lovenox) 30 mg BID SQ 12/25/24 21:00 01/24/25 20:59 12/29/24 09:29 30 MG Enoxaparin Sodium (Lovenox) 40 mg DAILY SQ 12/25/24 10:30 12/25/24 16:39 DC 12/25/24 12:01 40 MG Ergocalciferol (Drisdol) 50,000 unit QWEEK PO 12/24/24 09:00 01/23/25 08:59 12/26/24 08:53 50,000 UNIT Glucagon (Glucagon 1mg Kit) 1 mg AD PRN IM HYPOGLYCEMIA PROTOCOL 12/24/24 07:00 01/23/25 06:59 Home Med (Home Medication) DAILY IH 12/24/24 09:00 01/23/25 08:59 12/29/24 09:30 1 EACH Home Med (Home Medication) DAILY PO 12/24/24 09:00 01/23/25 08:59 12/29/24 09:30 1 EACH Home Med (Home Medication) DAILY PO 12/24/24 09:00 01/23/25 08:59 12/29/24 09:30 1 EACH Home Med (Home Medication) DAILY PO 12/24/24 09:00 01/23/25 08:59 12/29/24 09:31 1 EACH Home Med (Home Medication) DAILY PO 12/24/24 09:00 01/23/25 08:59 Hydralazine HCl (APRESOLine 20MG INJ) 5 mg Q6H PRN IV ADMINISTER FOR SBP > 160 12/25/24 08:30 01/24/25 08:29 12/25/24 16:30 5 MG Hydromorphone HCl (DiLAUDid 0.5MG INJ) 0.2 mg Q6H PRN IVP SEVERE PAIN (7-10) 12/27/24 14:30 12/28/24 13:17 DC 12/27/24 22:45 0.2 MG Hydromorphone HCl (DiLAUDid 0.5MG INJ) 0.5 mg Q4H PRN IVP SEVERE PAIN (7-10) 12/24/24 14:00 12/27/24 14:04 DC 12/27/24 14:01 0.5 MG Insulin Human Regular (humuLIN R 100 UNIT/ML 3ML) INSULIN SLIDING SCAL... ACHS SQ 12/24/24 07:30 01/23/25 07:29 Ketorolac Tromethamine (toRADol) 15 mg Q6H PRN IV MODERATE PAIN (4-6) IF NPO 12/23/24 15:00 12/25/24 10:28 DC 12/24/24 18:14 15 MG Ketorolac Tromethamine (toRADol) 30 mg Q6H PRN IV MODERATE PAIN (4-6) IF NPO 12/25/24 15:00 12/30/24 14:59 12/28/24 23:55 30 MG Losartan Potassium (CozAAR 100MG TAB) 100 mg DAILY PO 12/24/24 09:00 01/23/25 08:59 12/29/24 09:28 100 MG Magnesium Sulfate 50 ml @ 0 mls/hr PROTOCOL PRN IV OTHER [SEE ORDER COMMENTS] 12/24/24 07:00 01/23/25 06:59 12/26/24 08:51 25 MLS/HR Methylprednisolone Sodium Succinate (Solu-medROL 40MG) 40 mg Q6H IVP 12/27/24 19:00 12/28/24 00:52 DC 12/27/24 22:39 40 MG Methylprednisolone Sodium Succinate (Solu-medROL 40MG) 40 mg Q6H IVP 12/28/24 05:00 01/27/25 04:59 12/29/24 06:11 40 MG Morphine Sulfate (morPHINE 4MG SYG) 4 mg Q4H PRN IVP SEVERE PAIN (7-10) 12/23/24 15:00 12/24/24 13:46 DC 12/24/24 08:04 4 MG Nicotine (Nicoderm) 21 mg DAILY TD 12/24/24 09:00 01/23/25 08:59 12/29/24 09:29 21 MG Pantoprazole Sodium (PROTonix 40MG TAB) 40 mg DAILY PO 12/24/24 09:00 01/23/25 08:59 12/29/24 09:28 40 MG Piperacillin Sod/ Tazobactam Sod (Zosyn 3.375gm+NS 50ml) 3.375 gm Q8H IV 12/25/24 10:30 01/04/25 10:29 12/29/24 03:31 3.375 GM Potassium Chloride 100 ml @ 100 mls/hr AD PRN IV POTASSIUM PROTOCOL 12/24/24 07:00 01/23/25 06:59 Potassium Chloride (K-Dur/Klor-Con 20meq) 20 meq AD PRN PO POTASSIUM PROTOCOL 12/24/24 07:00 01/23/25 06:59 Potassium Chloride (KCl 10% Elixir 20meq/15ml) 20 meq AD PRN PO POTASSIUM PROTOCOL 12/24/24 07:00 01/23/25 06:59 Tramadol HCl (UltRAM) 50 mg Q6H PRN PO MODERATE PAIN (4-6) 12/24/24 01:00 12/29/24 00:59 DC 12/28/24 17:43 50 MG Vitamin B Complex (Vitamin B-12) 500 mcg DAILY PO 12/24/24 09:00 01/23/25 08:59 12/29/24 09:28 500 MCG DIAGNOSTICS / RADIOLOGY: [ ] ASSESSMENT: Ventral hernia S/P Laparoscopic lysis of adhesions converted to open ventral hernia repair with mesh incarcerated POA Diabetes type 2 POA Hypertension POA Hyperlipidemia POA COPD on home O2 as needed POA Morbid obesity POA Nicotine dependence POA Possible developing pneumoniae PLAN: Patient is status post laparoscopic lysis of adhesions, converted to open ventral hernia repair with mesh of hernia incarcerated 12/23/2024, tolerated the procedure well. Chest x-ray showing mild bibasilar airspace disease right greater than left, may reflect pneumoniae, suspect small right pleural effusion. Start the patient on Zosyn IV. Pulmonary is on board. CT chest concerning for pneumonia versus other non malignant process as well as a small mass at T12 with recommendations for MRI with and without contrast is shows malignancy. Dr Fonseca on the case, we will follow his recommendation. NEURO: Minimize central acting medications as possible. Fall Precautions. Well lit room through the day and minimize interruptions through the night to prevent acute delirium. Obtain MRI of the thoracic spine with and without IV contrast Discontinue IV Dilaudid Continue Tylenol, Toradol and Ultram p.r.n. for pain PULMONARY: Supplemental 02 as needed Maintain aspiration precautions at all times Follow up with Pulmonary Medicine, appreciate assistance CARDIOVASCULAR: Follow hemodynamics. Vital signs per facility protocol GI & NUTRITION: Continue nutritional support Aspirations precautions Prokinetic agents and laxatives as needed KIDNEYS & ELECTROLYTES: Strict monitoring of intake and output Daily weights Avoid nephrotoxic agents Monitor electrolytes and replace as needed ENDOCRINE: Maintain blood glucose between 100-180 at all times. Insulin sliding scale for blood glucose management Hypoglycemia and hyperglycemia protocol in place INFECTIOUS DISEASE: Trend temperature, WBC Continue Zosyn for now HEMATOLOGY & COAGULATION: Monitor H&H. Keep Hgb > 7 Transfuse 1 unit of PRBC for Hgb < 7 Transfuse 1 pack of platelets of platelets < 20, 000 Watch for any signs and symptoms of bleeding Follow up with heme oncology -obtain thoracic spinal MRI -obtain biopsy Follow up with Neurosurgery -obtain thoracic MRI SKIN: Pressure ulcer prevention per facility protocol ORTHO/REHAB Continue PT/OT Supportive measures: Continue GI and DVT prophylaxis with pantoprazole and Lovenox respectively All questions answered time spent: > 35 min ATTESTATION BY PHYSICIAN I have seen and examined the patient. I reviewed the documentation, medical decision making, and treatment plan as noted by the mid-level provider above. I agree with the findings and plan of care. Nella Coe MD, [facility] Dec 29, 2024 10:26
--- NOTE | 2024-12-29 12:54 | HMCIMG ---
EXAM: MR Thoracic Spine Without and with Intravenous Contrast. CLINICAL HISTORY: Spinal cord tumor TECHNIQUE: Magnetic resonance images of the thoracic spine in multiple planes. Pre-and postcontrast images were obtained. CONTRAST: 20 mL Claviscan COMPARISON: None. FINDINGS: The cervicothoracic and thoracolumbar junction are intact. An expansile lytic lesion involving the left lateral aspect of the body of the T11 vertebra and involving the left pedicle and lamina of the T11 vertebra possibility of osteoblastoma. Another differential could be plasmacytoma. Pathological anterior wedge compression fracture of the T11 thoracic vertebra with bone marrow edema. Rest of the visualized thoracic vertebrae are normal in height and demonstrate normal marrow signal intensity. Normal marrow signal of the vertebrae. No abnormal signal involves the thoracic cord. No abnormal extra-axial masses are present. The prevertebral and paravertebral soft tissues are within normal limits. [id number] findings are as follows: C7-T1: No disc bulge or herniation. No neural foraminal, lateral recess or spinal canal stenosis. T1-T2: No disc bulge or herniation. No neural foraminal, lateral recess or spinal canal stenosis. T2-T3: No disc bulge or herniation. No neural foraminal, lateral recess or spinal canal stenosis. T3-T4: No disc bulge or herniation. No neural foraminal, lateral recess or spinal canal stenosis. T4-T5: No disc bulge or herniation. No neural foraminal, lateral recess or spinal canal stenosis. T5-T6: No disc bulge or herniation. No neural foraminal, lateral recess or spinal canal stenosis. T6-T7: No disc bulge or herniation. No neural foraminal, lateral recess or spinal canal stenosis. T7-T8: No disc bulge or herniation. No neural foraminal, lateral recess or spinal canal stenosis. T8-T9: No disc bulge or herniation. No neural foraminal, lateral recess or spinal canal stenosis. T9-T10: No disc bulge or herniation. No neural foraminal, lateral recess or spinal canal stenosis. T10-T11: No disc bulge or herniation. An expansile lytic lesion involving the T11 thoracic vertebral body, pedicle, and lamina is probable osteoblastoma or plasmacytoma. Mild left facet arthropathy and mild narrowing of the left neural foramina. Abutment of the left exiting T10 nerve root. T11-T12: An expansile lytic lesion involving the left lateral aspect of the body of the T11 vertebra (4.7 x 3.4 cm) and involving the left pedicle and lamina of the T11 vertebra possibility of osteoblastoma. Another differential could be plasmacytoma. Pathological anterior wedge compression fracture of the T11 thoracic vertebra with bone marrow edema. T12-L1: No disc bulge or herniation. No neural foraminal, lateral recess or spinal canal stenosis. Postcontrast imaging reveals mild enhancement of the expansile lytic lesion in the T11 thoracic vertebra. No abnormal enhancement of the spinal cord and meninges or paravertebral soft tissue. Subsegmental atelectasis in the bilateral lower lobes. IMPRESSION: An expansile lytic lesion involving the left lateral aspect of the body of the T11 vertebra (4.7 x 3.4 cm) and involving the left pedicle and lamina of the T11 vertebra, with the possibility of osteoblastoma. Another differential could be plasmacytoma. Possibility of metastasis appears less probable. Pathological anterior wedge compression fracture of the T11 thoracic vertebra with bone marrow edema. Postcontrast imaging reveals mild enhancement of the expansile lytic lesion in the T11 thoracic vertebra. No abnormal enhancement of the spinal cord and meninges or paravertebral soft tissue. No significant disc bulges in the thoracic spine or neural foraminal narrowing. /[place]
--- NOTE | 2024-12-29 13:18 | NUR ---
Discharge Planning: Patient accepted at [facility]. LSO brace in place. Continues on iv abx. Still pending respiratory cultures and Thoracic Spine MRI results.
--- NOTE | 2024-12-29 15:30 | PN ---
[facility] PROGRESS NOTE Date Patient Seen: Dec 29, 2024 Time of Visit: 1057 Supervising Physician: Dr. Carr Inpatient Consults: BIS PROBLEM LIST: 1. Acute hypoxic respiratory failure 2. Bilateral pneumonia worse on the Right 3. COPD on home O2 4. Tobacco abuse 5. Morbid obesity 6. Obstructive sleep apnea undiagnosed & untreated -STOP-BANG SCORE 5 Point, High Risk of KEN 7. 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 RECOMMENDATIONS: Sputum culture pending Consult Neurosurgery CPAP, settings: 8 cm 30% FiO2. Continue breathing treatments Continue IS Continue Solu-Medrol 40 mg Q six hours Continue with antibiotics Zosyn 3.375 g IV q.8 hours. Smoking sensation, Nicoderm 21 mcg patch daily Continue to monitor respiratory status closely Maintain adequate oxygenation Keep O2 sats greater or equal to 90% Aspiration precautions Dispo per primary team INTERVAL HISTORY: 12/27 patient was seen and examined by bedside with no family present. Patient's labs this morning unremarkable. At time of visit patient has no specific complaints. Patient denies any chest pain or shortness of breadth at this time. Patient denies any nausea vomiting or abdominal pain. Patient currently on4 L nasal cannula appears to be tolerating well patient does use home oxygen. CT chest reviewed by supervising physician and noted to have pneumonia recommendations continue with current IV antibiotics we will start patient on Solu-Medrol 40 Q six patient will continue with IS and nebs. We will continue to monitor patient closely. Dispo per primary team 12/28 patient was seen and examined by bedside with family present. At time of visit patient has no specific complaints. Remains on her baseline with FiO2 at 4 L. patient denies any chest pain or shortness of breadth. Patient does report respiratory has improved from yesterday with the initiation of the steroids. At this time we will order a COVID and flu tests along with sputum culture and follow up with results. As per primary nurse no acute events to be reported at this time. Dispo per primary team 12/29 patient was seen and examined at bedside no family present. Patient's COVID and flu were negative. Patient currently pending sputum culture we will follow up with results. Patient remains on 4 L nasal cannula this is patient's baseline. At time of visit patient denies any chest pain or shortness of breadth. Denies nausea vomiting or abdominal pain. We will follow up with the recommendations from Neurosurgery in regards to lesion found on MRI. REVIEW OF SYSTEMS: 12 point ROS reviewed with patient. Pertinent positives mentioned above. Otherwise negative. PHYSICAL EXAM: GENERAL: alert, weak, awake oriented x 3 HEENT: EOMI, Sclera non icteric, moist mucosa NECK: Supple, no JVD, trachea midline LUNGS: Diminished breath sounds bilaterally. wheezes upper lobes HEART: Regular rate and rhythm. Normal S1 and S2, without murmurs ABD: Abdomen soft, nontender. Bowel sounds present EXT: No clubbing cyanosis or edema NEURO: Alert and oriented to person, follows commands Vital Signs (last 8hr) Date Time Temp Pulse Resp B/P (MAP) Pulse Ox O2 Delivery O2 Flow Rate FiO2 12/29/24 15:19 98.1 80 19 138/79 92 Nasal Cannula 3.0 12/29/24 11:45 97.9 95 19 141/80 91 Nasal Cannula 2.0 12/29/24 11:25 78 18 12/29/24 11:24 78 20 N/Cannula Oximizer Hi LPM 3.0 32 12/29/24 07:48 97.7 81 18 152/68 92 Room Air LABS: Hematology Labs: Test 12/29/24 04:57 12/28/24 05:44 Range/Units White Blood Count 13.3 #H 4.8-10.8 K/uL Red Blood Count 5.03 4.00-5.50 MIL/uL Hemoglobin 14.1 12.0-16.0 g/dL Hematocrit 43.2 36-48 % Mean Corpuscular Volume 85.9 79-99 fL Mean Corpuscular Hemoglobin 28.0 27.0-33.0 pg Mean Corpuscular Hemoglobin Concent 32.6 32.0-36.0 g/dL Red Cell Distribution Width 16.4 H 11.0-15.5 % Platelet Count 318 130-400 K/uL Mean Platelet Volume 8.8 7.5-10.5 fL Nucleated Red Blood Cells 0.0 0.0-0.19 % Immature Granulocyte % (Auto) 0.8 0-1 % Neutrophils (%) (Auto) 77.9 H 40.0-77.0 % Lymphocytes (%) (Auto) 17.7 L 21.0-51.0 % Monocytes (%) (Auto) 2.5 L 3.0-13.0 % Eosinophils (%) (Auto) 0.6 0.0-8.0 % Basophils (%) (Auto) 0.5 0.0-5.0 % Neutrophils # (Auto) 6.2 1.8-7.7 K/uL Lymphocytes # (Auto) 1.4 1.0-4.8 K/uL Monocytes # (Auto) 0.2 0.1-1.0 K/uL Eosinophils # (Auto) 0.05 0.00-0.70 K/uL Basophils # (Auto) 0.04 0.00-0.20 K/uL Absolute Immature Granulocyte (auto 0.06 0-1 K/uL Chemistry Labs: Test 12/29/24 10:24 12/29/24 04:57 Range/Units Whole Blood Glucose 157 H 70-110 MG/DL Sodium Level 140 136-145 mmol/L Potassium Level 4.2 3.5-5.1 mmol/L Chloride Level 103 101-111 mmol/L Carbon Dioxide Level 30 21-32 mmol/L Blood Urea Nitrogen 14 7-18 mg/dL Creatinine 0.6 0.5-1.0 mg/dL Glomerular Filtration Rate Calc 96 >90 mL/min Random Glucose 134 H 70-105 mg/dL Total Calcium 9.2 8.5-10.1 mg/dL DIAGNOSTICS / RADIOLOGY RESULTS: na PLAN NEURO: Minimize central acting medications as possible. Maintain fall precautions, adequate lighting during the day PULMONARY: Supplemental 02 as needed. Maintain aspiration precautions at all times CARDIOVASCULAR: Follow hemodynamics. Vital signs per facility protocol GI & NUTRITION: Continue with nutritional support. Continue stool softeners and laxatives as needed. KIDNEYS & ELECTROLYTES: Strict monitoring of intake, output and overall fluid balance. Avoid nephrotoxic medications to the extent possible. Medications to be dosed according to renal function. Monitor electrolytes and replace as needed ENDOCRINE: Maintain blood glucose between 100-180 at all times. Hypoglycemia protocol in place INFECTIOUS DISEASE: Trend temperature, WBC and procalcitonin level Follow cultures, deescalate antibiotics as soon as possible. Panculture if new onset fever ONCOLOGY/HEMATOLOGY/COAGULATION: Monitor for s/s of bleeding Monitor hemoglobin, coagulation studies as needed SKIN: Pressure ulcer prevention per facility protocol Specialty mattress ORTHO/REHAB: Continue PT/OT Prophylaxis: Continue GI and DVT prophylaxis Code Status: Full Resuscitation Disposition: TBD Other: Case discussed with supervising physician plan of care agreed upon YA ARMENDARIZ [employer] Dec 29, 2024 15:30
--- NOTE | 2024-12-29 16:12 | PN ---
This is a 69-year-old female status post large ventral hernia repair postop day six Interval history: This 69-year-old female seen in her room resting From surgical standpoint patient has been doing very well but neurosurgery as well as Oncology team consulted and recommendations for biopsy has been noted. However concerns if patient can tolerate prone position rise and requesting permission from surgical team Patient discussed with Dr. Blanco and patient is able to undergo biopsies if she can tolerate positioning Physical exam General: Awake alert and oriented Heart: Regular rate and rhythm} Lungs: Clear to auscultation no distress Abdomen: [Soft, nontender, nondistended Assessment : This is a 69-year-old female status post large ventral hernia repair postop day six Plan: From surgical standpoint once patient is cleared by Neurosurgery and Oncology patient is cleared for discharge where she can follow up in outpatient setting Continue with diet as tolerated No heavy lifting Patient reminded on appropriate techniques and getting out of bed Strict compliance with the abdominal binder Dr. Blanco to be updated on patient's status Surgical case has been discussed with my supervising physician in the above plan was formulated and agreed upon We appreciate the hospitalist team for us to participate in patient's care. Greater than 45 minutes of time spent patient, reviewing chart, working on documentation Vitals/Labs Vital Signs Date Time Temp Pulse Resp B/P (MAP) Pulse Ox O2 Delivery O2 Flow Rate FiO2 12/29/24 15:19 98.1 80 19 138/79 92 Nasal Cannula 3.0 12/29/24 11:24 32 Laboratory Tests 12/29/24 04:57 Medications Current Medications Cefazolin Sodium 1 gm STK-MED ONCE .ROUTE; Start 12/23/24 at 07:25; Stop 12/23/24 at 07:25; Status DC Cefazolin Sodium 2 gm STK-MED ONCE .ROUTE; Start 12/23/24 at 07:25; Stop 12/23/24 at 07:25; Status DC Lactated Ringer's 1,000 ml @ As Directed STK-MED ONCE IV; Start 12/23/24 at 07:25; Stop 12/23/24 at 07:26; Status DC Albuterol 1 UDVIAL ONCE ONCE IH Last administered on 12/23/24at 13:51; Start 12/23/24 at 09:00; Stop 12/23/24 at 09:01; Status DC Albuterol 1 UDVIAL ONCE ONCE IH; Start 12/23/24 at 09:00; Stop 12/23/24 at 09:01; Status DC Lidocaine HCl 100 mg STK-MED ONCE .ROUTE; Start 12/23/24 at 08:55; Stop 12/23/24 at 08:55; Status DC Propofol 200 mg STK-MED ONCE IV; Start 12/23/24 at 08:55; Stop 12/23/24 at 08:55; Status DC Midazolam HCl 2 mg STK-MED ONCE .ROUTE; Start 12/23/24 at 08:55; Stop 12/23/24 at 08:55; Status DC Rocuronium Orange 50 mg STK-MED ONCE .ROUTE; Start 12/23/24 at 08:55; Stop 12/23/24 at 08:56; Status DC Fentanyl Citrate 100 mcg STK-MED ONCE .ROUTE; Start 12/23/24 at 08:57; Stop 12/23/24 at 08:57; Status DC Dexamethasone Sodium Phosphate 10 mg STK-MED ONCE .ROUTE; Start 12/23/24 at 09:16; Stop 12/23/24 at 09:16; Status DC Ondansetron HCl 4 mg STK-MED ONCE .ROUTE; Start 12/23/24 at 09:16; Stop 12/23/24 at 09:16; Status DC Rocuronium Orange 50 mg STK-MED ONCE .ROUTE; Start 12/23/24 at 09:21; Stop 12/23/24 at 09:21; Status DC Cefazolin Sodium 3 gm STK-MED ONCE IVPB Last administered on 12/23/24at 09:12; Start 12/23/24 at 09:12; Stop 12/23/24 at 09:43; Status DC Bupivacaine HCl 10 mg STK-MED ONCE IJ Last administered on 12/23/24at 08:47; Start 12/23/24 at 08:47; Stop 12/23/24 at 09:43; Status DC Fentanyl Citrate 100 mcg STK-MED ONCE .ROUTE; Start 12/23/24 at 09:46; Stop 12/23/24 at 09:46; Status DC Glycopyrrolate 1 mg STK-MED ONCE .ROUTE; Start 12/23/24 at 11:18; Stop 12/23/24 at 11:18; Status DC Neostigmine Methylsulfate 10 mg STK-MED ONCE IV; Start 12/23/24 at 11:18; Stop 12/23/24 at 11:19; Status DC Fentanyl Citrate 100 mcg STK-MED ONCE .ROUTE Last administered on 12/23/24at 11:41; Start 12/23/24 at 11:38; Stop 12/23/24 at 11:38; Status DC Fentanyl Citrate 100 mcg STK-MED ONCE .ROUTE Last administered on 12/23/24at 11:53; Start 12/23/24 at 11:49; Stop 12/23/24 at 11:50; Status DC Albuterol 1 UDVIAL ONCE ONCE IH Last administered on 12/23/24at 13:50; Start 12/23/24 at 12:30; Stop 12/23/24 at 12:31; Status DC Albuterol 1 UDVIAL [id number] IH Last administered on 12/29/24at 11:23; Start 12/23/24 at 18:00; Stop 01/22/25 at 17:59 Albuterol 1 UDVIAL Q6H PRN IH; Start 12/23/24 at 13:00; Stop 01/22/25 at 12:59 Nicotine 21 mg DAILY TD Last administered on 12/29/24at 09:29; Start 12/24/24 at 09:00; Stop 01/23/25 at 08:59 Morphine Sulfate 4 mg Q4H PRN IVP Last administered on 12/24/24at 08:04; Start 12/23/24 at 15:00; Stop 12/24/24 at 13:46; Status DC Ketorolac Tromethamine 15 mg Q6H PRN IV Last administered on 12/24/24at 18:14; Start 12/23/24 at 15:00; Stop 12/25/24 at 10:28; Status DC Acetaminophen/ Codeine Phosphate 1 tab Q6H PRN PO; Start 12/23/24 at 15:00; Stop 12/23/24 at 14:54; Status DC Cyclobenzaprine HCl 10 mg TID PO Last administered on 12/29/24at 15:00; Start 12/23/24 at 21:00; Stop 01/22/25 at 20:59 Atorvastatin Calcium 10 mg HS PO Last administered on 12/28/24at 20:48; Start 12/24/24 at 21:00; Stop 01/23/25 at 20:59 Ergocalciferol 50,000 unit QWEEK PO Last administered on 12/26/24at 08:53; Start 12/24/24 at 09:00; Stop 01/23/25 at 08:59 Losartan Potassium 100 mg DAILY PO Last administered on 12/29/24 09:28; Start 12/24/24 at 09:00; Stop 01/23/25 at 08:59 Vitamin B Complex 500 mcg DAILY PO Last administered on 12/29/24at 09:28; Start 12/24/24 at 09:00; Stop 01/23/25 at 08:59 Home Med DAILY PO Last administered on 12/29/24 09:31; Start 12/24/24 at 09:00; Stop 01/23/25 at 08:59 Home Med DAILY IH Last administered on 12/29/24 09:30; Start 12/24/24 at 09:00; Stop 01/23/25 at 08:59 Home Med DAILY PO Last administered on 12/29/24at 09:30; Start 12/24/24 at 09:00; Stop 01/23/25 at 08:59 Home Med DAILY PO Last administered on 12/29/24at 09:30; Start 12/24/24 at 09:00; Stop 01/23/25 at 08:59 Home Med DAILY PO; Start 12/24/24 at 09:00; Stop 01/23/25 at 08:59 Tramadol HCl 50 mg Q6H PRN PO Last administered on 12/28/24at 17:43; Start 12/24/24 at 01:00; Stop 12/29/24 at 00:59; Status DC Pantoprazole Sodium 40 mg DAILY PO Last administered on 12/29/24 09:28; Start 12/24/24 at 09:00; Stop 01/23/25 at 08:59 Magnesium Sulfate 50 ml @ 0 mls/hr PROTOCOL PRN IV Last administered on 12/26/24at 08:51; Start 12/24/24 at 07:00; Stop 01/23/25 at 06:59 Potassium Chloride 100 ml @ 100 mls/hr AD PRN IV; Start 12/24/24 at 07:00; Stop 01/23/25 at 06:59 Potassium Chloride 20 meq AD PRN PO; Start 12/24/24 at 07:00; Stop 01/23/25 at 06:59 Potassium Chloride 20 meq AD PRN PO; Start 12/24/24 at 07:00; Stop 01/23/25 at 06:59 Insulin Human Regular INSULIN SLIDING SCAL... ACHS SQ; Start 12/24/24 at 07:30; Stop 01/23/25 at 07:29 Dextrose 50 ml AD PRN IV; Start 12/24/24 at 07:00; Stop 01/23/25 at 06:59 Glucagon 1 mg AD PRN IM; Start 12/24/24 at 07:00; Stop 01/23/25 at 06:59 Albuterol 1 UDVIAL [id number] IH; Start 12/24/24 at 13:00; Stop 12/24/24 at 12:52; Status DC Hydromorphone HCl 0.5 mg Q4H PRN IVP Last administered on 12/27/24at 14:01; Start 12/24/24 at 14:00; Stop 12/27/24 at 14:04; Status DC Hydralazine HCl 5 mg Q6H PRN IV Last administered on 12/25/24at 16:30; Start 12/25/24 at 08:30; Stop 01/24/25 at 08:29 Enoxaparin Sodium 40 mg DAILY SQ Last administered on 12/25/24at 12:01; Start 12/25/24 at 10:30; Stop 12/25/24 at 16:39; Status DC Piperacillin Sod/ Tazobactam Sod 3.375 gm Q8H IV Last administered on 12/29/24at 10:44; Start 12/25/24 at 10:30; Stop 01/04/25 at 10:29 Ketorolac Tromethamine 30 mg Q6H PRN IV Last administered on 12/28/24at 23:55; Start 12/25/24 at 15:00; Stop 12/30/24 at 14:59 Enoxaparin Sodium 30 mg BID SQ Last administered on 12/29/24at 09:29; Start 12/25/24 at 21:00; Stop 01/24/25 at 20:59 Acetaminophen/ Hydrocodone Bitart 1 tab Q6H PRN PO; Start 12/27/24 at 14:30; Stop 12/27/24 at 14:21; Status DC Hydromorphone HCl 0.2 mg Q6H PRN IVP Last administered on 12/27/24at 22:45; Start 12/27/24 at 14:30; Stop 12/28/24 at 13:17; Status DC Docusate Sodium 100 mg BID PO Last administered on 12/29/24at 09:28; Start 12/27/24 at 21:00; Stop 01/26/25 at 20:59 Methylprednisolone Sodium Succinate 40 mg Q6H IVP Last administered on 12/27/24at 22:39; Start 12/27/24 at 19:00; Stop 12/28/24 at 00:52; Status DC Methylprednisolone Sodium Succinate 40 mg Q6H IVP Last administered on 12/29/24at 10:44; Start 12/28/24 at 05:00; Stop 01/27/25 at 04:59 Gadoterate Meglumine 10 mmol STK-MED ONCE IV; Start 12/28/24 at 16:20; Stop 12/28/24 at 16:20; Status DC MCKENZIE MORA Jr. PAC Dec 29, 2024 16:12
--- NOTE | 2024-12-29 16:17 | DS ---
Discharge Summary Hospital Course Summary: REASON FOR ADMISSION: 69-year-old female with history of diabetes, hypertension, morbid obesity, COPD on home O2, and ventral hernia, admitted for elective ventral hernia repair. HOSPITAL COURSE: Surgical Course: - Underwent laparoscopic lysis of adhesions, converted to open ventral hernia repair with mesh (20 x 15 cm Nigerian cheese defect, incarcerated hernia) on 12/23/[address] Blanco. - Postoperative course initially notable for mild abdominal pain, managed with multimodal analgesia. - MATEO drain placed intraoperatively, with serosanguineous output, gradually decreasing. Medical Course: - Respiratory: - History of COPD on home O2. - Developed acute hypoxic respiratory failure postoperatively, requiring supplemental oxygen (34 L NC, baseline). - Imaging revealed new right lower lobe consolidation/atelectasis, concerning for pneumonia; started on IV Zosyn and Solu-Medrol. - Pulmonary consult obtained. - COVID and influenza testing negative; sputum culture pending at discharge. - Maintained O2 saturations ?90% on baseline O2 requirements. - Pain: - Postoperative pain managed with IV and oral analgesics, transitioned to oral regimen prior to discharge. - Glycemic Control: - Blood glucose managed with sliding scale insulin; no episodes of severe hypo/hyperglycemia. - Mobility/Rehabilitation: - PT/OT consulted; patient ambulating with walker, minimal assistance. - Discharge planning for jail facility (SNF) due to lack of home support. - Other Medical Issues: - Hypertension and hyperlipidemia managed with home medications. - DVT prophylaxis with Lovenox. - GI prophylaxis with pantoprazole. - Smoking cessation counseling and nicotine patch provided. Complications/New Diagnoses: - Thoracic Spine Lesion: - CT chest without contrast performed for workup of atelectasis revealed moderate right lower lung consolidation, small left lower lung consolidation, right-sided pleural effusion, mediastinal lymphadenopathy, and a new soft tissue mass in the T12 vertebral body with moderate erosive changes and pathologic fracture, with extension into the spinal canal and left paraspinal soft tissues. - Oncology consultation obtained. Dr. Stroud evaluated the patient and reviewed imaging. - MRI thoracic spine with and without contrast confirmed an expansile lytic lesion involving the left lateral aspect of the T11 vertebral body, left pedicle, and lamina (4.7 x 3.4 cm), with pathological anterior wedge compression fracture and bone marrow edema. Differential includes osteoblastoma, plasmacytoma, less likely metastasis. - Dr. Stroud recommends biopsy of the lesion for definitive diagnosis. Plan for further evaluation and management as outpatient/SNF. DISCHARGE CONDITION: - Afebrile, hemodynamically stable. - Tolerating diet, passing gas, voiding spontaneously. - Ambulating with walker, minimal assistance. - Incisions clean, dry, and intact; MATEO drain removed or with minimal output. - On baseline O2 requirements. - No acute distress. DISCHARGE DIAGNOSES: Primary: - Status post open ventral hernia repair with mesh (incarcerated, Nigerian cheese defect) Secondary: - Acute hypoxic respiratory failure, improved - Bilateral pneumonia, right > left, improving - COPD on home O2 - Morbid obesity - Diabetes mellitus type 2 - Hypertension - Hyperlipidemia - Nicotine dependence - Obstructive sleep apnea, high risk (STOP-BANG 5) - Expansile lytic lesion of T11 vertebral body with pathologic fracture (pending biopsy; oncology and neurosurgery consulted) DISCHARGE MEDICATIONS: [Please refer to medication reconciliation sheet for full list of medications, doses, frequency, and duration. Medication reconciliation sheet personally f illed out by Daxa Hernandez NP.] FOLLOW-UP/RECOMMENDATIONS: - SNF placement for continued rehabilitation and jail care - Neurosurgery and oncology follow-up for T11 lesion and biopsy as recommended by Dr. Stroud - Pulmonary follow-up for COPD and pneumonia management - Monitor for signs of infection, respiratory distress, or neurological changes - Continue incentive spirometry, ambulation, and pulmonary hygiene - Monitor blood glucose and blood pressure - Outpatient labs and imaging as directed by consulting services PROGNOSIS: Good for surgical recovery. Prognosis for T11 lesion pending biopsy and further oncologic evaluation. DISCHARGE INSTRUCTIONS: Continue all medications as prescribed. Use O2 as needed to maintain saturations ?90%. Follow up with SNF medical team and consulting specialists. Monitor for fever, worsening pain, shortness of breath, or neurological symptoms and report immediately. Prepared by: Daxa Hernandez NP/MALENA/KAYLA Acute Care Nurse Practitioner [facility] Electronically Signed: [Date/Time] Co-Signed by: [Attending Physician, if required] Let me know if you need this in a different format or with further details. Application Security Developer(s): Dr. Valencia- Neurosurgeon Dr. Saravia- Onco Procedure(s): OPERATIVE REPORT Name: TWILA DOMINGUEZ Acct: [id number] MR: [id number] : 1955 Admit Date: 12/23/24 NATHALY BLANCO MD [facility] [address] [place] [address] Operative Note: DATE OF PROCEDURE: 12/23/24 SURGEON: NATHALY BLANCO MD FLOORING MACHINE OPERATOR: [] ANESTHESIA: General endotracheal ANESTHESIOLOGIST/NETWORK SUPPORT ANALYST: Aydin Gibbs CRNA PREOPERATIVE DIAGNOSIS: LOWER ABDOMEN VENTRAL HERNIA POSTOPERATIVE DIAGNOSIS: Large Nigerian cheese defect ventral hernia measuring 20 x 15 cm in size incarcerated SYNOPSIS: [] PROCEDURE: Laparoscopic lysis of adhesions, converted to open ventral hernia repair with mesh of hernia 20 x 15 cm incarcerated ESTIMATED BLOOD LOSS: 10 cc INDICATIONS: Patient with large ventral hernia very symptomatic needing repair Specimens removed: Hernia sac Devices left in place: 10 Ukrainian flat drain, Phasix mesh25 x 20 cm DESCRIPTION OF PROCEDURE: The patient is brought to the operating room placed on the operating table in a supine position. Once general endotracheal anesthesia was achieved patient's abdomen is prepped and draped in sterile fashion. I created a transverse incision at the left upper quadrant at jauregui's point. Under direct visualization with the Optiview went through the abdominal wall and entered the abdominal cavity. Obtain pneumoperitoneum. We then proceeded to place a 8 mm trocar in the right upper quadrant and one at the epigastrium. Switched out the 5 mm trocar in the left upper quadrant for an8 mm trocar. There was significant amount of omental adhesions to the abdominal wall. We proceeded to dock the robot and We then proceeded to take all the adhesions down with the scissors with cautery. Once all the adhesions were taken down we then evaluated the hernia. There was multiple hernias this was a Nigerian cheese defect. There were multiple smaller hernias of the midline and the larger one in the left lower quadrant. There was some small bowel incarcerated within the hernia in the left lower quadrant that was released with a very careful dissection with the scissors. We then proceeded to measure the defect with a ruler and it measured 20 x 15cm. This defect it was much too big to be able to repair robotically. Decision is made to convert to open hernia repair. We then proceeded to undock the robot. And remove all robotic instruments. I then proceeded to do a midline laparotomy incision dissected through the skin and subcutaneous tissue and entered the hernia sac. Then dissected the hernia sac off of the subcutaneous tissue and off of the fascia. Exposed all the fascia edges. And again measured the defect once they were all connected all the Nigerian cheese defects. In the again measured 20 x 15 cm. Because of patient's obesity and smoking she is a high risk for infections. And for recurrence decision is made to use a Phasix mesh and we selected the 25 x 20 cm. I then proceeded to secure the mesh with a trans fascial sutures with 1. Pr olene at 12, 3, 9 and 6:00 positions , and then used the absorbable Tacker to secure it in between the sutures. We then proceeded to primarily close the fascia with double-stranded 1. PDS in running fashion and it came together without any tension. I placed a 10 Ukrainian flat drain within the subcutaneous tissue secured it to the skin in the left lower quadrant with 2-0 nylon suture. We then proceeded to close the subcutaneous tissue with 3-0 Vicryl sutures. Skin was closed with 4-0 Monocryl running subcuticular fashion. Dermabond is applied over the top abdominal binder is placed. Patient tolerated the procedure well all counts correct x2 at the end of the procedure NATHALY BLANCO MD Dec 23, 2024 15:46 Electronically Signed by: NATHALY BLANCO MD12/23/24 1546 Electronically Co-Signed by: Assessment/Plan: ASSESSMENT: Ventral hernia S/P Laparoscopic lysis of adhesions converted to open ventral hernia repair with mesh incarcerated POA Diabetes type 2 POA Hypertension POA Hyperlipidemia POA COPD on home O2 as needed POA Morbid obesity POA Nicotine dependence POA Possible developing pneumoniae DISCHARGE DIAGNOSES: Primary: Status post open ventral hernia repair with mesh (incarcerated, Nigerian cheese defect) Secondary: Acute hypoxic respiratory failure, improved Bilateral pneumonia, right > left, improving COPD on home O2 Morbid obesity Diabetes mellitus type 2 Hypertension Hyperlipidemia Nicotine dependence Obstructive sleep apnea, high risk (STOP-BANG 5) T11 vertebral body lytic lesion with pathologic fracture (pending biopsy) FOLLOW-UP/RECOMMENDATIONS: SNF placement for continued rehabilitation and jail care Neurosurgery and oncology follow-up for T11 lesion and biopsy Pulmonary follow-up for COPD and pneumonia management Monitor for signs of infection, respiratory distress, or neurological changes Continue incentive spirometry, ambulation, and pulmonary hygiene Monitor blood glucose and blood pressure Outpatient labs and imaging as directed by consulting services PROGNOSIS: Good for surgical recovery. Prognosis for T11 lesion pending biopsy and further oncologic evaluation. Discharge Instructions: DISCHARGE CONDITION: Afebrile, hemodynamically stable. Tolerating diet, passing gas, voiding spontaneously. Ambulating with walker, minimal assistance. Incisions clean, dry, and intact; MATEO drain removed or with minimal output. On baseline O2 requirements. No acute distress DISCHARGE INSTRUCTIONS: Continue all medications as prescribed. Use O2 as needed to maintain saturations ?90%. Follow up with SNF medical team and consulting specialists. Monitor for fever, worsening pain, shortness of breath, or neurological symptoms and report immediately. Prepared by: Home Medications: Reported Medications Fish Oil/Dha/Epa (Fish Oil 1,200 mg Fish Oil) 1,200 Mg-144 Mg-216 Mg Capsule, 1 EACH PO DAILY, CAP 12/19/24 Ergocalciferol (Vitamin D2) (Vitamin D2) 1,250 Mcg (99348 Unit) Capsule, 1 CAP PO QWEEK 12/19/24 Linaclotide (Linzess) 290 Mcg Capsule, 1 CAP PO DAILY 12/19/24 Fluticasone/Vilanterol (Breo Ellipta 100-25 Mcg INH) 100 Mcg-25 Mcg/Dose Aer.pow.ba, 1 PUFF IH DAILY 12/19/24 Vitamin E Mixed (Vitamin E) 400 Unit Capsule, 1 CAP PO DAILY for 30 Days, #60 CAP 0 Refills 01/20/24 Cyanocobalamin (Vitamin B-12) (Vitamin B-12) 1,000 Mcg Capsule, 500 MCG PO DAILY, CAP 01/20/24 Atorvastatin Calcium (LIPITOR) 20 Mg Tab, 1 TAB PO HS for 30 Days, #30 TAB 0 Refills 01/20/24 Losartan Potassium (Losartan Potassium) 100 Mg Tablet, 1 TAB PO DAILY for 30 Days, #30 TAB 0 Refills 01/20/24 Multivits-Min/FA/Lycopene/Lut (Sentry Senior Tablet) 0.4 Mg-300 Mcg-250 Mcg Tablet, 1 EACH PO DAILY, TAB 01/20/24 Time spent arranging discharge: 31-60 minutes ATTESTATION BY PHYSICIAN I have seen and examined the patient. I reviewed the documentation, medical decision making, and treatment plan as noted by the mid-level provider above. I agree with the findings and plan of care. Nella Coe MD, [facility] Dec 29, 2024 16:17
--- NOTE | 2024-12-29 16:38 | NUR ---
BIOPSY SPOKE TO CHAPO HAMLIN VIA TELEPHONE AND GAVE OKAY FOR PT TO LAY ON ABDOMEN IF PT TOLERATES FOR POSSIBLE BIOPSY.
--- NOTE | 2024-12-29 16:57 | NUR ---
CLEARANCE SPOKE TO ANGELA THOMPSON. STATES PT IS CLEARED TO GO FROM [facility]AND[facility]. NO FURTHER ORDERS GIVEN.
--- NOTE | 2024-12-29 17:39 | NUR ---
MD CALL SPOKE TO DR. QUIROGA VIA TELEPHONE. INFORMED DR. CHAIDEZ RESULTED. DR. QUIROGA STATES HE WILL SEE PATIENT TOMORROW AND WILL DISCUSS POSSIBLE BIOPSY WITH PT TOMORROW. NO FURTHER ORDERS GIVEN AT THIS TIME.
--- NOTE | 2024-12-29 20:45 | PN ---
SUBJECTIVE: The patient remains stable from her breathing. She is awake, alert. 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 She is breathing better, not having any significant pain currently. PHYSICAL EXAMINATION: GENERAL: A pleasant woman on nasal cannula oxygen. Family is at the bedside. VITAL SIGNS: Blood pressure 139/80, pulse 79, respiration 20. HEENT: Benign. CHEST: Showed decreased breath sounds. HEART: Regular rate and rhythm. ABDOMEN: Soft. EXTREMITIES: Show edema. NEUROLOGIC: Alert and oriented. IMPRESSION: 1. Acute hypoxic respiratory failure. 2. Bilateral pneumonia. 3. Chronic obstructive pulmonary disease. 4. Tobacco abuse. 5. Obstructive sleep apnea. 6. 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 PLAN: Continue antibiotics. Continue steroids. Continue her treatment of her pulmonary problems. I confer with Dr. Valencia about timing of the biopsy. I think she definitely needs this diagnosed before she goes home. Her treatment plan, she is at high risk for spinal cord compression. TID: [id number] RECEIPT: [id number]
--- NOTE | 2024-12-29 21:00 | NUR ---
MEDS SHIFT ASSESSMENT DONE, PLEASE REFER TO CHART. DUE MEDS ADMINISTERED, TOLERATED WELL. KEPT RESTED AND COMFORTABLE IN BED. CALL LIGHT WITHIN REACH.
[2024-12-30] VITALS (12 sets, daily range): BP systolic 126–154; BP diastolic 73–90; PULSE 70–93; RESP 18–20; TEMP 97.5–97.9; O2SAT 94–98
[2024-12-30 05:19] LABS: NUCLEATED RED BLOOD CELLS 0.0 % (0.0-0.19); PLATELET COUNT (AUTO) 319.0 K/uL (130-400); RED BLOOD CELL COUNT(AUTO) 4.87 MIL/uL (4.00-5.50); RED CELL DISTRIBUTION WIDTH 16.6 % (11.0-15.5); WHITE BLOOD COUNT (AUTO) 13.8 K/uL (4.8-10.8)
[2024-12-30 05:47] LABS: CREATININE 0.5 mg/dL (0.5-1.0); GLOMERULAR FILTR. RATE CALC 100.0 mL/min (>90); GLUCOSE,RANDOM 129.0 mg/dL (70-105); SODIUM SERUM 141.0 mmol/L (136-145); UREA NITROGEN, BLOOD 16.0 mg/dL (7-18)
--- NOTE | 2024-12-30 05:50 | NUR ---
ROUNDS PT SLEPT AT INTERVALS DURING THE SHIFT. NO DISTRESS NOTED. KEPT UNDISTURBED FOR NOW. CALL LIGHT WITHIN REACH. FOR MORE CARE.
--- NOTE | 2024-12-30 09:22 | CONS ---
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 HISTORY OF PRESENT ILLNESS: A 69-year-old woman who was admitted for surgery and ventral hernia. He has had a complicated course with atelectasis versus right lower lobe pneumonia, acute respiratory failure. Course of workup, she had a CAT scan which showed tumor destroying T12. We were asked to see her for the same. It turns out she had an MRI at this facility in late November, which showed the same lesion but also suggested possibly extension to other vertebrae and metastasis to other bones. In any case, we were asked to address this situation. PAST MEDICAL HISTORY: Diabetes, hyperlipidemia, hypertension, COPD on home O2, left lower quadrant hernia, and diabetes type 2. PAST SURGICAL HISTORY: , hysterectomy, cholecystectomy, appendectomy, and hemicolectomy. MEDICATIONS: See intake sheet. ALLERGIES: CODEINE. FAMILY HISTORY: His father was my patient for many decades, hypertension, stroke, cardiovascular disease, asthma. SOCIAL HISTORY: He continues to smoke. REVIEW OF SYSTEMS: HEENT: Negative. CARDIOVASCULAR: No chest pain, palpitations, PND, pulmonary embolus, cough. GASTROINTESTINAL: abdominal situation. GENITOURINARY: No hematuria or dysuria. BACK: He does have some back pain. PHYSICAL EXAMINATION: GENERAL: Exam shows a pleasant woman. VITAL SIGNS: Blood pressure 125/63, pulse 88 and respirations 22. HEENT: Benign. CHEST: Clear. ABDOMEN: Soft. EXTREMITIES: Show edema. NEUROLOGIC: She moves her legs well. LABORATORY DATA: Lab reviewed: CBC 9.2, hemoglobin 17, and platelets 277,000. Chemistries: Liver chemistries were okay. IMAGING DATA: CT of the chest shows right lower lobe consolidation. Right pleural effusion shows a soft tissue mass at T12 extending into the canal. Previous MRI, I have reviewed from this facility last week of November, which does show the same thing plus destruction of the vertebra. It also shows extension at T11 and suggests some other metastasis as well. IMPRESSION: 1. Destructive lesion of the T-spine consistent with metastatic disease. 2. Status post ventral hernia repair, COPD, diabetes, hypertension, hyperlipidemia, other problems as listed. PLAN: 1. Planned postoperative care by Dr. Dimas and the medical team. I would consult neurosurgery right away. This tumor is invading the spine. 2. Ultimately need a biopsy for tissue diagnosis and also a PET scan which we discussed, which is not available in this facility, but I can do in the office. 3. Postoperative management per Dr. Dimas. RECOMMENDATIONS: Urgent neurosurgery consult today. Keep at bed rest for now. Continue other supportive measures and DVT prophylaxis. TID: [id number] RECEIPT: [id number]
--- NOTE | 2024-12-30 11:55 | PN ---
[facility] PROGRESS NOTE Date of Service: Dec 30, 2024 Time of Service: 11:50 SUBJECTIVE: 12/25 patient is seen and examined at bedside, case discussed with the RN, no acute events overnight, during my visit patient alert oriented x3, on supplemental oxygen via nasal cannula at 3 L, saturating 98%. Patient has a history of COPD, on chronic home oxygen at 3 L at home. Patient is status post laparoscopic lysis of adhesions, converted to open ventral hernia repair with mesh of hernia incarcerated 12/23/2024, tolerated the procedure well. Continue current pain medication with adjustment as needed. Continue supplemental oxygen via nasal cannula. Chest x-ray showing mild bibasilar airspace disease right greater than left, may reflect pneumoniae, suspect small right pleural effusion. Start the patient on Zosyn IV, we will request Pulmonary consult, monitor WBC in a.m.. Lovenox 40 mg subcutaneously daily, follow CBC transfuse as needed. Continue DuoNeb. Discussed with the patient, in agreement. 12/[address] chest without contrast concerning for pneumonia as well as a new soft tissue mass at T12 with moderate erosion, recommendations are to proceed with MRI of the thoracic spine with and without IV contrast 12/27 T12 mass is known to the patient. She would like heme oncology evaluation. We agreed heme oncology evaluation can be performed inpatient or outpatient/SNF. Patient is pending SNF placement. 12/28 patient continues to be in pain as expected due to her spinal mass. We are transitioning to oral pain regimen and she will be discharged soon. Spoke with the nurse about giving oral pain medications 12/29/24 Patient was seen in the room, she is aware of the incendental findings, MRI of thoracic has been reviewed. We will follow the recommendation from Dr. Fonseca, pending biopsy. 12/30 heme oncology recommending urgent neurosurgery evaluation for tumor invading the spine. REVIEW OF SYSTEMS CONSTITUTIONAL: Denies fevers, chills, or night sweats. No unintentional weight loss reported. NEUROLOGICAL: Denies headache, amaurosis fugax, motor weakness, sensory deficit, vertigo/spinning sensation, gait abnormalities, or tremors. ENT: No hearing loss, otalgia, otorrhea, rhinitis, rhinorrhea, hoarseness, or sore throat. CARDIOVASCULAR: Denies any exertional angina, dyspnea on exertion, orthopnea, paroxysmal nocturnal dyspnea, palpitations, life-threatening arrhythmias, claudication. PULMONARY: Denies any shortness of breath, cough, phlegm/sputum, hemoptysis, pleuritic chest pain. SLEEP: Denies morning headaches, daytime somnolence or napping. Denies difficulty falling asleep, staying asleep, waking from sleep. Denies knowledge of snoring. GASTROINTESTINAL: complain of mild abdominal pain Denies any type of dysphagia to either liquids or solids. Denies nausea, vomiting, pyrosis, early satiety,diarrhea, constipation, or changes in stool consistency or caliber. Denies coffee-ground emesis, hematemesis, hematochezia, or melanotic stools. GENITOURINARY: Denies frequency, urgency, nocturia, hematuria or incontinence (Storage/Irritative symptoms.) Low urinary stream, straining to void, urinary intermittency or hesitancy, splitting of the voiding stream, terminal dribbling. ENDOCRINOLOGIC: Denies polyuria, polydipsia, polyphagia or heat/cold intolerances. HEMATOLOGIC: Denies thrombophilia/previous clots, or coagulopathy/bleeding disorders. ONCOLOGIC: Denies personal history of malignancy. DERMATOLOGIC: Denies rashes or pruritus. PSYCHIATRIC: Denies any suicidal or homicidal ideation. Denies hallucinations. PHYSICAL EXAM GENERAL APPEARANCE: The patient is awake, alert, and oriented, in no acute cardiopulmonary distress. NEUROLOGICAL: Cranial nerves II-XII grossly intact. Motor is 5/5 in bilateral upper and lower extremities proximal to distal. No sensory deficits. HEENT: Face is symmetric. Pupils are equal and reactive. Extraocular movements are intact. NECK: Supple. No JVD. No thyromegaly. No submental, submandibular, pre-/postau ricular, occipital or supraclavicular lymphadenopathy. CHEST: Normal chest expansion. No Telemetry. LUNGS: Absence of any rales, rhonchi or any wheezing. CARDIOVASCULAR: Regular. S1 and S2 normal. No appreciable rubs, murmurs or gallops. ABDOMEN: + MATEO Soft and nondistended. There is no rebound, voluntary guarding, or rigidity. : Deferred. No Palomo. EXTREMITIES: Non-edematous and not cyanotic. No clubbing. Good capillary refill. SKIN: No skin breakdown. Vital Signs (last 8hr) Date Time Temp Pulse Resp B/P (MAP) Pulse Ox O2 Delivery O2 Flow Rate FiO2 12/30/24 11:13 80 20 12/30/24 08:00 97.9 70 18 141/90 93 Nasal Cannula 3.0 12/30/24 06:37 75 18 N/Cannula Oximizer Hi LPM 3.0 32 12/30/24 06:37 75 18 12/30/24 04:50 97.9 82 18 137/73 95 Room Air LABS: Laboratory: Test 12/30/24 10:07 12/30/24 05:06 12/28/24 18:02 Range/Units Whole Blood Glucose 156 H 70-110 MG/DL White Blood Count 13.8 H 4.8-10.8 K/uL Red Blood Count 4.87 4.00-5.50 MIL/uL Hemoglobin 13.6 12.0-16.0 g/dL Hematocrit 41.8 36-48 % Mean Corpuscular Volume 85.8 79-99 fL Mean Corpuscular Hemoglobin 27.9 27.0-33.0 pg Mean Corpuscular Hemoglobin Concent 32.5 32.0-36.0 g/dL Red Cell Distribution Width 16.6 H 11.0-15.5 % Platelet Count 319 130-400 K/uL Mean Platelet Volume 8.9 7.5-10.5 fL Nucleated Red Blood Cells 0.0 0.0-0.19 % Sodium Level 141 136-145 mmol/L Potassium Level 4.7 3.5-5.1 mmol/L Chloride Level 104 101-111 mmol/L Carbon Dioxide Level 31 21-32 mmol/L Blood Urea Nitrogen 16 7-18 mg/dL Creatinine 0.5 0.5-1.0 mg/dL Glomerular Filtration Rate Calc 100 >90 mL/min Random Glucose 129 H 70-105 mg/dL Total Calcium 9.1 8.5-10.1 mg/dL Influenza Type A Antigen Negative For Type A NEGATIVE Influenza Type B Antigen Negative For Type B NEGATIVE SARS-CoV-2 Antigen (Rapid) PRESUMPTIVE NEGATIVE NEGATIVE Current Medications Medications (Trade) Dose Ordered Sig/Liz Route PRN Reason Start Time Stop Time Status Last Admin Dose Admin Acetaminophen/ Codeine Phosphate (TYLenol-coDEINE TAB) 1 tab Q6H PRN PO MODERATE PAIN (4-6) 12/23/24 15:00 12/23/24 14:54 DC Acetaminophen/ Hydrocodone Bitart (NORco 5/325MG) 1 tab Q6H PRN PO MODERATE PAIN (4-6) 12/27/24 14:30 12/27/24 14:21 DC Albuterol (DUOneb) 1 UDVIAL Q6H PRN IH SHORTNESS OF BREATH 12/23/24 13:00 01/22/25 12:59 Albuterol (DUOneb) 1 UDVIAL [id number] IH 12/23/24 18:00 01/22/25 17:59 12/30/24 11:13 1 UDVIAL Albuterol (DUOneb) 1 UDVIAL [id number] IH 12/24/24 13:00 12/24/24 12:52 DC Atorvastatin Calcium (LIPItor 10MG) 10 mg HS PO 12/24/24 21:00 01/23/25 20:59 12/29/24 20:59 10 MG Cyclobenzaprine HCl (Cyclobenzaprine HCl) 10 mg TID PO 12/23/24 21:00 01/22/25 20:59 12/30/24 09:17 10 MG Dextrose (D50w) 50 ml AD PRN IV HYPOGLYCEMIA PROTOCOL 12/24/24 07:00 01/23/25 06:59 Docusate Sodium (COLace 100MG CAP) 100 mg BID PO 12/27/24 21:00 01/26/25 20:59 12/30/24 09:17 100 MG Enoxaparin Sodium (Lovenox) 30 mg BID SQ 12/25/24 21:00 01/24/25 20:59 12/30/24 09:21 30 MG Enoxaparin Sodium (Lovenox) 40 mg DAILY SQ 12/25/24 10:30 12/25/24 16:39 DC 12/25/24 12:01 40 MG Ergocalciferol (Drisdol) 50,000 unit QWEEK PO 12/24/24 09:00 01/23/25 08:59 12/26/24 08:53 50,000 UNIT Glucagon (Glucagon 1mg Kit) 1 mg AD PRN IM HYPOGLYCEMIA PROTOCOL 12/24/24 07:00 01/23/25 06:59 Home Med (Home Medication) DAILY IH 12/24/24 09:00 01/23/25 08:59 12/30/24 09:15 1 EACH Home Med (Home Medication) DAILY PO 12/24/24 09:00 01/23/25 08:59 12/30/24 09:19 1 EACH Home Med (Home Medication) DAILY PO 12/24/24 09:00 01/23/25 08:59 12/30/24 09:19 1 EACH Home Med (Home Medication) DAILY PO 12/24/24 09:00 01/23/25 08:59 12/30/24 09:20 1 EACH Home Med (Home Medication) DAILY PO 12/24/24 09:00 01/23/25 08:59 Hydralazine HCl (APRESOLine 20MG INJ) 5 mg Q6H PRN IV ADMINISTER FOR SBP > 160 12/25/24 08:30 01/24/25 08:29 12/25/24 16:30 5 MG Hydromorphone HCl (DiLAUDid 0.5MG INJ) 0.2 mg Q6H PRN IVP SEVERE PAIN (7-10) 12/27/24 14:30 12/28/24 13:17 DC 12/27/24 22:45 0.2 MG Hydromorphone HCl (DiLAUDid 0.5MG INJ) 0.5 mg Q4H PRN IVP SEVERE PAIN (7-10) 12/24/24 14:00 12/27/24 14:04 DC 12/27/24 14:01 0.5 MG Insulin Human Regular (humuLIN R 100 UNIT/ML 3ML) INSULIN SLIDING SCAL... ACHS SQ 12/24/24 07:30 01/23/25 07:29 Ketorolac Tromethamine (toRADol) 15 mg Q6H PRN IV MODERATE PAIN (4-6) IF NPO 12/23/24 15:00 12/25/24 10:28 DC 12/24/24 18:14 15 MG Ketorolac Tromethamine (toRADol) 30 mg Q6H PRN IV MODERATE PAIN (4-6) IF NPO 12/25/24 15:00 12/30/24 14:59 12/29/24 17:50 30 MG Losartan Potassium (CozAAR 100MG TAB) 100 mg DAILY PO 12/24/24 09:00 01/23/25 08:59 12/30/24 09:17 100 MG Magnesium Sulfate 50 ml @ 0 mls/hr PROTOCOL PRN IV OTHER [SEE ORDER COMMENTS] 12/24/24 07:00 01/23/25 06:59 12/26/24 08:51 25 MLS/HR Methylprednisolone Sodium Succinate (Solu-medROL 40MG) 40 mg BID IVP 12/30/24 21:00 01/29/25 20:59 Methylprednisolone Sodium Succinate (Solu-medROL 40MG) 40 mg Q6H IVP 12/27/24 19:00 12/28/24 00:52 DC 12/27/24 22:39 40 MG Methylprednisolone Sodium Succinate (Solu-medROL 40MG) 40 mg Q6H IVP 12/28/24 05:00 12/30/24 10:30 DC 12/30/24 04:35 40 MG Morphine Sulfate (morPHINE 4MG SYG) 4 mg Q4H PRN IVP SEVERE PAIN (7-10) 12/23/24 15:00 12/24/24 13:46 DC 12/24/24 08:04 4 MG Nicotine (Nicoderm) 21 mg DAILY TD 12/24/24 09:00 01/23/25 08:59 12/30/24 09:21 21 MG Pantoprazole Sodium (PROTonix 40MG TAB) 40 mg DAILY PO 12/24/24 09:00 01/23/25 08:59 12/30/24 09:17 40 MG Piperacillin Sod/ Tazobactam Sod (Zosyn 3.375gm+NS 50ml) 3.375 gm Q8H IV 12/25/24 10:30 01/04/25 10:29 12/30/24 10:14 3.375 GM Potassium Chloride 100 ml @ 100 mls/hr AD PRN IV POTASSIUM PROTOCOL 12/24/24 07:00 01/23/25 06:59 Potassium Chloride (K-Dur/Klor-Con 20meq) 20 meq AD PRN PO POTASSIUM PROTOCOL 12/24/24 07:00 01/23/25 06:59 Potassium Chloride (KCl 10% Elixir 20meq/15ml) 20 meq AD PRN PO POTASSIUM PROTOCOL 12/24/24 07:00 01/23/25 06:59 Tramadol HCl (UltRAM) 50 mg Q6H PRN PO MODERATE PAIN (4-6) 12/24/24 01:00 12/29/24 00:59 DC 12/28/24 17:43 50 MG Vitamin B Complex (Vitamin B-12) 500 mcg DAILY PO 12/24/24 09:00 01/23/25 08:59 12/30/24 09:19 500 MCG DIAGNOSTICS / RADIOLOGY: [ ] ASSESSMENT: Primary: Status post open ventral hernia repair with mesh (incarcerated, [place] cheese defect) Metastatic invasion of the spine, POA Secondary: Acute hypoxic respiratory failure, improved Bilateral pneumonia, right > left, improving COPD on home O2 Morbid obesity Diabetes mellitus type 2 Hypertension Hyperlipidemia Nicotine dependence Obstructive sleep apnea, high risk (STOP-BANG 5) T11 vertebral body lytic lesion with pathologic fracture (pending biopsy) Plan: Continue Zosyn Trend WBCs Follow-up cultures Continue IV steroids O2 nasal cannula as needed Follow up with Pulmonary Medicine Continue atorvastatin, losartan Monitor blood pressure GI soft diet No need for GI prophylaxis No need for IV fluids Trend a.m. BMP Replete electrolytes as necessary DVT prophylaxis with Lovenox Trend a.m. CBC Follow up with heme oncology - neurosurgery evaluation today Follow up with Neurosurgery Full code Case was discussed with patient's nurse at bedside Attention time greater than 30 minutes CHARLINE SERRANO IV, MD Dec 30, 2024 11:55
--- NOTE | 2024-12-30 13:13 | PN ---
[facility] PROGRESS NOTE Date Patient Seen: Dec 30, 2024 Time of Visit: 1026 Supervising Physician: Dr. Carr Inpatient Consults: BIS PROBLEM LIST: 1. Acute hypoxic respiratory failure 2. Bilateral pneumonia worse on the Right 3. COPD on home O2 4. Tobacco abuse 5. Morbid obesity 6. Obstructive sleep apnea undiagnosed & untreated -STOP-BANG SCORE 5 Point, High Risk of KEN 7. 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 RECOMMENDATIONS: Sputum culture pending Neurosurgery recommendations biopsy scheduled for Thursday CPAP, settings: 8 cm 30% FiO2. Continue breathing treatments Continue IS Continue Solu-Medrol 40 mg Q 12 hours Continue with antibiotics Zosyn 3.375 g IV q.8 hours. Smoking sensation, Nicoderm 21 mcg patch daily Continue to monitor respiratory status closely Maintain adequate oxygenation Keep O2 sats greater or equal to 90% Aspiration precautions Dispo per primary team INTERVAL HISTORY: 12/30 Patient was seen and examined today with no new complaints. Daughter is at bedside. Patient remains on 4 L NC. Patient denies any shortness of breath or discomforts. Advised patient that steroid has been decreased to twice a day. Let patient know neurosurgeons plan is to do a biopsy on Thursday to the lesion found on MRI, patient was aware. As per primary nurse no acute events to be reports. REVIEW OF SYSTEMS: 12 point ROS reviewed with patient. Pertinent positives mentioned above. Otherwise negative. PHYSICAL EXAM: GENERAL: alert, weak, awake oriented x 3 HEENT: EOMI, Sclera non icteric, moist mucosa NECK: Supple, no JVD, trachea midline LUNGS: Diminished breath sounds bilaterally. wheezes upper lobes HEART: Regular rate and rhythm. Normal S1 and S2, without murmurs ABD: Abdomen soft, nontender. Bowel sounds present EXT: No clubbing cyanosis or edema NEURO: Alert and oriented to person, follows commands Vital Signs (last 8hr) Date Time Temp Pulse Resp B/P (MAP) Pulse Ox O2 Delivery O2 Flow Rate FiO2 12/30/24 12:00 97.5 76 18 142/80 96 Nasal Cannula 3.0 12/30/24 11:13 80 20 12/30/24 08:00 97.9 70 18 141/90 93 Nasal Cannula 3.0 12/30/24 06:37 75 18 N/Cannula Oximizer Hi LPM 3.0 32 12/30/24 06:37 75 18 LABS: Hematology Labs: Test 12/30/24 05:06 Range/Units White Blood Count 13.8 H 4.8-10.8 K/uL Red Blood Count 4.87 4.00-5.50 MIL/uL Hemoglobin 13.6 12.0-16.0 g/dL Hematocrit 41.8 36-48 % Mean Corpuscular Volume 85.8 79-99 fL Mean Corpuscular Hemoglobin 27.9 27.0-33.0 pg Mean Corpuscular Hemoglobin Concent 32.5 32.0-36.0 g/dL Red Cell Distribution Width 16.6 H 11.0-15.5 % Platelet Count 319 130-400 K/uL Mean Platelet Volume 8.9 7.5-10.5 fL Nucleated Red Blood Cells 0.0 0.0-0.19 % Chemistry Labs: Test 12/30/24 10:07 12/30/24 05:06 Range/Units Whole Blood Glucose 156 H 70-110 MG/DL Sodium Level 141 136-145 mmol/L Potassium Level 4.7 3.5-5.1 mmol/L Chloride Level 104 101-111 mmol/L Carbon Dioxide Level 31 21-32 mmol/L Blood Urea Nitrogen 16 7-18 mg/dL Creatinine 0.5 0.5-1.0 mg/dL Glomerular Filtration Rate Calc 100 >90 mL/min Random Glucose 129 H 70-105 mg/dL Total Calcium 9.1 8.5-10.1 mg/dL DIAGNOSTICS / RADIOLOGY RESULTS: n/a PLAN NEURO: Minimize central acting medications as possible. Maintain fall precautions, adequate lighting during the day PULMONARY: Supplemental 02 as needed. Maintain aspiration precautions at all times CARDIOVASCULAR: Follow hemodynamics. Vital signs per facility protocol GI & NUTRITION: Continue with nutritional support. Continue stool softeners and laxatives as needed. KIDNEYS & ELECTROLYTES: Strict monitoring of intake, output and overall fluid balance. Avoid nephrotoxic medications to the extent possible. Medications to be dosed according to renal function. Monitor electrolytes and replace as needed ENDOCRINE: Maintain blood glucose between 100-180 at all times. Hypoglycemia protocol in place INFECTIOUS DISEASE: Trend temperature, WBC and procalcitonin level Follow cultures, deescalate antibiotics as soon as possible. Panculture if new onset fever ONCOLOGY/HEMATOLOGY/COAGULATION: Monitor for s/s of bleeding Monitor hemoglobin, coagulation studies as needed SKIN: Pressure ulcer prevention per facility protocol Specialty mattress ORTHO/REHAB: Continue PT/OT Prophylaxis: Continue GI and DVT prophylaxis Code Status: Full Resuscitation Disposition: TBD Other: Case discussed with supervising physician plan of care agreed upon GERARDO COYNE APRN Dec 30, 2024 13:13
--- NOTE | 2024-12-30 17:36 | DS ---
The patient continues to be doing fairly well, tolerating diet, ambulating with assistance. At this time, the MRI of the thoracic spine was completed and indeed there is a lesion. There is an extensive lesion at T11 to the left side involving the pedicle and some of the subcutaneous tissue. We will consider biopsy if the patient agrees and depending upon the results, we will decide further treatment. The patient was addressed with the staff nurse present and we plan to do the biopsy on Thursday. TID: [id number] RECEIPT: [id number]
--- NOTE | 2024-12-30 17:46 | PN ---
pt eating regular food tolerating diet abd: benign; midline incision c/d/i; a little ecchymosis will transfer patient to medical service will sign off she can follow with dr. cordoba as scheduled for postop visit; keep candice drain in until she sees dr. cordoba Vitals/Labs Vital Signs Date Time Temp Pulse Resp B/P (MAP) Pulse Ox O2 Delivery O2 Flow Rate FiO2 12/30/24 16:00 97.5 83 18 154/77 95 Nasal Cannula 3.0 12/30/24 06:37 32 Laboratory Tests 12/30/24 05:06 Medications Current Medications Cefazolin Sodium 1 gm STK-MED ONCE .ROUTE; Start 12/23/24 at 07:25; Stop 12/23/24 at 07:25; Status DC Cefazolin Sodium 2 gm STK-MED ONCE .ROUTE; Start 12/23/24 at 07:25; Stop 12/23/24 at 07:25; Status DC Lactated Ringer's 1,000 ml @ As Directed STK-MED ONCE IV; Start 12/23/24 at 07:25; Stop 12/23/24 at 07:26; Status DC Albuterol 1 UDVIAL ONCE ONCE IH Last administered on 12/23/24at 13:51; Start 12/23/24 at 09:00; Stop 12/23/24 at 09:01; Status DC Albuterol 1 UDVIAL ONCE ONCE IH; Start 12/23/24 at 09:00; Stop 12/23/24 at 09:01; Status DC Lidocaine HCl 100 mg STK-MED ONCE .ROUTE; Start 12/23/24 at 08:55; Stop 12/23/24 at 08:55; Status DC Propofol 200 mg STK-MED ONCE IV; Start 12/23/24 at 08:55; Stop 12/23/24 at 08:55; Status DC Midazolam HCl 2 mg STK-MED ONCE .ROUTE; Start 12/23/24 at 08:55; Stop 12/23/24 at 08:55; Status DC Rocuronium [place] 50 mg STK-MED ONCE .ROUTE; Start 12/23/24 at 08:55; Stop 12/23/24 at 08:56; Status DC Fentanyl Citrate 100 mcg STK-MED ONCE .ROUTE; Start 12/23/24 at 08:57; Stop 12/23/24 at 08:57; Status DC Dexamethasone Sodium Phosphate 10 mg STK-MED ONCE .ROUTE; Start 12/23/24 at 09:16; Stop 12/23/24 at 09:16; Status DC Ondansetron HCl 4 mg STK-MED ONCE .ROUTE; Start 12/23/24 at 09:16; Stop 12/23/24 at 09:16; Status DC Rocuronium [place] 50 mg STK-MED ONCE .ROUTE; Start 12/23/24 at 09:21; Stop 12/23/24 at 09:21; Status DC Cefazolin Sodium 3 gm STK-MED ONCE IVPB Last administered on 12/23/24at 09:12; Start 12/23/24 at 09:12; Stop 12/23/24 at 09:43; Status DC Bupivacaine HCl 10 mg STK-MED ONCE IJ Last administered on 12/23/24at 08:47; Start 12/23/24 at 08:47; Stop 12/23/24 at 09:43; Status DC Fentanyl Citrate 100 mcg STK-MED ONCE .ROUTE; Start 12/23/24 at 09:46; Stop 12/23/24 at 09:46; Status DC Glycopyrrolate 1 mg STK-MED ONCE .ROUTE; Start 12/23/24 at 11:18; Stop 12/23/24 at 11:18; Status DC Neostigmine Methylsulfate 10 mg STK-MED ONCE IV; Start 12/23/24 at 11:18; Stop 12/23/24 at 11:19; Status DC Fentanyl Citrate 100 mcg STK-MED ONCE .ROUTE Last administered on 12/23/24at 11:41; Start 12/23/24 at 11:38; Stop 12/23/24 at 11:38; Status DC Fentanyl Citrate 100 mcg STK-MED ONCE .ROUTE Last administered on 12/23/24at 11:53; Start 12/23/24 at 11:49; Stop 12/23/24 at 11:50; Status DC Albuterol 1 UDVIAL ONCE ONCE IH Last administered on 12/23/24at 13:50; Start 12/23/24 at 12:30; Stop 12/23/24 at 12:31; Status DC Albuterol 1 UDVIAL [id number] IH Last administered on 12/30/24at 11:13; Start 12/23/24 at 18:00; Stop 01/22/25 at 17:59 Albuterol 1 UDVIAL Q6H PRN IH; Start 12/23/24 at 13:00; Stop 01/22/25 at 12:59 Nicotine 21 mg DAILY TD Last administered on 12/30/24at 09:21; Start 12/24/24 at 09:00; Stop 01/23/25 at 08:59 Morphine Sulfate 4 mg Q4H PRN IVP Last administered on 12/24/24at 08:04; Start 12/23/24 at 15:00; Stop 12/24/24 at 13:46; Status DC Ketorolac Tromethamine 15 mg Q6H PRN IV Last administered on 12/24/24at 18:14; Start 12/23/24 at 15:00; Stop 12/25/24 at 10:28; Status DC Acetaminophen/ Codeine Phosphate 1 tab Q6H PRN PO; Start 12/23/24 at 15:00; Stop 12/23/24 at 14:54; Status DC Cyclobenzaprine HCl 10 mg TID PO Last administered on 12/30/24at 14:08; Start 12/23/24 at 21:00; Stop 01/22/25 at 20:59 Atorvastatin Calcium 10 mg HS PO Last administered on 12/29/24at 20:59; Start 12/24/24 at 21:00; Stop 01/23/25 at 20:59 Ergocalciferol 50,000 unit QWEEK PO Last administered on 12/26/24at 08:53; Start 12/24/24 at 09:00; Stop 01/23/25 at 08:59 Losartan Potassium 100 mg DAILY PO Last administered on 12/30/24at 09:17; Start 12/24/24 at 09:00; Stop 01/23/25 at 08:59 Vitamin B Complex 500 mcg DAILY PO Last administered on 12/30/24at 09:19; Start 12/24/24 at 09:00; Stop 01/23/25 at 08:59 Home Med DAILY PO Last administered on 12/30/24at 09:19; Start 12/24/24 at 09:00; Stop 01/23/25 at 08:59 Home Med DAILY IH Last administered on 12/30/24at 09:15; Start 12/24/24 at 09:00; Stop 01/23/25 at 08:59 Home Med DAILY PO Last administered on 12/30/24at 09:20; Start 12/24/24 at 09:00; Stop 01/23/25 at 08:59 Home Med DAILY PO Last administered on 12/30/24at 09:19; Start 12/24/24 at 09:00; Stop 01/23/25 at 08:59 Home Med DAILY PO; Start 12/24/24 at 09:00; Stop 01/23/25 at 08:59 Tramadol HCl 50 mg Q6H PRN PO Last administered on 12/28/24at 17:43; Start 12/24/24 at 01:00; Stop 12/29/24 at 00:59; Status DC Pantoprazole Sodium 40 mg DAILY PO Last administered on 12/30/24at 09:17; Start 12/24/24 at 09:00; Stop 01/23/25 at 08:59 Magnesium Sulfate 50 ml @ 0 mls/hr PROTOCOL PRN IV Last administered on 12/26/24at 08:51; Start 12/24/24 at 07:00; Stop 01/23/25 at 06:59 Potassium Chloride 100 ml @ 100 mls/hr AD PRN IV; Start 12/24/24 at 07:00; Stop 01/23/25 at 06:59 Potassium Chloride 20 meq AD PRN PO; Start 12/24/24 at 07:00; Stop 01/23/25 at 06:59 Potassium Chloride 20 meq AD PRN PO; Start 12/24/24 at 07:00; Stop 01/23/25 at 06:59 Insulin Human Regular INSULIN SLIDING SCAL... ACHS SQ; Start 12/24/24 at 07:30; Stop 01/23/25 at 07:29 Dextrose 50 ml AD PRN IV; Start 12/24/24 at 07:00; Stop 01/23/25 at 06:59 Glucagon 1 mg AD PRN IM; Start 12/24/24 at 07:00; Stop 01/23/25 at 06:59 Albuterol 1 UDVIAL [id number] IH; Start 12/24/24 at 13:00; Stop 12/24/24 at 12:52; Status DC Hydromorphone HCl 0.5 mg Q4H PRN IVP Last administered on 12/27/24at 14:01; Start 12/24/24 at 14:00; Stop 12/27/24 at 14:04; Status DC Hydralazine HCl 5 mg Q6H PRN IV Last administered on 12/25/24at 16:30; Start 12/25/24 at 08:30; Stop 01/24/25 at 08:29 Enoxaparin Sodium 40 mg DAILY SQ Last administered on 12/25/24at 12:01; Start 12/25/24 at 10:30; Stop 12/25/24 at 16:39; Status DC Piperacillin Sod/ Tazobactam Sod 3.375 gm Q8H IV Last administered on 12/30/24at 10:14; Start 12/25/24 at 10:30; Stop 01/04/25 at 10:29 Ketorolac Tromethamine 30 mg Q6H PRN IV Last administered on 12/29/24at 17:50; Start 12/25/24 at 15:00; Stop 12/30/24 at 14:59; Status DC Enoxaparin Sodium 30 mg BID SQ Last administered on 12/30/24at 09:21; Start 12/25/24 at 21:00; Stop 01/24/25 at 20:59 Acetaminophen/ Hydrocodone Bitart 1 tab Q6H PRN PO; Start 12/27/24 at 14:30; Stop 12/27/24 at 14:21; Status DC Hydromorphone HCl 0.2 mg Q6H PRN IVP Last administered on 12/27/24at 22:45; Start 12/27/24 at 14:30; Stop 12/28/24 at 13:17; Status DC Docusate Sodium 100 mg BID PO Last administered on 12/30/24at 09:17; Start 12/27/24 at 21:00; Stop 01/26/25 at 20:59 Methylprednisolone Sodium Succinate 40 mg Q6H IVP Last administered on 12/27/24at 22:39; Start 12/27/24 at 19:00; Stop 12/28/24 at 00:52; Status DC Methylprednisolone Sodium Succinate 40 mg Q6H IVP Last administered on 12/30/24at 04:35; Start 12/28/24 at 05:00; Stop 12/30/24 at 10:30; Status DC Gadoterate Meglumine 10 mmol STK-MED ONCE IV; Start 12/28/24 at 16:20; Stop 12/28/24 at 16:20; Status DC Methylprednisolone Sodium Succinate 40 mg BID IVP; Start 12/30/24 at 21:00; Stop 01/29/25 at 20:59 Ibuprofen 400 mg Q6H PRN PO; Start 12/30/24 at 17:00; Stop 01/29/25 at 16:59 ZAINAB SCHMITZ MD Dec 30, 2024 17:46
[2024-12-30] MEDS: Solu-medROL 40MG VIAL IVP SCH (21:03)
--- NOTE | 2024-12-30 23:37 | PN ---
SUBJECTIVE: The patient is doing better breathing-aaron, she has no fever, on nasal cannula oxygen. 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 Workup is pending. She is not having significant pain at the moment. She says normally ibuprofen 800 takes care of her pain. PHYSICAL EXAMINATION: GENERAL: Shows a pleasant woman. VITAL SIGNS: Blood pressure 137/73, pulse 82, respirations 20. HEENT: Benign. CHEST: Clear. ABDOMEN: Soft. EXTREMITIES: Show edema. NEUROLOGIC: Alert and oriented. IMPRESSION: * Acute hypoxic respiratory failure. * Bilateral pneumonia. * Chronic obstructive pulmonary disease. * Tobacco abuse. * Obstructive sleep apnea. * Metastatic disease, CT spine, pathologic fracture. * Recent hernia repair. PLAN: To await Dr. Valencia for the biopsies. He is supposed to see the patient today. I reviewed all the findings with the patient. Await biopsy, so we can proceed. TID: [id number] RECEIPT: [id number]
[2024-12-31] VITALS (15 sets, daily range): BP systolic 136–157; BP diastolic 81–96; PULSE 70–91; RESP 18–20; TEMP 97.5–98.5; O2SAT 90–98
[2024-12-31 06:27] LABS: NUCLEATED RED BLOOD CELLS 0.0 % (0.0-0.19); PLATELET COUNT (AUTO) 150.0 K/uL (130-400); RED BLOOD CELL COUNT(AUTO) 4.93 MIL/uL (4.00-5.50); RED CELL DISTRIBUTION WIDTH 16.6 % (11.0-15.5); WHITE BLOOD COUNT (AUTO) 11.7 K/uL (4.8-10.8)
[2024-12-31 06:35] LABS: CREATININE 0.4 mg/dL (0.5-1.0); GLOMERULAR FILTR. RATE CALC 106.0 mL/min (>90); GLUCOSE,RANDOM 123.0 mg/dL (70-105); SODIUM SERUM 138.0 mmol/L (136-145); UREA NITROGEN, BLOOD 16.0 mg/dL (7-18)
--- NOTE | 2024-12-31 07:59 | NUR ---
A.M. LOVENOX DOSE HELD PER MD ORDER IN PREPARATION FOR SPINE BIOPSY.
--- NOTE | 2024-12-31 12:10 | PN ---
[facility] PROGRESS NOTE Date of Service: Dec 31, 2024 Time of Service: 12:04 SUBJECTIVE: 12/25 patient is seen and examined at bedside, case discussed with the RN, no acute events overnight, during my visit patient alert oriented x3, on supplemental oxygen via nasal cannula at 3 L, saturating 98%. Patient has a history of COPD, on chronic home oxygen at 3 L at home. Patient is status post laparoscopic lysis of adhesions, converted to open ventral hernia repair with mesh of hernia incarcerated 12/23/2024, tolerated the procedure well. Continue current pain medication with adjustment as needed. Continue supplemental oxygen via nasal cannula. Chest x-ray showing mild bibasilar airspace disease right greater than left, may reflect pneumoniae, suspect small right pleural effusion. Start the patient on Zosyn IV, we will request Pulmonary consult, monitor WBC in a.m.. Lovenox 40 mg subcutaneously daily, follow CBC transfuse as needed. Continue DuoNeb. Discussed with the patient, in agreement. 12/[address] chest without contrast concerning for pneumonia as well as a new soft tissue mass at T12 with moderate erosion, recommendations are to proceed with MRI of the thoracic spine with and without IV contrast 12/27 T12 mass is known to the patient. She would like heme oncology evaluation. We agreed heme oncology evaluation can be performed inpatient or outpatient/SNF. Patient is pending SNF placement. 12/28 patient continues to be in pain as expected due to her spinal mass. We are transitioning to oral pain regimen and she will be discharged soon. Spoke with the nurse about giving oral pain medications 12/29/24 Patient was seen in the room, she is aware of the incendental findings, MRI of thoracic has been reviewed. We will follow the recommendation from Dr. Fonseca, pending biopsy. 12/30 heme oncology recommending urgent neurosurgery evaluation for tumor invading the spine. 12/31 patient is pending spinal biopsy. White count is improving. We will maintain the patient on broad-spectrum IV antibiotics. REVIEW OF SYSTEMS CONSTITUTIONAL: Denies fevers, chills, or night sweats. No unintentional weight loss reported. NEUROLOGICAL: Denies headache, amaurosis fugax, motor weakness, sensory deficit, vertigo/spinning sensation, gait abnormalities, or tremors. ENT: No hearing loss, otalgia, otorrhea, rhinitis, rhinorrhea, hoarseness, or sore throat. CARDIOVASCULAR: Denies any exertional angina, dyspnea on exertion, orthopnea, paroxysmal nocturnal dyspnea, palpitations, life-threatening arrhythmias, claudication. PULMONARY: Denies any shortness of breath, cough, phlegm/sputum, hemoptysis, pleuritic chest pain. SLEEP: Denies morning headaches, daytime somnolence or napping. Denies difficulty falling asleep, staying asleep, waking from sleep. Denies knowledge of snoring. GASTROINTESTINAL: complain of mild abdominal pain Denies any type of dysphagia to either liquids or solids. Denies nausea, vomiting, pyrosis, early satiety,diarrhea, constipation, or changes in stool consistency or caliber. Denies coffee-ground emesis, hematemesis, hematochezia, or melanotic stools. GENITOURINARY: Denies frequency, urgency, nocturia, hematuria or incontinence (Storage/Irritative symptoms.) Low urinary stream, straining to void, urinary intermittency or hesitancy, splitting of the voiding stream, terminal dribbling. ENDOCRINOLOGIC: Denies polyuria, polydipsia, polyphagia or heat/cold intolerances. HEMATOLOGIC: Denies thrombophilia/previous clots, or coagulopathy/bleeding disorders. ONCOLOGIC: Denies personal history of malignancy. DERMATOLOGIC: Denies rashes or pruritus. PSYCHIATRIC: Denies any suicidal or homicidal ideation. Denies hallucinations. PHYSICAL EXAM GENERAL APPEARANCE: The patient is awake, alert, and oriented, in no acute cardiopulmonary distress. NEUROLOGICAL: Cranial nerves II-XII grossly intact. Motor is 5/5 in bilateral upper and lower extremities proximal to distal. No sensory deficits. HEENT: Face is symmetric. Pupils are equal and reactive. Extraocular movements are intact. NECK: Supple. No JVD. No thyromegaly. No submental, submandibular, pre-/po stauricular, occipital or supraclavicular lymphadenopathy. CHEST: Normal chest expansion. No Telemetry. LUNGS: Absence of any rales, rhonchi or any wheezing. CARDIOVASCULAR: Regular. S1 and S2 normal. No appreciable rubs, murmurs or gallops. ABDOMEN: + MATEO Soft and nondistended. There is no rebound, voluntary guarding, or rigidity. : Deferred. No Palomo. EXTREMITIES: Non-edematous and not cyanotic. No clubbing. Good capillary refill. SKIN: No skin breakdown. Vital Signs (last 8hr) Date Time Temp Pulse Resp B/P (MAP) Pulse Ox O2 Delivery O2 Flow Rate FiO2 12/31/24 11:39 98.2 79 18 136/86 90 Nasal Cannula 3.0 12/31/24 08:07 90 Nasal Cannula* 3 32 12/31/24 07:30 98.2 80 18 157/83 90 Nasal Cannula 3.0 12/31/24 07:06 75 18 N/Cannula Oximizer Hi LPM 3.0 32 12/31/24 07:06 75 18 12/31/24 04:34 98.2 70 18 138/92 98 Nasal Cannula LABS: Laboratory: Test 12/31/24 10:59 12/31/24 06:06 Range/Units Whole Blood Glucose 126 H 70-110 MG/DL White Blood Count 11.7 H 4.8-10.8 K/uL Red Blood Count 4.93 4.00-5.50 MIL/uL Hemoglobin 13.8 12.0-16.0 g/dL Hematocrit 42.1 36-48 % Mean Corpuscular Volume 85.4 79-99 fL Mean Corpuscular Hemoglobin 28.0 27.0-33.0 pg Mean Corpuscular Hemoglobin Concent 32.8 32.0-36.0 g/dL Red Cell Distribution Width 16.6 H 11.0-15.5 % Platelet Count 150 # 130-400 K/uL Mean Platelet Volume 9.3 7.5-10.5 fL Nucleated Red Blood Cells 0.0 0.0-0.19 % Sodium Level 138 136-145 mmol/L Potassium Level 4.0 3.5-5.1 mmol/L Chloride Level 104 101-111 mmol/L Carbon Dioxide Level 26 21-32 mmol/L Blood Urea Nitrogen 16 7-18 mg/dL Creatinine 0.4 L 0.5-1.0 mg/dL Glomerular Filtration Rate Calc 106 >90 mL/min Random Glucose 123 H 70-105 mg/dL Total Calcium 8.6 8.5-10.1 mg/dL Current Medications Medications (Trade) Dose Ordered Sig/Liz Route PRN Reason Start Time Stop Time Status Last Admin Dose Admin Acetaminophen/ Codeine Phosphate (TYLenol-coDEINE TAB) 1 tab Q6H PRN PO MODERATE PAIN (4-6) 12/23/24 15:00 12/23/24 14:54 DC Acetaminophen/ Hydrocodone Bitart (NORco 5/325MG) 1 tab Q6H PRN PO MODERATE PAIN (4-6) 12/27/24 14:30 12/27/24 14:21 DC Albuterol (DUOneb) 1 UDVIAL Q6H PRN IH SHORTNESS OF BREATH 12/23/24 13:00 01/22/25 12:59 Albuterol (DUOneb) 1 UDVIAL [id number] IH 12/23/24 18:00 01/22/25 17:59 12/31/24 07:06 1 UDVIAL Albuterol (DUOneb) 1 UDVIAL [id number] IH 12/24/24 13:00 12/24/24 12:52 DC Atorvastatin Calcium (LIPItor 10MG) 10 mg HS PO 12/24/24 21:00 01/23/25 20:59 12/30/24 21:02 10 MG Cyclobenzaprine HCl (Cyclobenzaprine HCl) 10 mg TID PO 12/23/24 21:00 01/22/25 20:59 12/31/24 08:07 10 MG Dextrose (D50w) 50 ml AD PRN IV HYPOGLYCEMIA PROTOCOL 12/24/24 07:00 01/23/25 06:59 Docusate Sodium (COLace 100MG CAP) 100 mg BID PO 12/27/24 21:00 01/26/25 20:59 12/31/24 08:07 100 MG Enoxaparin Sodium (Lovenox) 30 mg BID SQ 12/25/24 21:00 01/24/25 20:59 12/30/24 21:03 30 MG Enoxaparin Sodium (Lovenox) 40 mg DAILY SQ 12/25/24 10:30 12/25/24 16:39 DC 12/25/24 12:01 40 MG Ergocalciferol (Drisdol) 50,000 unit QWEEK PO 12/24/24 09:00 01/23/25 08:59 12/26/24 08:53 50,000 UNIT Glucagon (Glucagon 1mg Kit) 1 mg AD PRN IM HYPOGLYCEMIA PROTOCOL 12/24/24 07:00 01/23/25 06:59 Home Med (Home Medication) DAILY IH 12/24/24 09:00 01/23/25 08:59 12/31/24 08:19 1 EACH Home Med (Home Medication) DAILY PO 12/24/24 09:00 01/23/25 08:59 12/31/24 08:10 1 EACH Home Med (Home Medication) DAILY PO 12/24/24 09:00 01/23/25 08:59 12/31/24 08:19 1 EACH Home Med (Home Medication) DAILY PO 12/24/24 09:00 01/23/25 08:59 12/31/24 08:19 1 EACH Home Med (Home Medication) DAILY PO 12/24/24 09:00 01/23/25 08:59 Hydralazine HCl (APRESOLine 20MG INJ) 5 mg Q6H PRN IV ADMINISTER FOR SBP > 160 12/25/24 08:30 01/24/25 08:29 12/25/24 16:30 5 MG Hydromorphone HCl (DiLAUDid 0.5MG INJ) 0.2 mg Q6H PRN IVP SEVERE PAIN (7-10) 12/27/24 14:30 12/28/24 13:17 DC 12/27/24 22:45 0.2 MG Hydromorphone HCl (DiLAUDid 0.5MG INJ) 0.5 mg Q4H PRN IVP SEVERE PAIN (7-10) 12/24/24 14:00 12/27/24 14:04 DC 12/27/24 14:01 0.5 MG Ibuprofen (moTRIN) 400 mg Q6H PRN PO MODERATE PAIN (4-6) 12/30/24 17:00 01/29/25 16:59 12/31/24 04:08 400 MG Insulin Human Regular (humuLIN R 100 UNIT/ML 3ML) INSULIN SLIDING SCAL... ACHS SQ 12/24/24 07:30 01/23/25 07:29 Ketorolac Tromethamine (toRADol) 15 mg Q6H PRN IV MODERATE PAIN (4-6) IF NPO 12/23/24 15:00 12/25/24 10:28 DC 12/24/24 18:14 15 MG Ketorolac Tromethamine (toRADol) 30 mg Q6H PRN IV MODERATE PAIN (4-6) IF NPO 12/25/24 15:00 12/30/24 14:59 DC 12/29/24 17:50 30 MG Losartan Potassium (CozAAR 100MG TAB) 100 mg DAILY PO 12/24/24 09:00 01/23/25 08:59 12/31/24 08:07 100 MG Magnesium Sulfate 50 ml @ 0 mls/hr PROTOCOL PRN IV OTHER [SEE ORDER COMMENTS] 12/24/24 07:00 01/23/25 06:59 12/26/24 08:51 25 MLS/HR Methylprednisolone Sodium Succinate (Solu-medROL 40MG) 40 mg BID IVP 12/30/24 21:00 01/29/25 20:59 12/31/24 08:07 40 MG Methylprednisolone Sodium Succinate (Solu-medROL 40MG) 40 mg Q6H IVP 12/27/24 19:00 12/28/24 00:52 DC 12/27/24 22:39 40 MG Methylprednisolone Sodium Succinate (Solu-medROL 40MG) 40 mg Q6H IVP 12/28/24 05:00 12/30/24 10:30 DC 12/30/24 04:35 40 MG Morphine Sulfate (morPHINE 4MG SYG) 4 mg Q4H PRN IVP SEVERE PAIN (7-10) 12/23/24 15:00 12/24/24 13:46 DC 12/24/24 08:04 4 MG Nicotine (Nicoderm) 21 mg DAILY TD 12/24/24 09:00 01/23/25 08:59 12/31/24 08:08 21 MG Pantoprazole Sodium (PROTonix 40MG TAB) 40 mg DAILY PO 12/24/24 09:00 01/23/25 08:59 12/31/24 08:07 40 MG Piperacillin Sod/ Tazobactam Sod (Zosyn 3.375gm+NS 50ml) 3.375 gm Q8H IV 12/25/24 10:30 01/04/25 10:29 12/31/24 11:58 3.375 GM Potassium Chloride 100 ml @ 100 mls/hr AD PRN IV POTASSIUM PROTOCOL 12/24/24 07:00 01/23/25 06:59 Potassium Chloride (K-Dur/Klor-Con 20meq) 20 meq AD PRN PO POTASSIUM PROTOCOL 12/24/24 07:00 01/23/25 06:59 Potassium Chloride (KCl 10% Elixir 20meq/15ml) 20 meq AD PRN PO POTASSIUM PROTOCOL 12/24/24 07:00 01/23/25 06:59 Tramadol HCl (UltRAM) 50 mg Q6H PRN PO MODERATE PAIN (4-6) 12/24/24 01:00 12/29/24 00:59 DC 12/28/24 17:43 50 MG Vitamin B Complex (Vitamin B-12) 500 mcg DAILY PO 12/24/24 09:00 01/23/25 08:59 12/31/24 08:07 500 MCG DIAGNOSTICS / RADIOLOGY: [ ] ASSESSMENT: Primary: Status post open ventral hernia repair with mesh (incarcerated, [place] [employer] defect) Metastatic invasion of the spine, POA Secondary: Acute hypoxic respiratory failure, improved Bilateral pneumonia, right > left, improving COPD on home O2 Morbid obesity Diabetes mellitus type 2 Hypertension Hyperlipidemia Nicotine dependence Obstructive sleep apnea, high risk (STOP-BANG 5) T11 vertebral body lytic lesion with pathologic fracture (pending biopsy) Plan: Continue Zosyn Trend WBCs Follow-up cultures Continue IV steroids O2 nasal cannula as needed Follow up with Pulmonary Medicine Continue atorvastatin, losartan Monitor blood pressure GI soft diet No need for GI prophylaxis No need for IV fluids Trend a.m. BMP Replete electrolytes as necessary DVT prophylaxis with Lovenox Trend a.m. CBC Follow up with heme oncology -recommend spinal mass biopsy Follow up with Neurosurgery -recommend spinal mass biopsy Full code Case was discussed with patient's nurse at bedside Attention time greater than 30 minutes CHARLINE SERRANO IV, MD Dec 31, 2024 12:09
--- NOTE | 2024-12-31 14:00 | PN ---
[facility] PROGRESS NOTE Date Patient Seen: Dec 31, 2024 Time of Visit: 1152 Supervising Physician: Dr. Ace PCP: Carol Burdick Inpatient Consults: General surgery, Hematology/Oncology, Neurosurgery PROBLEM LIST: 1. Acute hypoxic respiratory failure 2. Bilateral pneumonia worse on the Right 3. COPD on home O2 4. Tobacco abuse 5. Morbid obesity 6. Obstructive sleep apnea undiagnosed & untreated -STOP-BANG SCORE 5 Point, High Risk of KEN 7. 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 8. Education was provided on importance of smoking cessation. Patient currently on nicotine patch. RECOMMENDATIONS: Sputum culture pending Neurosurgery recommendations biopsy scheduled for Thursday CPAP, settings: 8 cm 30% FiO2. Continue breathing treatments Continue IS Continue Solu-Medrol 40 mg Q 12 hours Continue with antibiotics Zosyn 3.375 g IV q.8 hours. Smoking sensation, Nicoderm 21 mcg patch daily Continue to monitor respiratory status closely Maintain adequate oxygenation Keep O2 sats greater or equal to 90% Aspiration precautions INTERVAL HISTORY: 12/30 Patient was seen and examined today with no new complaints. Daughter is at bedside. Patient remains on 4 L NC. Patient denies any shortness of breath or discomforts. Advised patient that steroid has been decreased to twice a day. Let patient know neurosurgeons plan is to do a biopsy on Thursday to the lesion found on MRI, patient was aware. As per primary nurse no acute events to be reports. 12/31 Patient is awake, alert, and walking with physical therapy. She is 4 LPM NC. She denies shortness of breath or any discomforts. Plan continues for patient to have biopsy done on Thursday. As per primary nurse no acute events to report. Education was provided on importance of smoking cessation. Patient currently on nicotine patch. REVIEW OF SYSTEMS: 12 point ROS reviewed with patient. Pertinent positives mentioned above. Otherwise negative. PHYSICAL EXAM: GENERAL: alert, weak, awake oriented x 3 HEENT: EOMI, Sclera non icteric, moist mucosa NECK: Supple, no JVD, trachea midline LUNGS: Diminished breath sounds bilaterally. wheezes upper lobes HEART: Regular rate and rhythm. Normal S1 and S2, without murmurs ABD: Abdomen soft, nontender. Bowel sounds present EXT: No clubbing cyanosis or edema NEURO: Alert and oriented to person, follows commands Vital Signs (last 8hr) Date Time Temp Pulse Resp B/P (MAP) Pulse Ox O2 Delivery O2 Flow Rate FiO2 12/31/24 12:29 86 18 12/31/24 12:28 86 18 N/Cannula Oximizer Hi LPM 3.0 32 12/31/24 11:39 98.2 79 18 136/86 90 Nasal Cannula 3.0 12/31/24 08:07 90 Nasal Cannula* 3 32 12/31/24 07:30 98.2 80 18 157/83 90 Nasal Cannula 3.0 12/31/24 07:06 75 18 N/Cannula Oximizer Hi LPM 3.0 32 12/31/24 07:06 75 18 LABS: Hematology Labs: Test 12/31/24 06:06 Range/Units White Blood Count 11.7 H 4.8-10.8 K/uL Red Blood Count 4.93 4.00-5.50 MIL/uL Hemoglobin 13.8 12.0-16.0 g/dL Hematocrit 42.1 36-48 % Mean Corpuscular Volume 85.4 79-99 fL Mean Corpuscular Hemoglobin 28.0 27.0-33.0 pg Mean Corpuscular Hemoglobin Concent 32.8 32.0-36.0 g/dL Red Cell Distribution Width 16.6 H 11.0-15.5 % Platelet Count 150 # 130-400 K/uL Mean Platelet Volume 9.3 7.5-10.5 fL Nucleated Red Blood Cells 0.0 0.0-0.19 % Chemistry Labs: Test 12/31/24 10:59 12/31/24 06:06 Range/Units Whole Blood Glucose 126 H 70-110 MG/DL Sodium Level 138 136-145 mmol/L Potassium Level 4.0 3.5-5.1 mmol/L Chloride Level 104 101-111 mmol/L Carbon Dioxide Level 26 21-32 mmol/L Blood Urea Nitrogen 16 7-18 mg/dL Creatinine 0.4 L 0.5-1.0 mg/dL Glomerular Filtration Rate Calc 106 >90 mL/min Random Glucose 123 H 70-105 mg/dL Total Calcium 8.6 8.5-10.1 mg/dL DIAGNOSTICS / RADIOLOGY RESULTS: n/a PLAN NEURO: Minimize central acting medications as possible. Maintain fall precautions, adequate lighting during the day PULMONARY: Supplemental 02 as needed. Maintain aspiration precautions at all times CARDIOVASCULAR: Follow hemodynamics. Vital signs per facility protocol GI & NUTRITION: Continue with nutritional support. Continue stool softeners and laxatives as needed. KIDNEYS & ELECTROLYTES: Strict monitoring of intake, output and overall fluid balance. Avoid nephrotoxic medications to the extent possible. Medications to be dosed according to renal function. Monitor electrolytes and replace as needed ENDOCRINE: Maintain blood glucose between 100-180 at all times. Hypoglycemia protocol in place INFECTIOUS DISEASE: Trend temperature, WBC and procalcitonin level Follow cultures, deescalate antibiotics as soon as possible. Panculture if new onset fever ONCOLOGY/HEMATOLOGY/COAGULATION: Monitor for s/s of bleeding Monitor hemoglobin, coagulation studies as needed SKIN: Pressure ulcer prevention per facility protocol Specialty mattress ORTHO/REHAB: Continue PT/OT Prophylaxis: Continue GI and DVT prophylaxis Code Status: Full Resuscitation Disposition: TBD Other: Case discussed with supervising physician plan of care agreed upon GERARDO COYNE APRN Dec 31, 2024 14:00
--- NOTE | 2024-12-31 15:07 | CONS ---
CONSULT NOTE: HISTORY OF PRESENT ILLNESS: A 69-year-old woman who was admitted for surgery and ventral hernia. He has had a complicated course with atelectasis versus right lower lobe pneumonia, acute respiratory failure. Course of workup, she had a CAT scan which showed tumor destroying T12. We were asked to see her for the same. It turns out she had an MRI at this facility in late November, which showed the same lesion but also suggested possibly extension to other vertebrae and metastasis to other bones. In any case, we were asked to address this situation. Patient is stable but complaining of back pain. No bladder or bowel incontinence. No LE weakness. Denies any fever chills or night sweats. EXAM: GENERAL: AAO3, no NAD VITAL SIGNS: reviewed HEENT: Benign. CHEST: Clear. ABDOMEN: Soft. EXTREMITIES: Show mild edema. NEUROLOGIC: No focal deficits LABS: WBC 8.7 HGB 13.8 PLT 248 SCR 0.4 Ca 8.6 IMAGING: MRI 12/28/2024 An expansile lytic lesion involving the left lateral aspect of the body of the T11 vertebra and involving the left pedicle and lamina of the T11 vertebra possibility of osteoblastoma. Another differential could be plasmacytoma. Pathological anterior wedge compression fracture of the T11 thoracic vertebra with bone marrow edema. A/P: T11 bone lesion: 69 y/o female with no previous cancer history presenting with back pain found to have a T11 lesion suspicious for neoplastic process. Will need tissue diagnosis, possible surgical management. Currently on Solumedrol per primary team. No cytopenia, renal impairment or hypercalcemia. Will get SPEP and light chain. Will need PET imaging to evaluate for primary process. Defer pain management to primary team. Will continue to follow. EDUARDA SMITH MD [facility] covering for EDUARDA Akins MD Dec 31, 2024 15:07
[2025-01-01] VITALS (15 sets, daily range): BP systolic 131–156; BP diastolic 61–92; PULSE 52–86; RESP 16–20; TEMP 97.6–98; O2SAT 92–96
[2025-01-01 06:15] LABS: NUCLEATED RED BLOOD CELLS 0.0 % (0.0-0.19); PLATELET COUNT (AUTO) 333.0 K/uL (130-400); RED BLOOD CELL COUNT(AUTO) 4.92 MIL/uL (4.00-5.50); RED CELL DISTRIBUTION WIDTH 16.7 % (11.0-15.5); WHITE BLOOD COUNT (AUTO) 13.0 K/uL (4.8-10.8)
[2025-01-01 06:25] LABS: CREATININE 0.5 mg/dL (0.5-1.0); GLOMERULAR FILTR. RATE CALC 100.0 mL/min (>90); GLUCOSE,RANDOM 108.0 mg/dL (70-105); SODIUM SERUM 142.0 mmol/L (136-145); UREA NITROGEN, BLOOD 17.0 mg/dL (7-18)
[2025-01-01] MEDS: PoTASSium chloRIDE 20MEQ ER 20 MEQ ERTAB PO PRN (07:56)
--- NOTE | 2025-01-01 11:39 | PN ---
[facility] PROGRESS NOTE Date Patient Seen: Jan 01, 2025 Time of Visit: 1055 Supervising Physician: Dr. Panda PCP: Carol Burdick Inpatient Consults: General surgery, Hematology/Oncology, Neurosurgery PROBLEM LIST: 1. Acute hypoxic respiratory failure 2. Bilateral pneumonia worse on the Right 3. COPD on home O2 4. Tobacco abuse 5. Morbid obesity 6. Obstructive sleep apnea undiagnosed & untreated -STOP-BANG SCORE 5 Point, High Risk of KEN 7. 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 8. Education was provided on importance of smoking cessation. Patient currently on nicotine patch. RECOMMENDATIONS: Will discontinue IV steroids SPUTUM CULTURE POSITIVE FOR QIANA Neurosurgery recommendations biopsy scheduled for Thursday CPAP, settings: 8 cm 30% FiO2. Continue breathing treatments Continue IS Continue Solu-Medrol 40 mg Q 12 hours Continue with antibiotics Zosyn 3.375 g IV q.8 hours. Smoking sensation, Nicoderm 21 mcg patch daily Continue to monitor respiratory status closely Maintain adequate oxygenation Keep O2 sats greater or equal to 90% Aspiration precautions INTERVAL HISTORY: 12/30 Patient was seen and examined today with no new complaints. Daughter is at bedside. Patient remains on 4 L NC. Patient denies any shortness of breath or discomforts. Advised patient that steroid has been decreased to twice a day. Let patient know neurosurgeons plan is to do a biopsy on Thursday to the lesion found on MRI, patient was aware. As per primary nurse no acute events to be reports. 12/31 Patient is awake, alert, and walking with physical therapy. She is 4 LPM NC. She denies shortness of breath or any discomforts. Plan continues for patient to have biopsy done on Thursday. As per primary nurse no acute events to report. Education was provided on importance of smoking cessation. Patient currently on nicotine patch. 01/01 Patient is awake, alert, and sitting up in bed. Nurse is at bedside. He reports biopsy has been moved to Thursday due to a holiday on Thursday. Patient was made aware. She is on 4 LPM NC. She denies shortness of breath or any discomforts. Will continue to monitor patient labs and VS. Patient has no concerns or questions. REVIEW OF SYSTEMS: 12 point ROS reviewed with patient. Pertinent positives mentioned above. Otherwise negative. PHYSICAL EXAM: GENERAL: alert, weak, awake oriented x 3 HEENT: EOMI, Sclera non icteric, moist mucosa NECK: Supple, no JVD, trachea midline LUNGS: Diminished breath sounds bilaterally. wheezes upper lobes HEART: Regular rate and rhythm. Normal S1 and S2, without murmurs ABD: Abdomen soft, nontender. Bowel sounds present EXT: No clubbing cyanosis or edema NEURO: Alert and oriented to person, follows commands Vital Signs (last 8hr) Date Time Temp Pulse Resp B/P (MAP) Pulse Ox O2 Delivery O2 Flow Rate FiO2 01/01/25 09:35 95 Nasal Cannula* 3 32 01/01/25 07:53 97.9 79 18 145/92 95 Room Air 01/01/25 07:09 74 18 N/Cannula Oximizer Hi LPM 3.0 32 01/01/25 07:06 74 18 01/01/25 03:43 97.7 52 16 132/72 97 Nasal Cannula 3.0 LABS: Hematology Labs: Test 01/01/25 05:58 Range/Units White Blood Count 13.0 H 4.8-10.8 K/uL Red Blood Count 4.92 4.00-5.50 MIL/uL Hemoglobin 13.8 12.0-16.0 g/dL Hematocrit 42.0 36-48 % Mean Corpuscular Volume 85.4 79-99 fL Mean Corpuscular Hemoglobin 28.0 27.0-33.0 pg Mean Corpuscular Hemoglobin Concent 32.9 32.0-36.0 g/dL Red Cell Distribution Width 16.7 H 11.0-15.5 % Platelet Count 333 # 130-400 K/uL Mean Platelet Volume 8.6 7.5-10.5 fL Nucleated Red Blood Cells 0.0 0.0-0.19 % Chemistry Labs: Test 01/01/25 11:11 01/01/25 05:58 Range/Units Whole Blood Glucose 132 H 70-110 MG/DL Sodium Level 142 136-145 mmol/L Potassium Level 3.8 3.5-5.1 mmol/L Chloride Level 104 101-111 mmol/L Carbon Dioxide Level 29 21-32 mmol/L Blood Urea Nitrogen 17 7-18 mg/dL Creatinine 0.5 0.5-1.0 mg/dL Glomerular Filtration Rate Calc 100 >90 mL/min Random Glucose 108 H 70-105 mg/dL Total Calcium 8.5 8.5-10.1 mg/dL DIAGNOSTICS / RADIOLOGY RESULTS: PLAN NEURO: Minimize central acting medications as possible. Maintain fall precautions, adequate lighting during the day PULMONARY: Supplemental 02 as needed. Maintain aspiration precautions at all times CARDIOVASCULAR: Follow hemodynamics. Vital signs per facility protocol GI & NUTRITION: Continue with nutritional support. Continue stool softeners and laxatives as needed. KIDNEYS & ELECTROLYTES: Strict monitoring of intake, output and overall fluid balance. Avoid nephrotoxic medications to the extent possible. Medications to be dosed according to renal function. Monitor electrolytes and replace as needed ENDOCRINE: Maintain blood glucose between 100-180 at all times. Hypoglycemia protocol in place INFECTIOUS DISEASE: Trend temperature, WBC and procalcitonin level Follow cultures, deescalate antibiotics as soon as possible. Panculture if new onset fever ONCOLOGY/HEMATOLOGY/COAGULATION: Monitor for s/s of bleeding Monitor hemoglobin, coagulation studies as needed SKIN: Pressure ulcer prevention per facility protocol Specialty mattress ORTHO/REHAB: Continue PT/OT Prophylaxis: Continue GI and DVT prophylaxis Code Status: Full Resuscitation Disposition: TBD Other: Case discussed with supervising physician plan of care agreed upon GERARDO COYNE APRN Jan 01, 2025 11:39
--- NOTE | 2025-01-01 12:43 | PN ---
[facility] PROGRESS NOTE Date of Service: Jan 01, 2025 Time of Service: 12:39 SUBJECTIVE: 12/25 patient is seen and examined at bedside, case discussed with the RN, no acute events overnight, during my visit patient alert oriented x3, on supplemental oxygen via nasal cannula at 3 L, saturating 98%. Patient has a history of COPD, on chronic home oxygen at 3 L at home. Patient is status post laparoscopic lysis of adhesions, converted to open ventral hernia repair with mesh of hernia incarcerated 12/23/2024, tolerated the procedure well. Continue current pain medication with adjustment as needed. Continue supplemental oxygen via nasal cannula. Chest x-ray showing mild bibasilar airspace disease right greater than left, may reflect pneumoniae, suspect small right pleural effusion. Start the patient on Zosyn IV, we will request Pulmonary consult, monitor WBC in a.m.. Lovenox 40 mg subcutaneously daily, follow CBC transfuse as needed. Continue DuoNeb. Discussed with the patient, in agreement. 12/[address] chest without contrast concerning for pneumonia as well as a new soft tissue mass at T12 with moderate erosion, recommendations are to proceed with MRI of the thoracic spine with and without IV contrast 12/27 T12 mass is known to the patient. She would like heme oncology evaluation. We agreed heme oncology evaluation can be performed inpatient or outpatient/SNF. Patient is pending SNF placement. 12/28 patient continues to be in pain as expected due to her spinal mass. We are transitioning to oral pain regimen and she will be discharged soon. Spoke with the nurse about giving oral pain medications 12/29/24 Patient was seen in the room, she is aware of the incendental findings, MRI of thoracic has been reviewed. We will follow the recommendation from Dr. Fonseca, pending biopsy. 12/30 heme oncology recommending urgent neurosurgery evaluation for tumor invading the spine. 12/31 patient is pending spinal biopsy. White count is improving. We will maintain the patient on broad-spectrum IV antibiotics. 01/01 Patient was resting comfortably in bed. No new complaints or concerns from the patient. No acute events reported overnight. Patient is pending biopsy and further investigation for primary source potential malignancy REVIEW OF SYSTEMS CONSTITUTIONAL: Denies fevers, chills, or night sweats. No unintentional weight loss reported. NEUROLOGICAL: Denies headache, amaurosis fugax, motor weakness, sensory deficit, vertigo/spinning sensation, gait abnormalities, or tremors. ENT: No hearing loss, otalgia, otorrhea, rhinitis, rhinorrhea, hoarseness, or sore throat. CARDIOVASCULAR: Denies any exertional angina, dyspnea on exertion, orthopnea, paroxysmal nocturnal dyspnea, palpitations, life-threatening arrhythmias, claudication. PULMONARY: Denies any shortness of breath, cough, phlegm/sputum, hemoptysis, pleuritic chest pain. SLEEP: Denies morning headaches, daytime somnolence or napping. Denies difficulty falling asleep, staying asleep, waking from sleep. Denies knowledge of snoring. GASTROINTESTINAL: complain of mild abdominal pain Denies any type of dysphagia to either liquids or solids. Denies nausea, vomiting, pyrosis, early satiety,diarrhea, constipation, or changes in stool consistency or caliber. Denies coffee-ground emesis, hematemesis, hematochezia, or melanotic stools. GENITOURINARY: Denies frequency, urgency, nocturia, hematuria or incontinence (Storage/Irritative symptoms.) Low urinary stream, straining to void, urinary intermittency or hesitancy, splitting of the voiding stream, terminal dribbling. ENDOCRINOLOGIC: Denies polyuria, polydipsia, polyphagia or heat/cold intolerances. HEMATOLOGIC: Denies thrombophilia/previous clots, or coagulopathy/bleeding disorders. ONCOLOGIC: Denies personal history of malignancy. DERMATOLOGIC: Denies rashes or pruritus. PSYCHIATRIC: Denies any suicidal or homicidal ideation. Denies hallucinations. PHYSICAL EXAM GENERAL APPEARANCE: The patient is awake, alert, and oriented, in no acute cardiopulmonary distress. NEUROLOGICAL: Cranial nerves II-XII grossly intact. Motor is 5/5 in bilateral upper and lower extremities proximal to distal. No sensory deficits. HEENT: Face is symmetric. Pupils are equal and reactive. Extraocular movements are intact. NECK: Supple. No JVD. No thyromegaly. No submental, submandibular, pre- /postauricular, occipital or supraclavicular lymphadenopathy. CHEST: Normal chest expansion. No Telemetry. LUNGS: Absence of any rales, rhonchi or any wheezing. CARDIOVASCULAR: Regular. S1 and S2 normal. No appreciable rubs, murmurs or gallops. ABDOMEN: + MATEO Soft and nondistended. There is no rebound, voluntary guarding, or rigidity. : Deferred. No Aplomo. EXTREMITIES: Non-edematous and not cyanotic. No clubbing. Good capillary refill. SKIN: No skin breakdown. Vital Signs (last 8hr) Date Time Temp Pulse Resp B/P (MAP) Pulse Ox O2 Delivery O2 Flow Rate FiO2 01/01/25 11:42 98.1 82 18 147/89 93 Nasal Cannula 3.0 01/01/25 11:41 86 18 N/Cannula Oximizer Hi LPM 3.0 32 01/01/25 11:39 86 18 01/01/25 09:35 95 Nasal Cannula* 3 32 01/01/25 07:53 97.9 79 18 145/92 95 Room Air 01/01/25 07:09 74 18 N/Cannula Oximizer Hi LPM 3.0 32 01/01/25 07:06 74 18 LABS: Laboratory: Test 01/01/25 11:11 01/01/25 05:58 Range/Units Whole Blood Glucose 132 H 70-110 MG/DL White Blood Count 13.0 H 4.8-10.8 K/uL Red Blood Count 4.92 4.00-5.50 MIL/uL Hemoglobin 13.8 12.0-16.0 g/dL Hematocrit 42.0 36-48 % Mean Corpuscular Volume 85.4 79-99 fL Mean Corpuscular Hemoglobin 28.0 27.0-33.0 pg Mean Corpuscular Hemoglobin Concent 32.9 32.0-36.0 g/dL Red Cell Distribution Width 16.7 H 11.0-15.5 % Platelet Count 333 # 130-400 K/uL Mean Platelet Volume 8.6 7.5-10.5 fL Nucleated Red Blood Cells 0.0 0.0-0.19 % Sodium Level 142 136-145 mmol/L Potassium Level 3.8 3.5-5.1 mmol/L Chloride Level 104 101-111 mmol/L Carbon Dioxide Level 29 21-32 mmol/L Blood Urea Nitrogen 17 7-18 mg/dL Creatinine 0.5 0.5-1.0 mg/dL Glomerular Filtration Rate Calc 100 >90 mL/min Random Glucose 108 H 70-105 mg/dL Total Calcium 8.5 8.5-10.1 mg/dL Current Medications Medications (Trade) Dose Ordered Sig/Liz Route PRN Reason Start Time Stop Time Status Last Admin Dose Admin Acetaminophen/ Codeine Phosphate (TYLenol-coDEINE TAB) 1 tab Q6H PRN PO MODERATE PAIN (4-6) 12/23/24 15:00 12/23/24 14:54 DC Acetaminophen/ Hydrocodone Bitart (NORco 5/325MG) 1 tab Q6H PRN PO MODERATE PAIN (4-6) 12/27/24 14:30 12/27/24 14:21 DC Albuterol (DUOneb) 1 UDVIAL Q6H PRN IH SHORTNESS OF BREATH 12/23/24 13:00 01/22/25 12:59 Albuterol (DUOneb) 1 UDVIAL Q6CIQAR IH 12/23/24 18:00 01/22/25 17:59 01/01/25 11:39 1 UDVIAL Albuterol (DUOneb) 1 UDVIAL O5GNPGV IH 12/24/24 13:00 12/24/24 12:52 DC Atorvastatin Calcium (LIPItor 10MG) 10 mg HS PO 12/24/24 21:00 01/23/25 20:59 12/31/24 20:19 10 MG Cyclobenzaprine HCl (Cyclobenzaprine HCl) 10 mg TID PO 12/23/24 21:00 01/22/25 20:59 01/01/25 08:01 10 MG Dextrose (D50w) 50 ml AD PRN IV HYPOGLYCEMIA PROTOCOL 12/24/24 07:00 01/23/25 06:59 Docusate Sodium (COLace 100MG CAP) 100 mg BID PO 12/27/24 21:00 01/26/25 20:59 01/01/25 07:56 100 MG Enoxaparin Sodium (Lovenox) 30 mg BID SQ 12/25/24 21:00 01/24/25 20:59 Hold 12/30/24 21:03 30 MG Enoxaparin Sodium (Lovenox) 40 mg DAILY SQ 12/25/24 10:30 12/25/24 16:39 DC 12/25/24 12:01 40 MG Ergocalciferol (Drisdol) 50,000 unit QWEEK PO 12/24/24 09:00 01/23/25 08:59 12/26/24 08:53 50,000 UNIT Glucagon (Glucagon 1mg Kit) 1 mg AD PRN IM HYPOGLYCEMIA PROTOCOL 12/24/24 07:00 01/23/25 06:59 Home Med (Home Medication) DAILY IH 12/24/24 09:00 01/23/25 08:59 01/01/25 08:02 1 EACH Home Med (Home Medication) DAILY PO 12/24/24 09:00 01/23/25 08:59 01/01/25 08:02 1 EACH Home Med (Home Medication) DAILY PO 12/24/24 09:00 01/23/25 08:59 01/01/25 08:02 1 EACH Home Med (Home Medication) DAILY PO 12/24/24 09:00 01/23/25 08:59 01/01/25 08:02 1 EACH Home Med (Home Medication) DAILY PO 12/24/24 09:00 01/23/25 08:59 Hydralazine HCl (APRESOLine 20MG INJ) 5 mg Q6H PRN IV ADMINISTER FOR SBP > 160 12/25/24 08:30 01/24/25 08:29 12/25/24 16:30 5 MG Hydromorphone HCl (DiLAUDid 0.5MG INJ) 0.2 mg Q6H PRN IVP SEVERE PAIN (7-10) 12/27/24 14:30 12/28/24 13:17 DC 12/27/24 22:45 0.2 MG Hydromorphone HCl (DiLAUDid 0.5MG INJ) 0.5 mg Q4H PRN IVP SEVERE PAIN (7-10) 12/24/24 14:00 12/27/24 14:04 DC 12/27/24 14:01 0.5 MG Ibuprofen (moTRIN) 400 mg Q6H PRN PO MODERATE PAIN (4-6) 12/30/24 17:00 12/31/24 18:42 DC 12/31/24 14:38 400 MG Ibuprofen (moTRIN) 800 mg TIDP PRN PO MODERATE PAIN (4-6) 12/31/24 19:00 01/29/25 16:59 01/01/25 06:40 800 MG Insulin Human Regular (humuLIN R 100 UNIT/ML 3ML) INSULIN SLIDING SCAL... ACHS SQ 12/24/24 07:30 01/23/25 07:29 Ketorolac Tromethamine (toRADol) 15 mg Q6H PRN IV MODERATE PAIN (4-6) IF NPO 12/23/24 15:00 12/25/24 10:28 DC 12/24/24 18:14 15 MG Ketorolac Tromethamine (toRADol) 30 mg Q6H PRN IV MODERATE PAIN (4-6) IF NPO 12/25/24 15:00 12/30/24 14:59 DC 12/29/24 17:50 30 MG Losartan Potassium (CozAAR 100MG TAB) 100 mg DAILY PO 12/24/24 09:00 01/23/25 08:59 01/01/25 07:57 100 MG Magnesium Sulfate 50 ml @ 0 mls/hr PROTOCOL PRN IV OTHER [SEE ORDER COMMENTS] 12/24/24 07:00 01/23/25 06:59 12/26/24 08:51 25 MLS/HR Methylprednisolone Sodium Succinate (Solu-medROL 40MG) 40 mg BID IVP 12/30/24 21:00 01/29/25 20:59 01/01/25 07:58 40 MG Methylprednisolone Sodium Succinate (Solu-medROL 40MG) 40 mg Q6H IVP 12/27/24 19:00 12/28/24 00:52 DC 12/27/24 22:39 40 MG Methylprednisolone Sodium Succinate (Solu-medROL 40MG) 40 mg Q6H IVP 12/28/24 05:00 12/30/24 10:30 DC 12/30/24 04:35 40 MG Morphine Sulfate (morPHINE 4MG SYG) 4 mg Q4H PRN IVP SEVERE PAIN (7-10) 12/23/24 15:00 12/24/24 13:46 DC 12/24/24 08:04 4 MG Nicotine (Nicoderm) 21 mg DAILY TD 12/24/24 09:00 01/23/25 08:59 01/01/25 07:57 21 MG Pantoprazole Sodium (PROTonix 40MG TAB) 40 mg DAILY PO 12/24/24 09:00 01/23/25 08:59 01/01/25 07:57 40 MG Piperacillin Sod/ Tazobactam Sod (Zosyn 3.375gm+NS 50ml) 3.375 gm Q8H IV 12/25/24 10:30 01/04/25 10:29 01/01/25 02:20 3.375 GM Potassium Chloride 100 ml @ 100 mls/hr AD PRN IV POTASSIUM PROTOCOL 12/24/24 07:00 01/23/25 06:59 Potassium Chloride (K-Dur/Klor-Con 20meq) 20 meq AD PRN PO POTASSIUM PROTOCOL 12/24/24 07:00 01/23/25 06:59 01/01/25 07:56 20 MEQ Potassium Chloride (KCl 10% Elixir 20meq/15ml) 20 meq AD PRN PO POTASSIUM PROTOCOL 12/24/24 07:00 01/23/25 06:59 Tramadol HCl (UltRAM) 50 mg Q6H PRN PO MODERATE PAIN (4-6) 12/24/24 01:00 12/29/24 00:59 DC 12/28/24 17:43 50 MG Vitamin B Complex (Vitamin B-12) 500 mcg DAILY PO 12/24/24 09:00 01/23/25 08:59 01/01/25 07:57 500 MCG DIAGNOSTICS / RADIOLOGY: [ ] ASSESSMENT: Primary: Status post open ventral hernia repair with mesh (incarcerated, [employer] cheese defect) Metastatic invasion of the spine, POA Secondary: Acute hypoxic respiratory failure, improved Bilateral pneumonia, right > left, improving COPD on home O2 Morbid obesity Diabetes mellitus type 2 Hypertension Hyperlipidemia Nicotine dependence Obstructive sleep apnea, high risk (STOP-BANG 5) T11 vertebral body lytic lesion with pathologic fracture (pending biopsy) Plan: Continue Zosyn Trend WBCs Follow-up cultures Continue IV steroids O2 nasal cannula as needed Follow up with Pulmonary Medicine Continue atorvastatin, losartan Monitor blood pressure GI soft diet No need for GI prophylaxis No need for IV fluids Trend a.m. BMP Replete electrolytes as necessary DVT prophylaxis with Lovenox Trend a.m. CBC Follow up with heme oncology -recommend spinal mass biopsy Follow up with Neurosurgery -recommend spinal mass biopsy Full code Case was discussed with patient's nurse at bedside Attention time greater than 30 minutes CHARLINE SERRANO IV, MD Jan 01, 2025 12:43
--- NOTE | 2025-01-01 13:32 | CONS ---
CONSULT NOTE: HISTORY OF PRESENT ILLNESS: A 69-year-old woman who was admitted for surgery and ventral hernia. He has had a complicated course with atelectasis versus right lower lobe pneumonia, acute respiratory failure. Course of workup, she had a CAT scan which showed tumor destroying T12. We were asked to see her for the same. It turns out she had an MRI at this facility in late November, which showed the same lesion but also suggested possibly extension to other vertebrae and metastasis to other bones. In any case, we were asked to address this situation. Patient is stable, back pain much improved with the addition of Motrin to her pain regimen. No bladder or bowel incontinence. No LE weakness. Denies any fever chills or night sweats. EXAM: GENERAL: AAO3, no NAD VITAL SIGNS: reviewed HEENT: Benign. CHEST: Clear. ABDOMEN: Soft. EXTREMITIES: Show mild edema. NEUROLOGIC: No focal deficits LABS: WBC 13 hemoglobin 13.8 platelet 333 IMAGING: MRI 12/28/2024 An expansile lytic lesion involving the left lateral aspect of the body of the T11 vertebra and involving the left pedicle and lamina of the T11 vertebra possibility of osteoblastoma. Another differential could be plasmacytoma. Pathological anterior wedge compression fracture of the T11 thoracic vertebra with bone marrow edema. A/P: T11 bone lesion: 69 y/o female with no previous cancer history presenting with back pain found to have a T11 lesion suspicious for neoplastic process. Will need tissue diagnosis, possible surgical management. Currently on Solumedrol per primary team. No cytopenia, renal impairment or hypercalcemia. Pending SPEP and light chain. Will need PET imaging to evaluate for primary process. Defer pain management to primary team. Will continue to follow. EDUARDA SMITH MD HEM-ONC covering for Dr Fonseca Patient History: Asthma FATHER Cardiovascular disease MOTHER Completed stroke MOTHER FH: hypertension MOTHER SISTER Sudden MOTHER FATHER Unknown FATHER (cancer) SISTER (alcoholism ) DAUGHTER (drug abuse, metamphetamines ) Vitals/Labs Vital Signs Date Time Temp Pulse Resp B/P (MAP) Pulse Ox O2 Delivery O2 Flow Rate FiO2 01/01/25 11:42 98.1 82 18 147/89 93 Nasal Cannula 3.0 01/01/25 11:41 32 Laboratory Tests 01/01/25 05:58 Allergies: Coded Allergies: codeine (Unverified Allergy, Unknown, 12/19/24) Medications Current Medications Cefazolin Sodium 1 gm STK-MED ONCE .ROUTE; Start 12/23/24 at 07:25; Stop 12/23/24 at 07:25; Status DC Cefazolin Sodium 2 gm STK-MED ONCE .ROUTE; Start 12/23/24 at 07:25; Stop 12/23/24 at 07:25; Status DC Lactated Ringer's 1,000 ml @ As Directed STK-MED ONCE IV; Start 12/23/24 at 07:25; Stop 12/23/24 at 07:26; Status DC Albuterol 1 UDVIAL ONCE ONCE IH Last administered on 12/23/24at 13:51; Start 12/23/24 at 09:00; Stop 12/23/24 at 09:01; Status DC Albuterol 1 UDVIAL ONCE ONCE IH; Start 12/23/24 at 09:00; Stop 12/23/24 at 09:01; Status DC Lidocaine HCl 100 mg STK-MED ONCE .ROUTE; Start 12/23/24 at 08:55; Stop 12/23/24 at 08:55; Status DC Propofol 200 mg STK-MED ONCE IV; Start 12/23/24 at 08:55; Stop 12/23/24 at 08:55; Status DC Midazolam HCl 2 mg STK-MED ONCE .ROUTE; Start 12/23/24 at 08:55; Stop 12/23/24 at 08:55; Status DC Rocuronium Pitcher 50 mg STK-MED ONCE .ROUTE; Start 12/23/24 at 08:55; Stop 12/23/24 at 08:56; Status DC Fentanyl Citrate 100 mcg STK-MED ONCE .ROUTE; Start 12/23/24 at 08:57; Stop 12/23/24 at 08:57; Status DC Dexamethasone Sodium Phosphate 10 mg STK-MED ONCE .ROUTE; Start 12/23/24 at 09:16; Stop 12/23/24 at 09:16; Status DC Ondansetron HCl 4 mg STK-MED ONCE .ROUTE; Start 12/23/24 at 09:16; Stop 12/23/24 at 09:16; Status DC Rocuronium Pitcher 50 mg STK-MED ONCE .ROUTE; Start 12/23/24 at 09:21; Stop 12/23/24 at 09:21; Status DC Cefazolin Sodium 3 gm STK-MED ONCE IVPB Last administered on 12/23/24at 09:12; Start 12/23/24 at 09:12; Stop 12/23/24 at 09:43; Status DC Bupivacaine HCl 10 mg STK-MED ONCE IJ Last administered on 12/23/24at 08:47; Start 12/23/24 at 08:47; Stop 12/23/24 at 09:43; Status DC Fentanyl Citrate 100 mcg STK-MED ONCE .ROUTE; Start 12/23/24 at 09:46; Stop 12/23/24 at 09:46; Status DC Glycopyrrolate 1 mg STK-MED ONCE .ROUTE; Start 12/23/24 at 11:18; Stop 12/23/24 at 11:18; Status DC Neostigmine Methylsulfate 10 mg STK-MED ONCE IV; Start 12/23/24 at 11:18; Stop 12/23/24 at 11:19; Status DC Fentanyl Citrate 100 mcg STK-MED ONCE .ROUTE Last administered on 12/23/24at 11:41; Start 12/23/24 at 11:38; Stop 12/23/24 at 11:38; Status DC Fentanyl Citrate 100 mcg STK-MED ONCE .ROUTE Last administered on 12/23/24at 11:53; Start 12/23/24 at 11:49; Stop 12/23/24 at 11:50; Status DC Albuterol 1 UDVIAL ONCE ONCE IH Last administered on 12/23/24at 13:50; Start 12/23/24 at 12:30; Stop 12/23/24 at 12:31; Status DC Albuterol 1 UDVIAL [id number] IH Last administered on 01/01/25at 11:39; Start 12/23/24 at 18:00; Stop 01/22/25 at 17:59 Albuterol 1 UDVIAL Q6H PRN IH; Start 12/23/24 at 13:00; Stop 01/22/25 at 12:59 Nicotine 21 mg DAILY TD Last administered on 01/01/25at 07:57; Start 12/24/24 at 09:00; Stop 01/23/25 at 08:59 Morphine Sulfate 4 mg Q4H PRN IVP Last administered on 12/24/24at 08:04; Start 12/23/24 at 15:00; Stop 12/24/24 at 13:46; Status DC Ketorolac Tromethamine 15 mg Q6H PRN IV Last administered on 12/24/24at 18:14; Start 12/23/24 at 15:00; Stop 12/25/24 at 10:28; Status DC Acetaminophen/ Codeine Phosphate 1 tab Q6H PRN PO; Start 12/23/24 at 15:00; Stop 12/23/24 at 14:54; Status DC Cyclobenzaprine HCl 10 mg TID PO Last administered on 01/01/25at 08:01; Start 12/23/24 at 21:00; Stop 01/22/25 at 20:59 Atorvastatin Calcium 10 mg HS PO Last administered on 12/31/24at 20:19; Start 12/24/24 at 21:00; Stop 01/23/25 at 20:59 Ergocalciferol 50,000 unit QWEEK PO Last administered on 12/26/24at 08:53; Start 12/24/24 at 09:00; Stop 01/23/25 at 08:59 Losartan Potassium 100 mg DAILY PO Last administered on 01/01/25at 07:57; Start 12/24/24 at 09:00; Stop 01/23/25 at 08:59 Vitamin B Complex 500 mcg DAILY PO Last administered on 01/01/25at 07:57; Start 12/24/24 at 09:00; Stop 01/23/25 at 08:59 Home Med DAILY PO Last administered on 01/01/25 08:02; Start 12/24/24 at 09:00; Stop 01/23/25 at 08:59 Home Med DAILY IH Last administered on 01/01/25at 08:02; Start 12/24/24 at 09:00; Stop 01/23/25 at 08:59 Home Med DAILY PO Last administered on 01/01/25 08:02; Start 12/24/24 at 09:00; Stop 01/23/25 at 08:59 Home Med DAILY PO Last administered on 01/01/25at 08:02; Start 12/24/24 at 09:00; Stop 01/23/25 at 08:59 Home Med DAILY PO; Start 12/24/24 at 09:00; Stop 01/23/25 at 08:59 Tramadol HCl 50 mg Q6H PRN PO Last administered on 12/28/24at 17:43; Start 12/24/24 at 01:00; Stop 12/29/24 at 00:59; Status DC Pantoprazole Sodium 40 mg DAILY PO Last administered on 01/01/25at 07:57; Start 12/24/24 at 09:00; Stop 01/23/25 at 08:59 Magnesium Sulfate 50 ml @ 0 mls/hr PROTOCOL PRN IV Last administered on 12/26/24at 08:51; Start 12/24/24 at 07:00; Stop 01/23/25 at 06:59 Potassium Chloride 100 ml @ 100 mls/hr AD PRN IV; Start 12/24/24 at 07:00; Stop 01/23/25 at 06:59 Potassium Chloride 20 meq AD PRN PO; Start 12/24/24 at 07:00; Stop 01/23/25 at 06:59 Potassium Chloride 20 meq AD PRN PO Last administered on 01/01/25at 07:56; Start 12/24/24 at 07:00; Stop 01/23/25 at 06:59 Insulin Human Regular INSULIN SLIDING SCAL... ACHS SQ; Start 12/24/24 at 07:30; Stop 01/23/25 at 07:29 Dextrose 50 ml AD PRN IV; Start 12/24/24 at 07:00; Stop 01/23/25 at 06:59 Glucagon 1 mg AD PRN IM; Start 12/24/24 at 07:00; Stop 01/23/25 at 06:59 Albuterol 1 UDVIAL [id number] IH; Start 12/24/24 at 13:00; Stop 12/24/24 at 12:52; Status DC Hydromorphone HCl 0.5 mg Q4H PRN IVP Last administered on 12/27/24at 14:01; Start 12/24/24 at 14:00; Stop 12/27/24 at 14:04; Status DC Hydralazine HCl 5 mg Q6H PRN IV Last administered on 12/25/24at 16:30; Start 12/25/24 at 08:30; Stop 01/24/25 at 08:29 Enoxaparin Sodium 40 mg DAILY SQ Last administered on 12/25/24at 12:01; Start 12/25/24 at 10:30; Stop 12/25/24 at 16:39; Status DC Piperacillin Sod/ Tazobactam Sod 3.375 gm Q8H IV Last administered on 01/01/25at 12:54; Start 12/25/24 at 10:30; Stop 01/04/25 at 10:29 Ketorolac Tromethamine 30 mg Q6H PRN IV Last administered on 12/29/24at 17:50; Start 12/25/24 at 15:00; Stop 12/30/24 at 14:59; Status DC Enoxaparin Sodium 30 mg BID SQ Last administered on 12/30/24at 21:03; Start 12/25/24 at 21:00; Stop 01/24/25 at 20:59; Status Hold Acetaminophen/ Hydrocodone Bitart 1 tab Q6H PRN PO; Start 12/27/24 at 14:30; Stop 12/27/24 at 14:21; Status DC Hydromorphone HCl 0.2 mg Q6H PRN IVP Last administered on 12/27/24at 22:45; Start 12/27/24 at 14:30; Stop 12/28/24 at 13:17; Status DC Docusate Sodium 100 mg BID PO Last administered on 01/01/25at 07:56; Start 12/27/24 at 21:00; Stop 01/26/25 at 20:59 Methylprednisolone Sodium Succinate 40 mg Q6H IVP Last administered on 12/27/24at 22:39; Start 12/27/24 at 19:00; Stop 12/28/24 at 00:52; Status DC Methylprednisolone Sodium Succinate 40 mg Q6H IVP Last administered on 12/30/24at 04:35; Start 12/28/24 at 05:00; Stop 12/30/24 at 10:30; Status DC Gadoterate Meglumine 10 mmol STK-MED ONCE IV; Start 12/28/24 at 16:20; Stop 12/28/24 at 16:20; Status DC Methylprednisolone Sodium Succinate 40 mg BID IVP Last administered on 01/01/25at 07:58; Start 12/30/24 at 21:00; Stop 01/29/25 at 20:59 Ibuprofen 400 mg Q6H PRN PO Last administered on 12/31/24at 14:38; Start 12/30/24 at 17:00; Stop 12/31/24 at 18:42; Status DC Ibuprofen 800 mg TIDP PRN PO Last administered on 01/01/25at 06:40; Start 12/31/24 at 19:00; Stop 01/29/25 at 16:59 EDUARDA SMITH MD Jan 01, 2025 13:31
--- NOTE | 2025-01-01 20:35 | NUR ---
MEDS SHIFT ASSESSMENT DONE, PLEASE REFER TO CHART. DUE MEDS ADMINISTERED, TOLERATED WELL. KEPT RESTED AND COMFORTABLE IN BED. CALL LIGHT WITHIN REACH. INSTRUCTED TO BE NPO POST MN FOR PROCEDURE IN AM. PT VERBALIZES UNDERSTANDING.
[2025-01-02] VITALS (23 sets, daily range): BP systolic 112–146; BP diastolic 52–88; PULSE 66–102; RESP 16–21; TEMP 97.2–98.2; O2SAT 96
[2025-01-02 05:46] LABS: NUCLEATED RED BLOOD CELLS 0.0 % (0.0-0.19); PLATELET COUNT (AUTO) 270.0 K/uL (130-400); RED BLOOD CELL COUNT(AUTO) 4.94 MIL/uL (4.00-5.50); RED CELL DISTRIBUTION WIDTH 16.7 % (11.0-15.5); WHITE BLOOD COUNT (AUTO) 14.7 K/uL (4.8-10.8)
[2025-01-02 05:58] LABS: CREATININE 0.6 mg/dL (0.5-1.0); GLOMERULAR FILTR. RATE CALC 96.0 mL/min (>90); GLUCOSE,RANDOM 95.0 mg/dL (70-105); SODIUM SERUM 140.0 mmol/L (136-145); UREA NITROGEN, BLOOD 17.0 mg/dL (7-18)
--- NOTE | 2025-01-02 06:45 | NUR ---
SURGERY PT TAKEN DOWN TO SURGERY AT THIS TIME BY [facility].
[2025-01-02] MEDS ORDERED: LIDOCAINE HCL MPF 1% 5ML VIAL ONE (06:58)
[2025-01-02] MEDS ORDERED: MIDAZOLAM HCL 1 MG/ML 2ML VIAL ONE (06:59)
[2025-01-02] MEDS: LIDOCAINE 1%-EPI 1:100,000 20 ML VIAL ONE (07:47)
[2025-01-02] MEDS ORDERED: NEOSTIGMINE METHYLSULFATE 1MG/ML IV ONE (08:01)
[2025-01-02] MEDS ORDERED: GLYCOPYRROLATE 0.2 MG/ML 5 ML VIAL ONE (08:01)
[2025-01-02] MEDS: 0.9%NACL 1000ML 1,000 ML IV ONE (09:28)
--- NOTE | 2025-01-02 12:25 | DS ---
[facility] DISCHARGE SUMMARY Date Patient Seen: Jan 02, 2025 Time of Visit: 1023 Supervising Physician: Dr. Panda PCP: Carol Burdick Inpatient Consults: General surgery, Hematology/Oncology, Neurosurgery PROBLEM LIST: 1. Ventral hernia S/P Laparoscopic lysis of adhesions converted to open ventral hernia repair with mesh incarcerated RESOLVED 2. Acute hypoxic respiratory failure resolved 3. Bilateral pneumonia worse on the Right will complete treatment with IV ABX at SNF 4. COPD on home O2 at baseline 5. Tobacco abuse 6. Morbid obesity 7. Obstructive sleep apnea undiagnosed & untreated -STOP-BANG SCORE 5 Point, High Risk of KEN 8. T-12 vertebral body erosive changes/pathologic fracture and paraspinal involvement metastasis s/p bone biopsy by IR 01/02/25. 9. Education was provided on importance of smoking cessation. Patient currently on nicotine patch. HOSPITAL COURSE: HPI (per admitting provider) Carline Ford is a 69-year-old lady status post day two ventral hernia repair requested pulmonary consult by primary team because of acute hypoxic respiratory failure chest x-ray indicating right lower lobe atelectasis verse pneumonia. Diagnosed on admission acute complicated cystitis. Vital signs: Temperature 97.5, pulse 99, respirations 20, blood pressure 150/90, oxygen saturation 95% 5 L high-flow nasal cannula. Lab results: WBC 10.6, previous day 12.3, trending down, hemoglobin 13.8, hematocrit 41 0.8%, platelets 258, sodium 138, potassium 3.9, BUN 11, creatinine 0.5, and magnesium 1.8. Chest x-ray reviewed results atelectasis right lower lobe, possible pneumonia Patient was seen and assess in the patient's room awake, alert, and oriented on high flow nasal cannula. Lung sounds clear over diminished with rales and rhonchi present. No stridor present. Patient requiring supplemental oxygen. Patient reports home O2 his previous history of smoking cigarettes 20+ years. Bilateral lower extremity edema. Abdomen round soft distended with bowel sounds present in all four quadrants. CT abdomen/pelvis without contrast results: There is a soft tissue mass within the left side of T12 vertebrae body resulting in moderate bony erosive changes. The mass extends into the spinal canal and posterior elements as well within the left paraspinal soft tissue. Impressions: Moderate right lung consolidation and small left lower lung consolidation concerning for pneumonia verse other neoplastic process not excluded. Small right-sided pleural effusion mediastinal lymphadenopathy. Few small abnormal airspace opacities in the right upper lung. Small consolidation or atelectasis in the right middle lobe. New soft tissue mass and T12 vertebrae body with moderate erosive change pathologic fracture spinal canal extension and left paraspinal involvement metastasize. Consider MRI thoracic spine with and without IV contrast for further evaluation. This report was dictated by Dr. Mari Baer on 12/25/2024 at 1915. 01/02 patient was seen and examined at bedside this morning. Patient is awake alert and oriented continues on oxygen 4 L nasal cannula. Patient had biopsy done to T12 vertebral this morning by IR. Patient's labs remain stable. Patient is hemodynamically stable. Patient cleared for discharge by Hematology patient will discharge to a fpc facility. Patient denies shortness of breath, chest pain, or any other discomforts. ACTIVE PROBLEM LIST FOR THE HOSPITALIZATION: CHRONIC PROBLEMS: continue previous management per PCP unless otherwise indicated CREAM BEATER FINDINGS/RECOMMENDATIONS: Recommendations per hematology/oncology T11 bone lesion: 69 y/o female with no previous cancer history presenting with back pain found to have a T11 lesion suspicious for neoplastic process. Will need tissue diagnosis, possible surgical management. Currently on Solumedrol per primary team. No cytopenia, renal impairment or hypercalcemia. Pending SPEP and light chain. Will need PET imaging to evaluate for primary process. Defer pain management to primary team. Will continue to follow. Recommendations per neurology We will consider biopsy if the patient agrees and depending upon the results, we will decide further treatment. The patient was addressed with the staff nurse present and we plan to do the biopsy on Thursday. Recommendations per general surgery she can follow with Dr. Blanco as scheduled for postop visit; keep candice drain in until she sees Dr. Blanco PROCEDURES: as mentioned above DISCHARGE MEDICATIONS: Pt hemodynamically stable and afebrile at time of discharge. PCP notified of patients admission, hospital course and discharge. Continued Medications: Atorvastatin Calcium (Lipitor) 20 Mg Tab 1 TAB PO HS for 30 Days, #30 TAB 0 Refills Cyanocobalamin (Vitamin B-12) (Vitamin B-12) 1,000 Mcg Capsule 500 MCG PO DAILY, CAP Ergocalciferol (Vitamin D2) (Vitamin D2) 1,250 Mcg (10275 Unit) Capsule 1 CAP PO QWEEK Fish Oil/Dha/Epa (Fish Oil 1,200 mg Fish Oil) 1,200 Mg-144 Mg-216 Mg Capsule 1 EACH PO DAILY, CAP Fluticasone/Vilanterol (Breo Ellipta 100-25 Mcg INH) 100 Mcg-25 Mcg/Dose Aer.pow.ba 1 PUFF IH DAILY Linaclotide (Linzess) 290 Mcg Capsule 1 CAP PO DAILY Losartan Potassium (Losartan Potassium) 100 Mg Tablet 1 TAB PO DAILY for 30 Days, #30 TAB 0 Refills Multivits-Min/FA/Lycopene/Lut (Sentry Senior Tablet) 0.4 Mg-300 Mcg-250 Mcg Tablet 1 EACH PO DAILY, TAB Vitamin E Mixed (Vitamin E) 400 Unit Capsule 1 CAP PO DAILY for 30 Days, #60 CAP 0 Refills PHYSICAL EXAM: GENERAL: alert, weak, awake oriented x 3 HEENT: EOMI, Sclera non icteric, moist mucosa NECK: Supple, no JVD, trachea midline LUNGS: Diminished breath sounds bilaterally. wheezes upper lobes HEART: Regular rate and rhythm. Normal S1 and S2, without murmurs ABD: Abdomen soft, nontender. Bowel sounds present EXT: No clubbing cyanosis or edema NEURO: Alert and oriented to person, follows commands FOLLOW-UP: Follow-up with PCP in 3-5 days Follow up with hematology / oncology within 3-5 days Follow up with neurosurgery within 3-5 days RECOMMENDATIONS: See Discharge Instructions This case was seen and discussed with my supervising physician 35 minutes spent on discharge process, including evaluation of the patient, discussion with nursing staff, medication reconciliation and follow-up appointments GERARDO COYNE APRN Jan 02, 2025 12:25
--- NOTE | 2025-01-02 12:43 | DS ---
Discharge Summary Hospital Course Summary: 69-year-old woman admitted for surgery and ventral hernia. Has had a complicated course with atelectasis versus right lower lobe pneumonia, acute respiratory failure. Course of workup, she had a CAT scan which showed tumor destroying T12. A previous MRI at this facility in late November showed the same lesion but also suggested possibly extension to other vertebrae and metastasis to other bones. 12/23 Patient underwent ventral hernia repair. 12/27 T12 mass is known to the patient. Heme oncology evaluation can be performed inpatient or outpatient/SNF. Patient pending SNF placement. 12/28 patient continues to be in pain as expected due to her spinal mass. Added oral pain medications 12/29/24 MRI of thoracic has been reviewed. We will follow the recommendation from Oncology, pending biopsy. 01/02 Biopsy done today. Cleared by heme oncology to proceed with SNF with follow up in seven days. Final Neurosurgery Recommendations: We will consider biopsy if the patient agrees and depending upon the results, we will decide further treatment. The patient was addressed with the staff nurse present and we plan to do the biopsy on Thursday morning. Final Oncology Recommendations: Proceed with surgery today. Continue pain management. Further recommendations to follow. Patient discharghed to SNF. Follow up with Dr. Blanco as scheduled for postop visit. Medications as per med rec. Assessment/Plan: ASSESSMENT: Primary: Status post open ventral hernia repair with mesh (incarcerated, [employer] defect) Metastatic invasion of the spine, POA Secondary: Acute hypoxic respiratory failure, improved Bilateral pneumonia, right > left, improving COPD on home O2 Morbid obesity Diabetes mellitus type 2 Hypertension Hyperlipidemia Nicotine dependence Obstructive sleep apnea, high risk (STOP-BANG 5) T11 vertebral body lytic lesion with pathologic fracture (pending biopsy) Plan: Continue Zosyn Trend WBCs Follow-up cultures Continue IV steroids O2 nasal cannula as needed Follow up with Pulmonary Medicine Continue atorvastatin, losartan Monitor blood pressure GI soft diet No need for GI prophylaxis No need for IV fluids Trend a.m. BMP Replete electrolytes as necessary DVT prophylaxis with Lovenox Trend a.m. CBC Follow up with heme oncology -recommend spinal mass biopsy Follow up with Neurosurgery -recommend spinal mass biopsy Full code Case was discussed with patient's nurse at bedside Attention time greater than 30 minutes Home Medications: Active Scripts Pantoprazole Sodium (Protonix) 40 Mg Tablet., 40 MG PO DAILY, #10 TAB Prov:CHARLINE SERRANO IV, MD 01/02/25 Nicotine (Nicotine Patch) 21 Mg/24 Hour Patch.td24, 21 MG TD DAILY, #10 PATCH Prov:CHARLINE SERRANO IV, MD 01/02/25 Ibuprofen (Ibuprofen 800 mg Tab) 800 Mg Tab, 800 MG PO TID PRN for MODERATE PAIN (4-6), #1 TAB Prov:CHARLINE SERRANO IV, MD 01/02/25 Reported Medications Fish Oil/Dha/Epa (Fish Oil 1,200 mg Fish Oil) 1,200 Mg-144 Mg-216 Mg Capsule, 1 EACH PO DAILY, CAP 12/19/24 Ergocalciferol (Vitamin D2) (Vitamin D2) 1,250 Mcg (64095 Unit) Capsule, 1 CAP PO QWEEK 12/19/24 Linaclotide (Linzess) 290 Mcg Capsule, 1 CAP PO DAILY 12/19/24 Fluticasone/Vilanterol (Breo Ellipta 100-25 Mcg INH) 100 Mcg-25 Mcg/Dose Aer.pow.ba, 1 PUFF IH DAILY 12/19/24 Vitamin E Mixed (Vitamin E) 400 Unit Capsule, 1 CAP PO DAILY for 30 Days, #60 CAP 0 Refills 01/20/24 Cyanocobalamin (Vitamin B-12) (Vitamin B-12) 1,000 Mcg Capsule, 500 MCG PO DAILY, CAP 01/20/24 Atorvastatin Calcium (LIPITOR) 20 Mg Tab, 1 TAB PO HS for 30 Days, #30 TAB 0 Refills 01/20/24 Losartan Potassium (Losartan Potassium) 100 Mg Tablet, 1 TAB PO DAILY for 30 Days, #30 TAB 0 Refills 01/20/24 Multivits-Min/FA/Lycopene/Lut (Sentry Senior Tablet) 0.4 Mg-300 Mcg-250 Mcg Tablet, 1 EACH PO DAILY, TAB 01/20/24 Time spent arranging discharge: 31-60 minutes CHARLINE SERRANO IV, MD Jan 02, 2025 12:43
[2025-01-02] MEDS ORDERED: IBUP-2077 PO (12:45)
[2025-01-02] MEDS ORDERED: NICO-777 TD (12:45)
[2025-01-02] MEDS ORDERED: PANT40TA PO (12:45)
--- NOTE | 2025-01-02 18:37 | NUR ---
DISCHARGE PT GO DISCHARGE ORDERS. CALL REPORT TO RECEIVING FACILITY, REMOVED IV, EDUCATION GIVEN. LEFT FACILITY IN STABLE CONDITION VIA VAN FROM RECEIVING FACILITY.
--- NOTE | 2025-01-02 20:08 | OP ---
DATE OF PROCEDURE: 01/02/2025 PREOPERATIVE DIAGNOSIS: T11 vertebral body tumor. POSTOPERATIVE DIAGNOSIS: T11 vertebral body tumor. PROCEDURE: Left T11 percutaneous vertebral body biopsy. ESTIMATED BLOOD LOSS: Nil. DISPOSITION: The patient tolerated the procedure well. COMPLICATIONS: There were no complications. DESCRIPTION OF PROCEDURE: The patient was brought to the operating room. Adequate general endotracheal anesthesia was achieved. IV antibiotics were given. Thereafter, the patient underwent placement of DVT garments, positioned prone with adequate padding to all pressure areas. The back was extensively prepped and draped in the usual sterile fashion, delineated by the C-arm. The incision was delineated and then the stab incision was done with the trocar and then under AP and lateral fluoroscopy, we proceeded to place the trocar and through there ____ the vertebral body, the biopsy was taken in multiple pieces. This was sent for permanent. The trocar was removed ____ was done. The patient tolerated the procedure well. There were no complications. TID: [id number] RECEIPT: [id number]
--- NOTE | 2025-01-02 22:02 | PN ---
SUBJECTIVE: She remains stable over the weekend. She is going down for a biopsy and treatment of this metastatic lesion to the T-spine. She is awake, alert. PHYSICAL EXAMINATION: GENERAL: She is a pleasant woman. VITAL SIGNS: Blood pressure 126/65, pulse 65, respirations 20. CHEST: Clear, soft. EXTREMITIES: Show edema. NEUROLOGIC: Alert and oriented. IMPRESSION: * Destructive lesion, T-spine for biopsy. * Pneumonia. * Ventral hernia repair. Other problems as listed. PLAN: Proceed with surgery today. Continue pain management. Further recommendations to follow. TID: [id number] RECEIPT: [id number]
[2025-01-03 10:14] LABS: FREE KAPPA LIGHT CHAINS,S 16.0 mg/L (3.3-19.4)
[2025-01-03 14:12] LABS: ALBUMIN (IFE & ELECTROPHOR) 2.8 g/dL (2.9-4.4); ALBUMIN/GLOBULIN RATIO (IFE) 1.3 (0.7-1.7); ALPHA-1 (IFE & PEP) 0.3 g/dL (0.0-0.4); ALPHA-2 (IFE & PEP) 0.8 g/dL (0.4-1.0); BETA (IFE & ELP) 0.8 g/dL (0.7-1.3); GAMMA GLOBULINS (IFE & ELP) 0.5 g/dL (0.4-1.8); GLOBULIN TOTAL (IFE) 2.3 g/dL (2.2-3.9); IGA (IFE) 88 mg/dL (64-422); IGG (IMMUNOFIXATION) 579 mg/dL (586-1602); IGM (IMMUNOFIXATION) 50 mg/dL (26-217); M-SPIKE (IEP) Not Observed g/dL (Not Observed)
--- NOTE | 2025-01-07 10:35 | HMCIMG ---
Intraoperative fluoroscopic assessment of the thoracic spine intraoperative study INDICATION: Biopsy of T11 COMPARISON: None available Fluoroscopy time: 0.91. FINDINGS: 13 images demonstrate patient undergoing biopsy of T11 vertebral body interpedicular approach IMPRESSION: Details of the finding in the procedure well.
== END 2025-01-02 18:20 | DRG 353 ==
LOC: DAH 06:30 → DAHIP 06:31 → DAH 06:31 → 3DH 13:30
PROVIDERS: ADMIT Internal Medicine Critical Care Medicine; ATTEND Internal Medicine Critical Care Medicine
PROC: 0WJF4ZZ Inspection of Abdominal Wall, Percutaneous Endoscopic Approach (ICD-10-PCS; 2024-12-23)
PROC: 8E0W4CZ Robotic Assisted Procedure of Trunk Region, Percutaneous Endoscopic Approach (ICD-10-PCS; 2024-12-23)
PROC: 0WUF0JZ Supplement Abdominal Wall with Synthetic Substitute, Open Approach (ICD-10-PCS; principal; 2024-12-23 08:00)
PROC: 5A09357 Assistance with Respiratory Ventilation, Less than 24 Consecutive Hours, Continuous Positive Airway Pressure (ICD-10-PCS; 2024-12-27)
PROC: 00BX3ZX Excision of Thoracic Spinal Cord, Percutaneous Approach, Diagnostic (ICD-10-PCS; 2025-01-02)
DX: K43.6 Other and unspecified ventral hernia with obstruction, without gangrene (principal); J18.9 Pneumonia, unspecified organism; J96.01 Acute respiratory failure with hypoxia; J44.0 Chronic obstructive pulmonary disease with (acute) lower respiratory infection; C79.51 Secondary malignant neoplasm of bone; N30.00 Acute cystitis without hematuria; J90 Pleural effusion, not elsewhere classified; M84.48XA Pathological fracture, other site, initial encounter for fracture; E66.01 Morbid (severe) obesity due to excess calories; I10 Essential (primary) hypertension; E11.9 Type 2 diabetes mellitus without complications; K66.0 Peritoneal adhesions (postprocedural) (postinfection); E78.5 Hyperlipidemia, unspecified; I25.10 Atherosclerotic heart disease of native coronary artery without angina pectoris; F17.210 Nicotine dependence, cigarettes, uncomplicated; G47.33 Obstructive sleep apnea (adult) (pediatric); Z53.31 Laparoscopic surgical procedure converted to open procedure; Z63.72 Alcoholism and drug addiction in family; Z71.6 Tobacco abuse counseling; Z82.3 Family history of stroke; Z82.49 Family history of ischemic heart disease and other diseases of the circulatory system; Z82.5 Family history of asthma and other chronic lower respiratory diseases; Z90.710 Acquired absence of both cervix and uterus; Z99.81 Dependence on supplemental oxygen; Z81.1 Family history of alcohol abuse and dependence
CPT/HCPCS: 36415; 36600; 71045; 71250; 72074; 72157; 80048; 80053; 80076; 81001; 82803; 82948; 83521; 83735; 85025; 85027; 85610; 85730; 86334; 87071; 87086; 87205; 87426; 87804; 88302; 93005; 93970; 94640; 94660; 94664; A4450; A4606; G0378; J0360; J0690; J1100; J1171; J1650; J1815; J1885; J2003; J2250; J2270; J2405; J2543; J2704; J2710; J2919; J3010; J3475; J3490; J7030; J7120; A4213; A4215; A4216; A4221; A4222; A4223; A4600; A4649; A4663; A4930; A6204; A6251; A6260; A9575; C1713; C1781; J0665